=== PATIENT | male | born 1940 | race Caucasian/White ===

== ENCOUNTER 2017-01-15 10:18 | Inpatient (IN) ==
[2017-01-15] MEDS ORDERED: 0.9 % Sodium Chloride 1,000 ML IVC ONE ×4 (11:05→13:34)
--- NOTE | 2017-01-15 11:23 | Emergency Department Note ---
Disposition Clinical Impression: SIRS (systemic inflammatory response syndrome), Abdominal wall mass Hypotension Qualifiers: Hypotension type: unspecified hypotension type Qualified Code(s): I95.9 - Hypotension, unspecified Acute kidney failure Qualifiers: Acute renal failure type: unspecified Qualified Code(s): N17.9 - Acute kidney failure, unspecified Disposition: Admitted As Inpatient Condition: Fair [facility]: [facility]Primary Care Provider[facility] - Forms: Work/School Release, ED Satisfaction Letter Time of Disposition: 14:56 General Adult HPI - General Chief complaint: ED General Medical Stated complaint: rule out sepsis Time Seen by Provider: 01/15/17 10:23 Source: EMS Mode of arrival: EMS Limitations: no limitations Nursing Notes Reviewed: Yes Vital Signs Reviewed: Yes - History of Present Illness HPI Narrative: Patient 76-year-old male who initially presented to the [place] urgent care he is driving to the facility and he began to feel as though he is going to pass out when he became dizzy and then upon arrival he did not remember driving there. The patient had a blood pressure of 78/52, and the was pale in color. At the time the patient was alert and oriented 3 and cooperative. He was transferred here with the diagnosis of SIRS and hypotension secondary to a suspected abdominal wall abscess. Received 1 L of normal saline dose of Rocephin, and an aspirin at the urgent care center. On arrival to the emergency department the patient is alert and oriented and mentating appropriately. had worsening redness and swelling around his colostomy bag that started on January. On arrival to the [place] he did not recall driving there. 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 Patient denies any fevers, chills, chest pain, shortness of breath, nausea or vomiting. He does c/o dysuria that began today. Onset (ago): day(s) Pain Scale: 8 - Related Data Home Medications Medication Instructions Recorded Confirmed Albuterol Sulfate [Albuterol 2 puff IH Q8H PRN 12/15/15 01/15/17 Inhaler] Aspirin Enteric Coated [Aspirin EC] 81 mg PO DAILY 12/15/15 01/15/17 Benzonatate [Tessalon] 100 mg PO Q4H PRN 12/15/15 01/15/17 Budesonide/Formoterol 160/4.5 2 puff IH BIDR 12/15/15 01/15/17 [Symbicort 160/4.5] Carvedilol [Coreg] 50 mg PO BID 12/15/15 01/15/17 Guaifenesin 400 mg PO DAILY PRN 12/15/15 01/15/17 Ipratropium/Albuterol Neb [Duoneb] 3 ml IH Q6HR 12/15/15 01/15/17 Isosorbide MONOnitrate (24 HR) 45 mg PO DAILY 12/15/15 01/15/17 [Imdur] Metformin HCl [Glucophage] 500 mg PO BID 12/15/15 01/15/17 Nortriptyline [Pamelor] 10 mg PO TID 12/15/15 01/15/17 OxyCODONE ER (12 HR) [OxyCONTIN] 20 mg PO Q8H 12/15/15 01/15/17 Pantoprazole Sodium 40 mg PO DAILY 12/15/15 01/15/17 Terazosin HCl 2 mg PO HS 12/15/15 01/15/17 Valsartan [Diovan] 40 mg PO BID 12/15/15 01/15/17 Aloe Vera/Collagen [Aloe Rampart 1 appl TP AD PRN 01/15/17 01/15/17 Cleansing Foam] Atorvastatin Calcium [Lipitor] 10 mg PO DAILY 01/15/17 01/15/17 Clopidogrel [Plavix] 75 mg PO DAILY 01/15/17 01/15/17 Furosemide [Lasix] 20 mg PO QAM 01/15/17 01/15/17 Insulin NPH Human Isophane 22 unit SQ QAM 01/15/17 01/15/17 [Novolin N] Insulin NPH Human Isophane 27 unit SQ QPM 01/15/17 01/15/17 [Novolin N] L. Acidophilus/Pectin, [place] 1 cap PO DAILY 01/15/17 01/15/17 [Acidophilus Probiotic Capsule] Lisinopril 2.5 mg PO DAILY 01/15/17 01/15/17 Loratadine [Allergy Relief] 10 mg PO DAILY 01/15/17 01/15/17 Nitroglycerin [Nitrostat] 0.4 mg SL AD PRN 01/15/17 01/15/17 Spironolactone [Aldactone] 12.5 mg PO DAILY 01/15/17 01/15/17 Allergies Allergy/AdvReac Type Severity Reaction Status Date / Time iodine Allergy Hives Verified 12/15/15 11:22 ondansetron Allergy Hives Verified 01/15/17 11:38 [From Zofran (as hydrochloride)] All systems ED: reviewed and negative except as stated. Past Medical History - Past Medical History Medical history: Reports: arthritis, asthma, cardiomyopathy, COPD, coronary artery disease, diabetes, GERD, hyperlipidemia, hypertension, myocardial infarction, osteoporosis, peripheral artery disease, venous stasis, other Surgical history: Reports: angioplasty/stent, colostomy, coronary bypass (CABG) , herniorrhaphy (Bilateral hernia repair), other Psychiatric history: Reports: no psych history - Social History Smoking Status: Heavy tobacco smoker Smokeless Tobacco Status: No Alcohol use: Reports: none Drug use: Reports: none Physical Exam - General Limitations: no limitations General appearance: alert, in no apparent distress - Head Head exam: atraumatic, normocephalic - Eye Eye exam: Present: normal appearance, PERRL, EOMI - ENT ENT exam: normal exam, normal oropharynx - Neck Neck exam: Present: normal inspection, full ROM, trachea midline. Absent: lymphadenopathy - Chest Chest inspection: Present: normal inspection, symmetric chest wall rise, other ( surgical scar from CABG). Absent: rash - Respiratory Respiratory exam: Present: wheezes, other. Absent: respiratory distress, stridor, accessory muscle use - Expanded Respiratory Exam Location: wheezes: Lower, Left, Right, Upper, rales: Right, Lower (base) - Cardiovascular Cardiovascular exam: Present: regular rate, normal rhythm, normal heart sounds. Absent: JVD - Abdominal Exam Abdominal exam: Present: tenderness, hyperactive bowel sounds, other (Pt has an colostomy to the lateral right side of his periumbilical area. The area near the colostomy erythematous, warm, and has an area of induration 8x8 cm. He has an old surgical scar from his past colostomy that is healed with a small 1x1cm area of scabbing. No obvious drainage. Colostomy bag is 3/4 full. ). 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 ) - Back Exam Back exam: Present: normal inspection. Absent: rashes - Neurological Exam Neurological exam: Present: alert, oriented X3, CN II-XII intact. Absent: motor sensory deficit - Psychiatric Psychiatric exam: Present: normal affect, normal mood - Skin Skin exam: Present: warm, dry, rash (area of erythema, [id number], and induration as noted in the abdominal exam. ), pallor - Expanded Skin Exam Type of lesion: Present: rash Distribution: abdomen Description: Present: size (8x8cm), erythematous, swelling, indurated. Absent: fluctuant Course Course Narrative: Since the ED from the [place] [facility] for rule out sepsis. The blood pressure 78/52 to be pale in color. It was concerning for sepsis is transferred to our emergency department and while at the center of the patient had been given ceftriaxone, 1 L bolus normal saline, and 325mg aspirin. Patient had ABG done is within normal limits except for his lactate was slightly elevated at 1.6. CBC done with a white blood cell count of 14.8 and hemoglobin of 11.4. Troponin and was negative. His EKG showed a rate of 81 sinus rhythm with occasional PVCs T-wave inversions in multiple leads we will do a repeat EKG here and check his old EKGs Order a sepsis workup on this patient and additionally we will check a chest x-ray, CT of abdomen and pelvis without IV or oral contrast, and the repeat EKG. Also started a liter bolus of fluid. - Reevaluation(s) Reevaluation #1: I reviewed the patient's chest x-ray that was performed at the [place] prior to arrival today. Interpretation was done by myself without consult the radiologist. No widening of the mediastinum, visualized the diaphragmatic recesses I do not see any obvious pleural effusion, no focal infiltrate, trachea is midline, and no subcutaneous emphysema. CBC showed a mildly elevated WBC 13.4, coags were not concerning, chemistry showed elevated creatinine of 2.07 when compared to 1.24 a year ago this may be due to hypoperfusion. I am awaiting the results of the patient's CT abdomen/ pelvis. His EKG does have nonspecific ST wave abnormalities with T wave inversions that are new when compared to old. PE vital signs: HR 81 , RR18, BP 99/59, OxSat 99 on 2L She is stable in the room. Resting in bed. He is requesting something for pain but we notified him that we need to see improvements in his blood pressure before analgesics can be given. Patient understands. Time: 12:50 Reevaluation #2: Pt CT results back. Show hypermetabolic soft tissue in right rectus abdominus musculature appears increased since February 2016. Chronic abscess is considered less likely. Tissue sampling recommended. The patient had an episode of difficulty breathing, he became very anxious. His pulse ox was 98% on 2L. He normally receives 4 breathing treatments a day. Respiratory was paged for a treatment. The patient's blood pressure has been improving we will give him some dilaudid for pain. Time: 14:15 Reevaluation #3: Discuss the patient with contract manager hospitalist Sue Mercedes MD. She agrees to admit the patient. She requested we start vancomycin and consult surgery. Time: 14:36 Additional Reevaluation(s): Surgery: Dr. López has agreed to consult the patient in house. Vital Signs Temperature 98.5 F 01/15/17 10:21 Pulse Rate 81 01/15/17 10:21 Respiratory Rate 18 01/15/17 10:21 Blood Pressure 108/67 01/15/17 10:21 O2 Sat by Pulse Oximetry 97 01/15/17 10:21 Temperature 98.5 F 01/15/17 10:21 Pulse Rate 83 01/15/17 13:30 Respiratory Rate 22 01/15/17 14:17 Blood Pressure 125/67 01/15/17 13:30 O2 Sat by Pulse Oximetry 89 01/15/17 14:17 Oxygen Delivery Oxygen Delivery Nasal Cannula Medical Decision Making - MDM Narrative Medical decision making narrative: 77 male sent from the [place] urgent care for rule out sepsis due to patient being pale color and having a low blood pressure around 90s systolic. Since arrival to the ED we have given the patient 3 L boluses of normal saline his repeat blood pressure is 116/60 and improving. His CMP showed an elevated creatinine when compared to prior could be new or related to low perfusion. The patient's CXR did not appear to have a focal infitrate. His urine was negative. The patients CT Abdomen and Pelvis showed hypermetabolic soft tissue in the right rectus a bdmonius appearing to be increasing in size from last CT. Findings concerning for metastatic disease. Abscess unlikely. I believe the erythema and swelling near the patient's colostomy is a cellulitis. I consulted Dr. Mercedes (hospitalist) and she agreed to take the patient for treatment of his cellulitis and further investigation of his CT findings. She recommended starting vancomycin in ED and consult surgery. We consulted Dr. López and he agreed to see the patient in house. Pt understands and agrees with plan. - Medical Records Medical records reviewed: Yes I reviewed the patient's medical records. - Lab Data Lab results reviewed: Yes I reviewed the patient's lab results. Result diagrams: 01/15/17 11:25 01/15/17 11:25 Lab Results 01/15/17 01/15/17 01/15/17 Range/Units 11:25 11:25 11:25 WBC 13.4 H (4.3-11.1) K/mcL RBC 3.08 L (4.19-5.50) M/mcL Hgb 9.9 L (12.9-16.9) g/dL Hct 29.2 L (37.5-50.1) % MCV 94.8 (83.0-100.0) fL MCH 32.1 (28.0-33.3) pg MCHC 33.9 (31.6-35.5) g/dL RDW 12.8 (11.5-14.5) % Plt Count 196 (140-400) K/mcL MPV 9.4 (9.4-12.4) fL Immature Gran % 0.7 (0-4) % Seg Neutrophils % 73.2 % Lymphocytes % 12.6 % Monocytes % 8.1 % Eosinophils % 5.0 % Basophils % 0.4 % Neutrophils # 9.8 H (1.6-8.9) K/mcL Lymphocytes # 1.7 (0.6-4.6) K/mcL Monocytes # 1.1 (0.0-1.3) K/mcL Eosinophils # 0.7 H (0.0-0.6) K/mcL Basophils # 0.1 (0.0-0.2) K/mcL PT 13.9 H (9.4-12.1) Seconds INR 1.3 APTT 26.9 (26.0-36.0) Seconds Sodium 136 (136-145) mEq/L Potassium 4.5 (3.5-4.5) mEq/L Chloride 105 (98-109) mEq/L Carbon Dioxide 22 (19-29) mEq/L BUN 43 H (8-26) mg/dL Creatinine 2.07 H (0.72-1.25) mg/dL Est GFR ( Amer) 38 L (> 60) Est GFR (Non-Af Amer) 32 L (> 60) BUN/Creatinine Ratio 21 (6-26) Glucose 154 H (70-99) mg/dL Calculated Osmolality 296 (280-300) Lactic Acid (0.5-2.2) mmol/L Calcium 8.8 (8.6-10.8) mg/dL Phosphorus 4.0 (2.3-4.7) mg/dL Magnesium 1.4 L (1.6-2.6) mg/dL Total Bilirubin 0.2 (0.2-1.2) mg/dL Direct Bilirubin 0.2 (0.0-0.5) mg/dL Indirect Bilirubin 0.0 (0.0-1.2) mg/dL AST 9 (5-34) Units/L ALT 8 (0-55) Units/L Alkaline Phosphatase 73 (38-126) Units/L Troponin I (0-0.03) ng/mL Serum Total Protein 6.5 (6.0-8.3) g/dL Albumin 3.0 L (3.5-5.0) g/dL Globulin 3.5 (2.4-3.5) g/dL Albumin/Globulin Ratio 0.9 L (1.1-2.2) Urine Color (Yellow) Urine Clarity (Clear) Urine pH (5.0-8.0) pH Units Ur Specific [place] (1.010-1.025) Urine Protein (Neg-Trace) mg/dL Urine Glucose (UA) (Normal) mg/dL Urine Ketones (Negative) mg/dL Urine Blood (Negative) Urine Nitrite (Negative) Urine Bilirubin (Negative) Urine Urobilinogen (Normal) mg/dL Ur Leukocyte Esterase (Negative) Urine Microscopic RBC (0-3) per hpf Urine Microscopic WBC (0-3) per hpf Ur Squamous Epith Cells (None-Few) per lpf Urine Bacteria (None-Few) per hpf Hyaline Casts (None-Few) per lpf Ur Culture Indicated? (NO) 01/15/17 01/15/17 01/15/17 Range/Units 11:25 11:25 13:26 WBC (4.3-11.1) K/mcL RBC (4.19-5.50) M/mcL Hgb (12.9-16.9) g/dL Hct (37.5-50.1) % MCV (83.0-100.0) fL MCH (28.0-33.3) pg MCHC (31.6-35.5) g/dL RDW (11.5-14.5) % Plt Count (140-400) K/mcL MPV (9.4-12.4) fL Immature Gran % (0-4) % Seg Neutrophils % % Lymphocytes % % Monocytes % % Eosinophils % % Basophils % % Neutrophils # (1.6-8.9) K/mcL Lymphocytes # (0.6-4.6) K/mcL Monocytes # (0.0-1.3) K/mcL Eosinophils # (0.0-0.6) K/mcL Basophils # (0.0-0.2) K/mcL PT (9.4-12.1) Seconds INR APTT (26.0-36.0) Seconds Sodium (136-145) mEq/L Potassium (3.5-4.5) mEq/L Chloride (98-109) mEq/L Carbon Dioxide (19-29) mEq/L BUN (8-26) mg/dL Creatinine (0.72-1.25) mg/dL Est GFR ( Amer) (> 60) Est GFR (Non-Af Amer) (> 60) BUN/Creatinine Ratio (6-26) Glucose (70-99) mg/dL Calculated Osmolality (280-300) Lactic Acid 1.0 0.9 (0.5-2.2) mmol/L Calcium (8.6-10.8) mg/dL Phosphorus (2.3-4.7) mg/dL Magnesium (1.6-2.6) mg/dL Total Bilirubin (0.2-1.2) mg/dL Direct Bilirubin (0.0-0.5) mg/dL Indirect Bilirubin (0.0-1.2) mg/dL AST (5-34) Units/L ALT (0-55) Units/L Alkaline Phosphatase (38-126) Units/L Troponin I 0.01 (0-0.03) ng/mL Serum Total Protein (6.0-8.3) g/dL Albumin (3.5-5.0) g/dL Globulin (2.4-3.5) g/dL Albumin/Globulin Ratio (1.1-2.2) Urine Color (Yellow) Urine Clarity (Clear) Urine pH (5.0-8.0) pH Units Ur Specific [place] (1.010-1.025) Urine Protein (Neg-Trace) mg/dL Urine Glucose (UA) (Normal) mg/dL Urine Ketones (Negative) mg/dL Urine Blood (Negative) Urine Nitrite (Negative) Urine Bilirubin (Negative) Urine Urobilinogen (Normal) mg/dL Ur Leukocyte Esterase (Negative) Urine Microscopic RBC (0-3) per hpf Urine Microscopic WBC (0-3) per hpf Ur Squamous Epith Cells (None-Few) per lpf Urine Bacteria (None-Few) per hpf Hyaline Casts (None-Few) per lpf Ur Culture Indicated? (NO) 01/15/17 Range/Units 14:11 WBC (4.3-11.1) K/mcL RBC (4.19-5.50) M/mcL Hgb (12.9-16.9) g/dL Hct (37.5-50.1) % MCV (83.0-100.0) fL MCH (28.0-33.3) pg MCHC (31.6-35.5) g/dL RDW (11.5-14.5) % Plt Count (140-400) K/mcL MPV (9.4-12.4) fL Immature Gran % (0-4) % Seg Neutrophils % % Lymphocytes % % Monocytes % % Eosinophils % % Basophils % % Neutrophils # (1.6-8.9) K/mcL Lymphocytes # (0.6-4.6) K/mcL Monocytes # (0.0-1.3) K/mcL Eosinophils # (0.0-0.6) K/mcL Basophils # (0.0-0.2) K/mcL PT (9.4-12.1) Seconds INR APTT (26.0-36.0) Seconds Sodium (136-145) mEq/L Potassium (3.5-4.5) mEq/L Chloride (98-109) mEq/L Carbon Dioxide (19-29) mEq/L BUN (8-26) mg/dL Creatinine (0.72-1.25) mg/dL Est GFR ( Amer) (> 60) Est GFR (Non-Af Amer) (> 60) BUN/Creatinine Ratio (6-26) Glucose (70-99) mg/dL Calculated Osmolality (280-300) Lactic Acid (0.5-2.2) mmol/L Calcium (8.6-10.8) mg/dL Phosphorus (2.3-4.7) mg/dL Magnesium (1.6-2.6) mg/dL Total Bilirubin (0.2-1.2) mg/dL Direct Bilirubin (0.0-0.5) mg/dL Indirect Bilirubin (0.0-1.2) mg/dL AST (5-34) Units/L ALT (0-55) Units/L Alkaline Phosphatase (38-126) Units/L Troponin I (0-0.03) ng/mL Serum Total Protein (6.0-8.3) g/dL Albumin (3.5-5.0) g/dL Globulin (2.4-3.5) g/dL Albumin/Globulin Ratio (1.1-2.2) Urine Color Yellow (Yellow) Urine Clarity Clear (Clear) Urine pH 5.5 (5.0-8.0) pH Units Ur Specific [place] 1.019 (1.010-1.025) Urine Protein Trace (Neg-Trace) mg/dL Urine Glucose (UA) Normal (Normal) mg/dL Urine Ketones Negative (Negative) mg/dL Urine Blood Negative (Negative) Urine Nitrite Negative (Negative) Urine Bilirubin Negative (Negative) Urine Urobilinogen Normal (Normal) mg/dL Ur Leukocyte Esterase Negative (Negative) Urine Microscopic RBC 0-3 (0-3) per hpf Urine Microscopic WBC 0-3 (0-3) per hpf Ur Squamous Epith Cells Many H (None-Few) per lpf Urine Bacteria None Seen (None-Few) per hpf Hyaline Casts None Seen (None-Few) per lpf Ur Culture Indicated? NO (NO) - Radiology Data Radiology results reviewed: Yes I reviewed the patient's radiology results. Abdomen/Pelvis CT 01/15/17 11:09 IMPRESSION: 1. Previously described hypermetabolic soft tissue in the right rectus abdominus musculature appears increased in size since February 2016, now measuring 3.8 x 3.4 x 3.3 cm. Finding remains concerning for metastatic disease. Chronic abscess is considered less likely. Tissue sampling is recommended if not already performed. 2. 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 No complication. 3. Cholelithiasis. 4. Severe atherosclerosis. D/ / 01/15/2017 13:05:25 Mariel Shah MD / dane Interpreting Provider: Mariel Shah MD Abdomen/Pelvis CT 01/15/17 11:09 IMPRESSION: 1. Previously described hypermetabolic soft tissue in the right rectus abdominus musculature appears increased in size since February 2016, now measuring 3.8 x 3.4 x 3.3 cm. Finding remains concerning for metastatic disease. Chronic abscess is considered less likely. Tissue sampling is recommended if not already performed. 2. 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 No complication. 3. Cholelithiasis. 4. Severe atherosclerosis. D/ / 01/15/2017 13:05:25 Mariel Shah MD / dane Interpreting Provider: Mariel Shah MD Chest X-Ray 01/15/17 11:10 IMPRESSION: No acute process. Stable cardiomegaly D/ / Jhonatan Gomez MD / Jhonatan Gomez MD Interpreting Provider: Jhonatan Gomez MD - EKG Data EKG #1 EKG attestation: Yes I reviewed and interpreted this EKG. EKG results narrative: EKG was performed on 01/15/2017 11:38. The rate is 81 beats per minutes, IL interval of 161, QRS 116, QT 355, QTC of 393 is sinus rhythm. T wave changes in leads V2 through V5 T wave inversions that are new compared to his old EKG on 12-15-2015. This can be concerning for ischemia.
[2017-01-15] MEDS ORDERED: Ondansetron 4 MG/2 ML VIAL IVP ONE (11:24)
[2017-01-15] MEDS ORDERED: Ondansetron 4 MG/2 ML VIAL ONE (11:25)
[2017-01-15 11:34] LABS: Basophils # 0.1 K/mcL (0.0-0.2); Basophils % 0.4 %; Eosinophils # 0.7 K/mcL (0.0-0.6); Hematocrit 29.2 % (37.5-50.1); Hemoglobin 9.9 g/dL (12.9-16.9); Immature Granulocytes % 0.7 % (0-4); Lymphocytes # 1.7 K/mcL (0.6-4.6); Lymphocytes % 12.6 %; Mean Corpuscular HGB Conc 33.9 g/dL (31.6-35.5); Mean Corpuscular Hemoglobin 32.1 pg (28.0-33.3); Mean Corpuscular Volume 94.8 fL (83.0-100.0); Mean Platelet Volume 9.4 fL (9.4-12.4); Monocytes # 1.1 K/mcL (0.0-1.3); Monocytes % 8.1 %; Neutrophils # 9.8 K/mcL (1.6-8.9); Platelet Count 196 K/mcL (140-400); Red Blood Count 3.08 M/mcL (4.19-5.50); Red Cell Distribution Width 12.8 % (11.5-14.5); Segmented Neutrophils % 73.2 %
[2017-01-15 11:40] LABS: INR 1.3; Prothrombin Time 13.9 Seconds (9.4-12.1)
[2017-01-15 11:42] LABS: Activated Partial Thrombo Time 26.9 Seconds (26.0-36.0)
[2017-01-15 11:49] LABS: Albumin/Globulin Ratio 0.9 (1.1-2.2); Bilirubin,Direct 0.2 mg/dL (0.0-0.5); Bilirubin,Total 0.2 mg/dL (0.2-1.2); Calcium 8.8 mg/dL (8.6-10.8); Globulin 3.5 g/dL (2.4-3.5); Magnesium 1.4 mg/dL (1.6-2.6); Potassium 4.5 mEq/L (3.5-4.5); Total Protein 6.5 g/dL (6.0-8.3)
--- NOTE | 2017-01-15 13:56 | Emergency Department Note ---
START Narrative - START START: I examined this patient and my medical decision-making was reviewed with the METAL LOADER/PA/Advanced Practice Nurse/Resident Physician. I agree with the documented findings, disposition and treatment plan as described except to the extent set forth below. ED attending: Patient seen with the emergency medicine resident Dr. Whitaker. Please see copy of this note for H&P evaluation and management and ED disposition. We both had independent [id number] time in contact with this patient. Briefly: 76-year-old male transferred from a local [facility] by EMS for "rule out sepsis. Patient has a history of colostomy many years ago has been having intermittent "infections". Increasing abdominal pain and erythema for the past 24 hours around his stoma site. Patient presented to the [facility] and was posturally hypotensive sitting up he went to his low as 80 systolic. He was at 90-100 systolic here with Kait. Patient 3 L normal saline and still has not felt the urge to urinate. His acute kidney injury with a creatinine of 2.1 which is new. Patient's abdominal pelvic CT shows the indurated mass that we palpated possibly suspected neoplasm. Patient's lactate within normal limits. Because of Sirs criteria. Provided 1 hour of critical care services for this patient. Awaiting urinalysis and then will admit patient.
[2017-01-15] MEDS ORDERED: *HR* HYDROmorphone (PF) 1 MG/ML SYRINGE IVP ONE (14:02)
[2017-01-15] MEDS ORDERED: Ipratropium/Albuterol Neb 3 ML IH ONE (14:06)
[2017-01-15 14:19] LABS: Bilirubin,Urine Negative (Negative); Blood,Urine Negative (Negative); Clarity,Urine Clear (Clear); Color,Urine Yellow (Yellow); Glucose,Urine (UA) Normal (Normal); Ketones,Urine Negative (Negative); Leukocyte Esterase,Urine Negative (Negative); Nitrite,Urine Negative (Negative); PH,Urine 5.5 pH Units (5.0-8.0); Protein,Urine Trace mg/dL (Neg-Trace); Specific Gravity,Urine 1.019 (1.010-1.025); Urobilinogen,Urine Normal (Normal)
[2017-01-15 14:20] LABS: Bacteria,Urine None Seen per hpf (None-Few); Hyaline Casts,Urine None Seen per lpf (None-Few); RBC,Urine 0-3 per hpf (0-3); Squamous Epithelial Cell,Urine Many per lpf (None-Few); WBC,Urine 0-3 per hpf (0-3)
[2017-01-15] MEDS ORDERED: Vancomycin 1,000 MG in D5% in Water 250 ML IVPB ONE (14:33)
--- NOTE | 2017-01-15 16:21 | General Surgery Consult Note ---
<Emil Esqueda - Last Filed: 01/15/17 17:04> Date of Encounter: 01/15/17 Time of Encounter: 16:19 Assessment and Plan (1) Abdominal wall mass Current Visit: Yes Status: Acute Abdominal CT performed on 01/15/2017 demonstrates a hypermetabolic metabolic mass about the right rectus abdominis muscle that is increased since the previous study was performed. No fluctuance noted Patient reports a history of multiple I&D's just inferior to this midline mass on his abdomen. Most recently was 3 months ago, but did have this performed 3 different times. The scar is noted on examination and is healed. This history of wound complications likely attributed to his diabetic noncompliance and smoking. Vital signs stable IV antibiotics - vancomycin (pharmacy dosed) Mildly elevated leukocytosis of 13.4 with unknown source. - Blood cultures pending. - Urine negative. -Considering a possible infected mess from prior hernia repair At this time no surgical intervention is required. Continue supportive care and management Repeat a.m. labs. (2) Leukocytosis Current Visit: Yes Status: Acute See above. Qualifiers: Leukocytosis type: unspecified Qualified Code(s): D72.829 - Elevated white blood cell count, unspecified (3) Diabetes mellitus Current Visit: No Status: Chronic Qualifiers: Diabetes mellitus type: type 2 Diabetes mellitus complication status: with unspecified complications Diabetes mellitus correction insulin use: without gas furnace installer use Qualified Code(s): E11.8 - Type 2 diabetes mellitus with unspecified complications (4) COPD (chronic obstructive pulmonary disease) Current Visit: Yes Status: Acute Qualifiers: COPD type: unspecified COPD Qualified Code(s): J44.9 - Chronic obstructive pulmonary disease, unspecified (5) Tobacco abuse Current Visit: Yes Status: Acute Smoking cessation education Nicotine patch DuoNebs q6hrs when necessary (6) Colostomy care Current Visit: Yes Status: Acute History of Present Illness Consult date: 01/15/17 Reason for consult: abdominal pain Requesting physician: Taqueria Cullen History of present illness: Mr. Barcenas is a very pleasant 76-year-old male with past medical history of asthma, COPD, CAD, diabetes, GERD, [place], osteoporosis, PAD and venous stasis who presents to the [facility] emergency department with chief complaint of abdominal pain. Patient was seen at the [facility] and was transferred to our emergency department to rule out sepsis. On arrival, his vitals were stable, leukocytosis of the 13.4, hemoglobin 9.9, creatinine of 2.07 and negative urine. Blood cultures taken. Patient stated he has a history of a colostomy for many years and has been seen recently 3 different times for an abdominal midline abscess that is near his colostomy. During each visit for these complaints, he reports an I&D and antibiotics was performed at a [facility]. Mr. Barcenas reported to the emergency room this morning because of an abdominal mass that is increasing in size. Abdominal CT in the emergency room demonstrates a hypermetabolic soft tissue in the right rectus abdominus musculature that appears to have increased in size since February 2016, now measuring 3.8 x 3.4 x 3.3 cm. and thus surgery was consulted. After evaluation , he describes this newfound pain of 3 days duration to be sharp in nature and located approximately 5 cm superior to the umbilicus. This pain is non- radiating and only tender to palpation. He denies any recent changes in his stool within his colostomy, fevers, nausea or vomiting. There is no drainage from his previous sites of I&D at this time and he states that he used to "pick open the scab and let the wound drain". On examination there is no fluctuance noted suggesting he absence of an abscess. Patient will be admitted to [facility] with medicine as a primary and we will continue to follow with recommendations. Past Med Surg Social Fam HX - Past Medical History Medical history: arthritis, asthma, cardiomyopathy, COPD, coronary artery disease, diabetes, GERD, hyperlipidemia, hypertension, myocardial infarction, osteoporosis, peripheral artery disease, venous stasis, other Psychiatric history: no psych history - Past Surgical History Surgical History: angioplasty/stent, colostomy, coronary bypass (CABG), herniorrhaphy (Bilateral hernia repair), other - Social History Smoking Status: Heavy tobacco smoker Smokeless Tobacco Status: No Alcohol use: none Drug use: none Medications and Allergies Albuterol Sulfate [Albuterol Inhaler] 2 puff IH Q8H PRN 12/15/15 [History] Aspirin Enteric Coated [Aspirin EC] 81 mg PO DAILY 12/15/15 [History] Benzonatate [Tessalon] 100 mg PO Q4H PRN 12/15/15 [History] Budesonide/Formoterol 160/4.5 [Symbicort 160/4.5] 2 puff IH BIDR 12/15/15 [ History] Carvedilol [Coreg] 50 mg PO BID 12/15/15 [History] Guaifenesin 400 mg PO DAILY PRN 12/15/15 [History] Ipratropium/Albuterol Neb [Duoneb] 3 ml IH Q6HR 12/15/15 [History] Isosorbide MONOnitrate (24 HR) [Imdur] 45 mg PO DAILY 12/15/15 [History] Metformin HCl [Glucophage] 500 mg PO BID 12/15/15 [History] Nortriptyline [Pamelor] 10 mg PO TID 12/15/15 [History] OxyCODONE ER (12 HR) [OxyCONTIN] 20 mg PO Q8H 12/15/15 [History] Pantoprazole Sodium 40 mg PO DAILY 12/15/15 [History] Terazosin HCl 2 mg PO HS 12/15/15 [History] Valsartan [Diovan] 40 mg PO BID 12/15/15 [History] Aloe Vera/Collagen [Aloe [place] Cleansing Foam] 1 appl TP AD PRN 01/15/17 [ History] Atorvastatin Calcium [Lipitor] 10 mg PO DAILY 01/15/17 [History] Clopidogrel [Plavix] 75 mg PO DAILY 01/15/17 [History] Furosemide [Lasix] 20 mg PO QAM 01/15/17 [History] Insulin NPH Human Isophane [Novolin N] 22 unit SQ QAM 01/15/17 [History] Insulin NPH Human Isophane [Novolin N] 27 unit SQ QPM 01/15/17 [History] L. Acidophilus/Pectin, [place] [Acidophilus Probiotic Capsule] 1 cap PO DAILY [History] Lisinopril 2.5 mg PO DAILY 01/15/17 [History] Loratadine [Allergy Relief] 10 mg PO DAILY 01/15/17 [History] Nitroglycerin [Nitrostat] 0.4 mg SL AD PRN 01/15/17 [History] Spironolactone [Aldactone] 12.5 mg PO DAILY 01/15/17 [History] Allergies iodine Allergy (Verified 12/15/15 11:22) Hives TOPICAL IODINE/ PT IS OK WITH [id number] FOR CTA'S ondansetron [From Zofran (as hydrochloride)] Allergy (Verified 01/15/17 11:38) Hives Review of Systems All systems PM: A 10-system review of systems was performed and is negative for pertinent findings except as documented above in the HPI. - Constitutional no headache(s), no weight gain, no weight loss - Cardiovascular as per HPI, dyspnea on exertion - Respiratory as per HPI, dyspnea on exertion - Gastrointestinal as per HPI, abdominal pain, no vomiting - Musculoskeletal stiffness - Integumentary as per HPI, wounds, no erythema - Neurological no headache(s), no numbness - Psychiatric no mood swings - Endocrine fatigue General Surgery Exam Initial Vital Signs Temp Pulse Resp BP Pulse Ox 98.5 F 81 18 108/67 97 01/15/17 10:21 01/15/17 10:21 01/15/17 10:21 01/15/17 10:21 01/15/17 10:21 - General physical appearance well developed, well nourished, no distress - Eyes normal ocular movement - ENT normal mucosa - Neck trachea midline - Respiratory normal respiratory effort, clear to auscultation - Cardiovascular Cardiovascular exam: Present: RRR, murmurs - Abdomen Abdomen general surgery: Present: bowel sounds present, soft, tender (Midline 5 cm superior to the umbilicus), wound (Colostomy present in right lower quadrant , intact.) - Integumentary Integumentary general surgery: Present: warm and dry - Neurologic Present: CN 2-12 grossly intact - Psychiatric Psychiatric general surgery: Present: appropriate, oriented to person, oriented to place, oriented to time, speech is normal, memory intact Exam Initial Vital Signs Temp Pulse Resp BP Pulse Ox 98.5 F 81 18 108/67 97 01/15/17 10:21 01/15/17 10:21 01/15/17 10:21 01/15/17 10:21 01/15/17 10:21 Results - Labs 01/15/17 11:25 01/15/17 11:25 Short CBC 01/15/17 Range/Units 11:25 WBC 13.4 H (4.3-11.1) K/mcL Hgb 9.9 L (12.9-16.9) g/dL Hct 29.2 L (37.5-50.1) % Plt Count 196 (140-400) K/mcL Neutrophils # 9.8 H (1.6-8.9) K/mcL BMP 01/15/17 Range/Units 11:25 Sodium 136 (136-145) mEq/L Potassium 4.5 (3.5-4.5) mEq/L Chloride 105 (98-109) mEq/L Carbon Dioxide 22 (19-29) mEq/L BUN 43 H (8-26) mg/dL Creatinine 2.07 H (0.72-1.25) mg/dL Glucose 154 H (70-99) mg/dL Calcium 8.8 (8.6-10.8) mg/dL Cardiac Enzymes 01/15/17 Range/Units 11:25 Troponin I 0.01 (0-0.03) ng/mL Liver Function 01/15/17 Range/Units 11:25 Total Bilirubin 0.2 (0.2-1.2) mg/dL Direct Bilirubin 0.2 (0.0-0.5) mg/dL AST 9 (5-34) Units/L ALT 8 (0-55) Units/L Alkaline Phosphatase 73 (38-126) Units/L Albumin 3.0 L (3.5-5.0) g/dL Urine 01/15/17 Range/Units 14:11 Urine Color Yellow (Yellow) Urine Clarity Clear (Clear) Urine pH 5.5 (5.0-8.0) pH Units Ur Specific [place] 1.019 (1.010-1.025) Urine Protein Trace (Neg-Trace) mg/dL Urine Glucose (UA) Normal (Normal) mg/dL Vital Signs Temp Pulse Resp BP Pulse Ox 01/15/17 16:09 18 131/86 01/15/17 14:17 22 89 01/15/17 13:30 83 18 125/67 98 01/15/17 12:30 83 18 102/58 97 01/15/17 11:45 83 18 97/64 97 01/15/17 11:05 81 18 99/59 99 01/15/17 10:32 98 01/15/17 10:21 98.5 F 81 18 108/67 97 Intake and Output 01/15/17 01/15/17 01/15/17 07:59 15:59 23:59 Intake Total 1999 Balance 1999 Intake: IV Fluids 1999 0.9 % Sodium Chloride 1999 000 ML @ 3750 mls/hr IVC .Q16M ONE Rx#:[id number] Other: Weight 94.347 kg Patient Weight 01/15/17 23:59 Weight 94.347 kg - Imaging CT scan - abdomen: report reviewed, image reviewed Consult Discharge Plan - Plan [facility]errals: [facility]Primary Care Provider[facility] - <Sincere López - Last Filed: 01/15/17 21:52> Date of Encounter: 01/15/17 Past Med Surg Social Fam HX - Family History Father Name: shari Family Member Ethnicity: Non- Living Status: Age at : 72 Cause of : small lung cancer Hx Family Respiratory Disorders: Yes Hx Family Cancer: Yes Review of Systems All systems PM: A 10-system review of systems was performed and is negative for pertinent findings except as documented above in the HPI. General Surgery Exam Initial Vital Signs Temp Pulse Resp BP Pulse Ox 98.5 F 81 18 108/67 97 01/15/17 10:21 01/15/17 10:21 01/15/17 10:21 01/15/17 10:21 01/15/17 10:21 Exam Initial Vital Signs Temp Pulse Resp BP Pulse Ox 98.5 F 81 18 108/67 97 01/15/17 10:21 01/15/17 10:21 01/15/17 10:21 01/15/17 10:21 01/15/17 10:21 Results - Labs 01/15/17 11:25 01/15/17 11:25 Abnormal lab results WBC 13.4 K/mcL (4.3-11.1) H 01/15/17 11:25 RBC 3.08 M/mcL (4.19-5.50) L 01/15/17 11:25 Hgb 9.9 g/dL (12.9-16.9) L 01/15/17 11:25 Hct 29.2 % (37.5-50.1) L 01/15/17 11:25 Neutrophils # 9.8 K/mcL (1.6-8.9) H 01/15/17 11:25 Eosinophils # 0.7 K/mcL (0.0-0.6) H 01/15/17 11:25 PT 13.9 Seconds (9.4-12.1) H 01/15/17 11:25 BUN 43 mg/dL (8-26) H 01/15/17 11:25 Creatinine 2.07 mg/dL (0.72-1.25) H 01/15/17 11:25 Est GFR ( Amer) 38 (> 60) L 01/15/17 11:25 Est GFR (Non-Af Amer) 32 (> 60) L 01/15/17 11:25 Glucose 154 mg/dL (70-99) H 01/15/17 11:25 Hemoglobin A1c 7.3 % (-5.6) H 01/15/17 11:25 Magnesium 1.4 mg/dL (1.6-2.6) L 01/15/17 11:25 Albumin 3.0 g/dL (3.5-5.0) L 01/15/17 11:25 Albumin/Globulin Ratio 0.9 (1.1-2.2) L 01/15/17 11:25 Ur Squamous Epith Cells Many per lpf (None-Few) H 01/15/17 14:11 All other labs normal. - Attending Attestation I examined this patient and my medical decision-making was reviewed with the WASTE EXAMINER/PA/Advanced Practice Nurse/Resident Physician. I agree with the documented findings, disposition and treatment plan as described except to the extent set forth below. The patient is seen and evaluated with the resident. He has a complex abdomen with a multiple entry midline and a colostomy on the right side. The abdomen is indurated and there some portions that are erythematous. These roughly correlate with the CAT scan findings. The patient states that he has had multiple hernia repairs in this area and since these may represent recurrent infections my concern is that of infected foreign body. We will watch him very closely first signs of fluctuance that would require incision and drainage and he may require operative debridement and incision and drainage. Sincere López MD FACS
[2017-01-15] MEDS ORDERED: *HR* Morphine 2 MG/ML SYRINGE IVP PRN (16:39)
[2017-01-15] MEDS ORDERED: Naloxone 0.4 MG/ML INJ IVP PRN (16:39)
[2017-01-15] MEDS ORDERED: Acetaminophen 325 MG TABLET PO PRN (16:39)
[2017-01-15] MEDS ORDERED: Ondansetron 4 MG/2 ML VIAL IVP PRN (16:39)
[2017-01-15] MEDS ORDERED: *HR* Dextrose 50 % in Water (Syg) 50 ML SYRINGE IVP PRN (16:48)
[2017-01-15] MEDS ORDERED: Dextrose Gel 15 GM PO PRN ×2 (16:48)
[2017-01-15] MEDS ORDERED: D5% in Water 1,000 ML IVC PRN (16:48)
[2017-01-15] MEDS ORDERED: Vancomycin 1,500 MG in D5% in Water 250 ML IVPB SCH (17:00)
[2017-01-15 17:04] LABS: Hemoglobin A1C 7.3 %
--- NOTE | 2017-01-15 17:59 | Internal Med History&Physical ---
Date of Encounter: 01/15/17 Time of Encounter: 16:15 Assessment and Plan (1) Cellulitis Current visit: Yes Status: Acute Abdominal wall cellulitis. Does not meet sepsis criteria, no fever/tachycardia/ leukocytosis/lactic acidosis. Received a dose of IV Rocephin, will start IV vancomycin and Zosyn for now. Follow-up blood cultures. CT abdomen/pelvis shows increasing hypermetabolic soft tissue in the right rectus abdominis musculature, but no e/o abscess. Surgery consult. Pain control with when necessary oral Percocet and IV morphine. Qualifiers: Site of cellulitis: trunk Site of cellulitis of trunk: abdominal wall Qualified Code(s): L03.311 - Cellulitis of abdominal wall (2) Congestive heart failure Current visit: Yes Status: Chronic Not in acute exacerbation. Recent echocardiogram shows moderately decreased ejection fraction around 40-45% with regional wall motion abnormalities. Continue home medications and telemetry monitoring. Qualifiers: Congestive heart failure type: combined Congestive heart failure chronicity : chronic Qualified Code(s): I50.42 - Chronic combined systolic (congestive) and diastolic (congestive) heart failure (3) CAD (coronary artery disease) Current visit: Yes Status: Chronic Continue aspirin, Plavix, beta danilo and statin. Telemetry monitoring. Qualifiers: Coronary Disease-Associated Artery/Lesion type: bypass graft [place] vs. transplanted heart: [place] heart Associated angina: without angina Qualified Code(s): I25.810 - Atherosclerosis of coronary artery bypass graft(s) without angina pectoris (4) Dyslipidemia Current visit: Yes Status: Chronic (5) Diabetes mellitus Current visit: Yes Status: Chronic Patient is noted to have significant peripheral vascular disease status post left BKA. Monitor blood glucose closely with Accu-Chek monitoring and basal bolus insulin regimen. Diabetic diet. 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 Nicotine transdermal patch as needed. (8) COPD (chronic obstructive pulmonary disease) Current visit: Yes Status: Chronic Not in acute exacerbation. Continue bronchodilators, inhaled corticosteroids and supplemental oxygen. He is noted to be on home oxygen. 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 Denies history of colon cancer. Internal Medicine - H&P: HPI Chief complaint: Abdominal pain Admitted From: Emergency Dept Plans for Post Hospital Care: Home History of present illness: Mr. Barcenas is a 76 year old male with h/o- subtotal colectomy and colostomy about 7 years ago at [facility], was sent from [facility] FOR EVALUATION OF abdominal skin infection. Patient reports having had multiple bouts of surgical wound infections since his colostomy surgery and underwent several office-based drainages and wound care at home. He currently reports worsening pain, swelling and redness over his abdomen, close to his colostomy site. No open wounds or drainage, but he reports mass-like induration beneath his skin. No fever, chills, nausea, vomiting, high colostomy output. Past Med Surg Social Fam HX - Past Medical History Medical history: arthritis, asthma, cardiomyopathy, COPD, coronary artery disease, diabetes, GERD, hyperlipidemia, hypertension, myocardial infarction, osteoporosis, peripheral artery disease, venous stasis, other Psychiatric history: no psych history - Past Surgical History Surgical History: angioplasty/stent, colostomy, coronary bypass (CABG), herniorrhaphy, other (left BKA) - Social History Smoking Status: Current every day smoker Packs per day: 1 Smokeless Tobacco Status: No Alcohol use: none Drug use: none Occupational status: disabled Current living situation: Home - Independent Activity Level: Uses cane/walker Recent Out of Country Travel Within the Last 8 Weeks: No - Family History Father Name: shari Family Member Ethnicity: Non- Living Status: Age at : 72 Cause of : small lung cancer Hx Family Respiratory Disorders: Yes Hx Family Cancer: Yes Internal Medicine - H&P: Meds Albuterol Sulfate [Albuterol Inhaler] 2 puff IH Q8H PRN 12/15/15 [History] Aspirin Enteric Coated [Aspirin EC] 81 mg PO DAILY 12/15/15 [History] Benzonatate [Tessalon] 100 mg PO Q4H PRN 12/15/15 [History] Budesonide/Formoterol 160/4.5 [Symbicort 160/4.5] 2 puff IH BIDR 12/15/15 [ History] Carvedilol [Coreg] 50 mg PO BID 12/15/15 [History] Guaifenesin 400 mg PO DAILY PRN 12/15/15 [History] Ipratropium/Albuterol Neb [Duoneb] 3 ml IH Q6HR 12/15/15 [History] Isosorbide MONOnitrate (24 HR) [Imdur] 45 mg PO DAILY 12/15/15 [History] Metformin HCl [Glucophage] 500 mg PO BID 12/15/15 [History] Nortriptyline [Pamelor] 10 mg PO TID 12/15/15 [History] OxyCODONE ER (12 HR) [OxyCONTIN] 20 mg PO Q8H 12/15/15 [History] Pantoprazole Sodium 40 mg PO DAILY 12/15/15 [History] Terazosin HCl 2 mg PO HS 12/15/15 [History] Valsartan [Diovan] 40 mg PO BID 12/15/15 [History] Aloe Vera/Collagen [Aloe [place] Cleansing Foam] 1 appl TP AD PRN 01/15/17 [ History] Atorvastatin Calcium [Lipitor] 10 mg PO DAILY 01/15/17 [History] Clopidogrel [Plavix] 75 mg PO DAILY 01/15/17 [History] Furosemide [Lasix] 20 mg PO QAM 01/15/17 [History] Insulin NPH Human Isophane [Novolin N] 22 unit SQ QAM 01/15/17 [History] Insulin NPH Human Isophane [Novolin N] 27 unit SQ QPM 01/15/17 [History] L. Acidophilus/Pectin, [place] [Acidophilus Probiotic Capsule] 1 cap PO DAILY [History] Lisinopril 2.5 mg PO DAILY 01/15/17 [History] Loratadine [Allergy Relief] 10 mg PO DAILY 01/15/17 [History] Nitroglycerin [Nitrostat] 0.4 mg SL AD PRN 01/15/17 [History] Spironolactone [Aldactone] 12.5 mg PO DAILY 01/15/17 [History] Allergies iodine Allergy (Verified 12/15/15 11:22) Hives TOPICAL IODINE/ PT IS OK WITH [id number] FOR CTA'S ondansetron [From Zofran (as hydrochloride)] Allergy (Verified 01/15/17 11:38) Hives All Systems PM: A 10-system review of systems was performed and is negative for pertinent findings except as documented above in the HPI. - Constitutional Constitutional: no chills, no fever(s), no night sweats - EENT Eyes: no change in vision, no discharge, no pain, no photophobia Ears: no ear discharge, no ear pain, no tinnitus Nose, mouth and throat: no dysphagia, no nasal discharge, no neck pain, no sore throat - Cardiovascular Cardiovascular ROS IM: no chest pain, no diaphoresis, no dyspnea, no lightheadedness, no palpitations, no syncope - Respiratory Respiratory: no cough, no dyspnea, no wheezing, no excessive phlegm production - Gastrointestinal Gastrointestinal: abdominal pain - Musculoskeletal Musculoskeletal ROS IM: no numbness, no tingling - Integumentary Integumentary IM: as per HPI, erythema - Neurological Neurological ROS: no confusion, no convulsions, no focal weakness, no numbness, no tingling, no tremor(s) - Hematologic/Lymphatic Hematologic/Lymphatic: no easy bruising - Constitutional Vitals: Temp Pulse Resp BP Pulse Ox 98.2 F 95 18 122/75 96 01/15/17 17:24 01/15/17 17:24 01/15/17 17:24 01/15/17 17:24 01/15/17 17:24 General appearance: Present: A&O X 3, answers questions appropriately - Respiratory Respiratory exam: Present: wheezes (end expiratory wheezing and scattered rhonchi B/L). Absent: accessory muscle use, rales, rhonchi - Cardiovascular Cardiovascular exam: Present: RRR, +S1, +S2. Absent: diastolic murmur, gallop, rubs, systolic murmur - GI/Abdominal GI/Abdominal exam: Present: normal bowel sounds, soft (erythema, induration with subcutaneous mass about 4*5cm, tenderness in central abdomen, beside colostomy site; no surgical wound infection/discharge;), no peritoneal signs. Absent: distended, tenderness - Extremities Exam Extremities exam: Present: full ROM (left BKA), warm, radial pulses palpable and symetrical. Absent: calf tenderness, cyanotic, pedal edema - Neurological Exam Neurological exam: Present: CN II-XII intact, oriented X3, no focal deficits. Absent: pronater drift, facial droop, speech deficit - Skin Skin exam: Present: dry, intact Internal Med - H&P Results - Labs CBC & Chem 7: 01/16/17 03:49 01/16/17 03:49
[2017-01-15] MEDS: *HR* Heparin 5,000 UNIT/ML VIAL SQ SCH (18:29)
[2017-01-15] MEDS: 0.9 % Sodium Chloride 1,000 ML IVC SCH (18:29)
[2017-01-15] MEDS: Piperacillin/Tazobactam 3.375 GM in D5% in Water (Mini-Bag+) 100 ML IVPB SCH (18:31)
[2017-01-15] MEDS: Budesonide/Formoterol 160/4.5 MDI IH SCH (20:14)
[2017-01-15] MEDS: Ipratropium/Albuterol Neb 3 ML IH PRN (20:18)
[2017-01-15] MEDS: Insulin LISPRO 300 UNITS/3 ML VIAL SQ SCH (21:23)
[2017-01-15] MEDS: *HR* OxyCODONE Immed Rel 5 MG TABLET PO PRN (21:24)
[2017-01-16] MEDS ORDERED: Piperacillin/Tazobactam 3.375 GM in D5% in Water (Mini-Bag+) 100 ML IVPB SCH
[2017-01-16] MEDS: Piperacillin/Tazobactam 3.375 GM in D5% in Water (Mini-Bag+) 100 ML IVPB SCH ×3 (02:04→15:11)
[2017-01-16] MEDS: Ipratropium/Albuterol Neb 3 ML IH PRN (02:33)
[2017-01-16] MEDS ORDERED: 0.9 % Sodium Chloride 250 ML IVC ONE (04:19)
[2017-01-16 04:23] LABS: Basophils % 0.4 %; Eosinophils # 0.5 K/mcL (0.0-0.6); Eosinophils % 4.2 %; Hematocrit 27.8 % (37.5-50.1); Hemoglobin 9.3 g/dL (12.9-16.9); Immature Granulocytes % 0.5 % (0-4); Lymphocytes % 9.6 %; Mean Corpuscular HGB Conc 33.5 g/dL (31.6-35.5); Mean Corpuscular Hemoglobin 31.6 pg (28.0-33.3); Mean Corpuscular Volume 94.6 fL (83.0-100.0); Mean Platelet Volume 9.8 fL (9.4-12.4); Monocytes # 0.8 K/mcL (0.0-1.3); Monocytes % 7.8 %; Neutrophils # 8.3 K/mcL (1.6-8.9); Platelet Count 197 K/mcL (140-400); Red Blood Count 2.94 M/mcL (4.19-5.50); Red Cell Distribution Width 12.6 % (11.5-14.5); Segmented Neutrophils % 77.5 %
[2017-01-16 04:36] LABS: BUN/Creatinine Ratio 18 (6-26); Calcium 8.4 mg/dL (8.6-10.8); Carbon Dioxide 22 mEq/L (19-29); Chloride 109 mEq/L (98-109); Glucose 140 mg/dL (70-99); Magnesium 1.2 mg/dL (1.6-2.6); Osmolality,Calculated 292 (280-300); Potassium 4.1 mEq/L (3.5-4.5); Sodium 138 mEq/L (136-145); eGFR For African Americans > 60 (> 60); eGFR For Non-African Americans 56 (> 60)
[2017-01-16 04:40] LABS: Blood Urea Nitrogen 23 mg/dL (8-26)
[2017-01-16] MEDS: *HR* Heparin 5,000 UNIT/ML VIAL SQ SCH ×2 (05:08→17:22)
[2017-01-16] MEDS: Insulin LISPRO 300 UNITS/3 ML VIAL SQ SCH ×4 (08:22→21:04)
[2017-01-16] MEDS: Budesonide/Formoterol 160/4.5 MDI IH SCH ×2 (08:23→20:12)
[2017-01-16] MEDS: *HR* OxyCODONE Immed Rel 5 MG TABLET PO PRN ×3 (08:30→21:02)
[2017-01-16] MEDS: Magnesium Oxide 400 MG TABLET PO SCH ×3 (08:31→21:02)
[2017-01-16] MEDS ORDERED: Aspirin Enteric Coated 81 MG Tablet PO SCH (09:00)
[2017-01-16] MEDS: 0.9 % Sodium Chloride 1,000 ML IVC SCH ×2 (09:31→15:17)
--- NOTE | 2017-01-16 11:01 | General Surgery Progress Note ---
<Emil Esqueda - Last Filed: 01/16/17 11:07> Date of Encounter: 01/16/17 Time of Encounter: 10:59 - Assessment and Plan (1) Abdominal wall mass Current Visit: Yes Status: Acute 01/15/17: Abdominal CT performed on 01/15/2017 demonstrates a hypermetabolic metabolic mass about the right rectus abdominis muscle that is increased since the previous study was performed. No fluctuance noted Patient reports a history of multiple I&D's just inferior to this midline mass on his abdomen. Most recently was 3 months ago, but did have this performed 3 different times. The scar is noted on examination and is healed. This history of wound complications likely attributed to his diabetic noncompliance and smoking. Vital signs stable IV antibiotics - vancomycin (pharmacy dosed) Mildly elevated leukocytosis of 13.4 with unknown source. - Blood cultures pending. - Urine negative. -Considering a possible infected mess from prior hernia repair At this time no surgical intervention is required. Continue supportive care and management Repeat a.m. labs. 01/16/17: Vital signs stable Leukocytosis has resolved Pain controlled At this time we recommend the patient return to the [facility] [place] for further evaluation Continue IV Abx - Vanc and Zosyn *Surgery will sign off at this time. Thank you for allowing us to to care for this patient. Please call for further questions or concerns. (2) Leukocytosis Current Visit: Yes Status: Acute Resolved. wbc 13.4>10.7 Qualifiers: Leukocytosis type: unspecified Qualified Code(s): D72.829 - Elevated white blood cell count, unspecified (3) Diabetes mellitus Current Visit: Yes Status: Chronic Qualifiers: Diabetes mellitus type: type 2 Diabetes mellitus complication status: with circulatory complication Diabetes mellitus complication detail: with peripheral angiopathy without gangrene Diabetes mellitus assisted insulin use : with equipment operator intermodal yard use Qualified Code(s): E11.51 - Type 2 diabetes mellitus with diabetic peripheral angiopathy without gangrene; Z79.4 - termination clerk (current ) use of insulin (4) COPD (chronic obstructive pulmonary disease) Current Visit: Yes Status: Chronic Qualifiers: COPD type: emphysema Emphysema type: unspecified Qualified Code(s): J43.9 - Emphysema, unspecified (5) Tobacco abuse Current Visit: Yes Status: Chronic Smoking cessation education Nicotine patch DuoNebs q6hrs when necessary (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 Subjective Patient reports: feels better, still having pain, tolerating a regular diet ( Cardiac and diabetic), voiding w/o difficulty, bowel movement (Colostomy) Objective Vital Signs - Last 8 Hours Temp Pulse Resp BP Pulse Ox 01/16/17 08:23 16 94 01/16/17 07:41 98.1 F 95 15 110/50 96 01/16/17 06:01 123/50 01/16/17 06:00 123/50 01/16/17 03:58 99 F 99 20 89/52 94 Intake and Output 01/15/17 01/16/17 01/16/17 23:59 07:59 15:59 Intake Total 1100 / 1100 100 / 100 Output Total 1200 / 1200 575 / 575 Balance -100 / -100 -475 / -475 Intake: IV Fluids 100 / 100 100 / 100 Zosyn 3.375 GM In 100 / 100 100 / 100 Dextrose 5% (Minibag+) 100 ML 100 ML @ 25 mls/hr IVPB Q8HR [facility] Rx#: [id number] Oral 1000 / 1000 0 / 0 Output: Urine 1200 / 1200 575 / 575 Other: Weight 94.602 kg 94.4 kg Blood Glucose* 128 140 Patient Weight 01/16/17 23:59 Weight 94.4 kg - General physical appearance well developed, well nourished, no distress - Eyes normal ocular movement - ENT normal mucosa - Neck Neck exam: trachea midline - Respiratory normal expansion, normal respiratory effort, clear to auscultation - Cardiovascular Cardiovascular exam: Present: RRR, murmurs (VINH) - Abdomen Abdomen: Present: bowel sounds present, soft, tender (Midline), surgical scars ( Midline), wound (Constant intact and present in the right lower quadrant. Palpable mass adjacent to his colostomy along the midline) - Neurologic CN 2-12 grossly intact - Psychiatric oriented to time, oriented to person, oriented to place, speech is normal, memory intact - Labs 01/16/17 03:49 01/16/17 03:49 Short CBC 01/16/17 01/15/17 Range/Units 03:49 11:25 WBC 10.7 13.4 H (4.3-11.1) K/mcL Hgb 9.3 L 9.9 L (12.9-16.9) g/dL Hct 27.8 L 29.2 L (37.5-50.1) % Plt Count 197 196 (140-400) K/mcL Neutrophils # 8.3 9.8 H (1.6-8.9) K/mcL BMP 01/16/17 01/15/17 Range/Units 03:49 11:25 Sodium 138 136 (136-145) mEq/L Potassium 4.1 4.5 (3.5-4.5) mEq/L Chloride 109 105 (98-109) mEq/L Carbon Dioxide 22 22 (19-29) mEq/L BUN 23 D 43 H (8-26) mg/dL Creatinine 1.26 H 2.07 H (0.72-1.25) mg/dL Glucose 140 H 154 H (70-99) mg/dL Calcium 8.4 L 8.8 (8.6-10.8) mg/dL Cardiac Enzymes 01/15/17 Range/Units 11:25 Troponin I 0.01 (0-0.03) ng/mL Liver Function 01/15/17 Range/Units 11:25 Total Bilirubin 0.2 (0.2-1.2) mg/dL Direct Bilirubin 0.2 (0.0-0.5) mg/dL AST 9 (5-34) Units/L ALT 8 (0-55) Units/L Alkaline Phosphatase 73 (38-126) Units/L Albumin 3.0 L (3.5-5.0) g/dL Urine 01/15/17 Range/Units 14:11 Urine Color Yellow (Yellow) Urine Clarity Clear (Clear) Urine pH 5.5 (5.0-8.0) pH Units Ur Specific [place] 1.019 (1.010-1.025) Urine Protein Trace (Neg-Trace) mg/dL Urine Glucose (UA) Normal (Normal) mg/dL Vital Signs Temp Pulse Resp BP Pulse Ox 01/16/17 08:23 16 94 01/16/17 07:41 98.1 F 95 15 110/50 96 01/16/17 06:01 123/50 01/16/17 06:00 123/50 01/16/17 03:58 99 F 99 20 89/52 94 01/16/17 02:34 20 97 01/15/17 23:06 98.5 F 103 22 97/61 96 01/15/17 20:19 20 96 01/15/17 20:00 98.2 F 93 20 113/85 96 01/15/17 17:24 98.2 F 95 18 122/75 96 01/15/17 16:09 18 131/86 01/15/17 14:17 22 89 01/15/17 13:30 83 18 125/67 98 01/15/17 12:30 83 18 102/58 97 01/15/17 11:45 83 18 97/64 97 01/15/17 11:05 81 18 99/59 99 Intake and Output 01/15/17 01/16/17 01/16/17 23:59 07:59 15:59 Intake Total 1100 / 1100 100 / 100 Output Total 1200 / 1200 575 / 575 Balance -100 / -100 -475 / -475 Intake: IV Fluids 100 / 100 100 / 100 Zosyn 3.375 GM In 100 / 100 100 / 100 Dextrose 5% (Minibag+) 100 ML 100 ML @ 25 mls/hr IVPB Q8HR [facility] Rx#: [id number] Oral 1000 / 1000 0 / 0 Output: Urine 1200 / 1200 575 / 575 Other: Weight 94.602 kg 94.4 kg Blood Glucose* 128 140 Patient Weight 01/16/17 23:59 Weight 94.4 kg Consult Discharge Plan - Plan [facility]errals: [facility] [Primary Care Provider] - <Sincere López - Last Filed: 01/16/17 17:24> Date of Encounter: 01/16/17 Objective Vital Signs - Last 8 Hours Temp Pulse Resp BP Pulse Ox 01/16/17 16:02 97.7 F 97 16 131/70 99 01/16/17 15:50 18 93 01/16/17 11:50 97.7 F 88 15 122/49 97 Intake and Output 01/16/17 01/16/17 01/16/17 07:59 15:59 23:59 Intake Total 100 / 100 1300 / 1300 100 / 100 Output Total 575 / 575 200 / 200 400 / 400 Balance -475 / -475 1100 / 1100 -300 / -300 Intake: IV Fluids 100 / 100 1100 / 1100 0.9 % Sodium Chloride 1, 1000 / 1000 000 ML @ 60 mls/hr IVC . [id number] [facility] Rx#: [id number] Zosyn 3.375 GM In 100 / 100 100 / 100 Dextrose 5% (Minibag+) 100 ML 100 ML @ 25 mls/hr IVPB Q8HR [facility] Rx#: [id number] Oral 0 / 0 200 / 200 100 / 100 Output: Urine 575 / 575 200 / 200 Catheter 400 / 400 Other: Meal Lunch Percent of Meal Consumed 0% Weight 94.4 kg 94.4 kg Blood Glucose* 140 179 198 Patient Weight 01/16/17 23:59 Weight 94.4 kg - Labs 01/16/17 03:49 01/16/17 03:49 Diabetes panel 01/16/17 Range/Units 03:49 Sodium 138 (136-145) mEq/L Potassium 4.1 (3.5-4.5) mEq/L Chloride 109 (98-109) mEq/L Carbon Dioxide 22 (19-29) mEq/L BUN 23 D (8-26) mg/dL Creatinine 1.26 H (0.72-1.25) mg/dL Glucose 140 H (70-99) mg/dL Calcium 8.4 L (8.6-10.8) mg/dL Calcium panel 01/16/17 Range/Units 03:49 Calcium 8.4 L (8.6-10.8) mg/dL Pituitary panel 01/16/17 Range/Units 03:49 Sodium 138 (136-145) mEq/L Potassium 4.1 (3.5-4.5) mEq/L Chloride 109 (98-109) mEq/L Carbon Dioxide 22 (19-29) mEq/L BUN 23 D (8-26) mg/dL Creatinine 1.26 H (0.72-1.25) mg/dL Glucose 140 H (70-99) mg/dL Calcium 8.4 L (8.6-10.8) mg/dL Adrenal panel 01/16/17 Range/Units 03:49 Sodium 138 (136-145) mEq/L Potassium 4.1 (3.5-4.5) mEq/L Chloride 109 (98-109) mEq/L Carbon Dioxide 22 (19-29) mEq/L BUN 23 D (8-26) mg/dL Creatinine 1.26 H (0.72-1.25) mg/dL Glucose 140 H (70-99) mg/dL Calcium 8.4 L (8.6-10.8) mg/dL - Attending Attestation I examined this patient and my medical decision-making was reviewed with the ABLE BODIED SEAMAN/PA/Advanced Practice Nurse/Resident Physician. I agree with the documented findings, disposition and treatment plan as described except to the extent set forth below. The patient is seen and evaluated. The optimal treatment would be transferred to his primary surgical service that has managed his complex midline recurrent abdominal wall infections as well as multiple abdominal operations. Lack of adequate medical records limits my ability to accurately treat these recurrent midline infections. Recommend transfer to primary surgical service at the [facility] Sincere López MD FACS
[2017-01-16] MEDS ORDERED: Vancomycin 1,500 MG in D5% in Water 250 ML IVPB SCH (12:00)
--- NOTE | 2017-01-16 13:10 | Internal Med Progress Note ---
Date of Encounter: 01/16/17 Time of Encounter: 10:15 - Assessment and plan (1) Cellulitis Current Visit: Yes Status: Acute Assessment and plan: Patient has abdominal wall cellulitis. He is being followed by general surgery. Appreciate input and assistance. Patient is currently on intravenous antibiotics. Continue vancomycin and Zosyn. According to surgery, if he does not progress well or if he worsens, he may require surgical intervention. High risk due to risk of septic shock and worsening sepsis and possible need for surgical intervention. Qualifiers: Site of cellulitis: trunk Site of cellulitis of trunk: abdominal wall Qualified Code(s): L03.311 - Cellulitis of abdominal wall (2) Sepsis Current Visit: Yes Status: Acute Assessment and plan: Present on admission with a white count greater than 12,000 and heart rate more than 90. Currently, sepsis has resolved. Antibiotics as mentioned above. Qualifiers: Sepsis type: sepsis due to unspecified organism Qualified Code(s): A41.9 - Sepsis, unspecified organism (3) COPD (chronic obstructive pulmonary disease) Current Visit: Yes Status: Chronic Assessment and plan: Patient has been mild exacerbation of COPD. He is receiving antibiotics for his cellulitis. We will hold off on steroids as steroids can aggravate his abdominal wall infection. Depending on his progress, we will consider steroids during current hospital stay. Breathing treatments around the clock. Qualifiers: COPD type: COPD with acute exacerbation Qualified Code(s): J44.1 - Chronic obstructive pulmonary disease with (acute) exacerbation (4) Diabetes mellitus Current Visit: Yes Status: Chronic Assessment and plan: Controlled blood sugars. Continue current medications. Continues sliding scale insulin. Qualifiers: Diabetes mellitus type: type 2 Diabetes mellitus complication status: with circulatory complication Diabetes mellitus complication detail: with peripheral angiopathy without gangrene Diabetes mellitus custodial insulin use : with middle or intermediate school principal use Qualified Code(s): E11.51 - Type 2 diabetes mellitus with diabetic peripheral angiopathy without gangrene; Z79.4 - longterm (current ) use of insulin (5) Tobacco abuse Current Visit: Yes Status: Chronic Assessment and plan: Counseled regarding cessation. Patient willing to quit. Offered nicotine patch but the patient refused stating that he does not need it. (6) Congestive heart failure Current Visit: Yes Status: Chronic Assessment and plan: Mildly hypovolemic and dehydrated. Continue intravenous fluids for now. Monitor his pulmonary status carefully. Qualifiers: Congestive heart failure type: combined Congestive heart failure chronicity : chronic Qualified Code(s): I50.42 - Chronic combined systolic (congestive) and diastolic (congestive) heart failure (7) Hypomagnesemia Current Visit: Yes Status: Acute Assessment and plan: Being replaced. (8) Acute kidney failure Current Visit: Yes Status: Resolved Qualifiers: Acute renal failure type: unspecified Qualified Code(s): N17.9 - Acute kidney failure, unspecified - Subjective Interval history: Patient complaining of 5-6/10 pain in his abdomen in the middle of the abdomen that has been going on over the past week. He reports redness over his abdomen. He also reports that he continues to smoke. He reports a cough with sputum production, wheezing and shortness of breath. He states that he is trying to quit smoking. He denies any nausea or vomiting. He has a colostomy bag in place. He also reports pain in his back that is worsened with movement and relieved with rest. - Constitutional Vitals: Temp Pulse Resp BP Pulse Ox 97.7 F 88 15 122/49 97 01/16/17 11:50 01/16/17 11:50 01/16/17 11:50 01/16/17 11:50 01/16/17 11:50 General appearance: Present: A&O X 3, answers questions appropriately Exam: Gen.: Lying in bed. Moderate distress. Chest: Bilateral diffuse wheezing present. Not using accessory muscles of respiration. CVS: First and second heart sounds present. No murmurs, rubs or gallops. Abdomen: Soft, tenderness to palpation in the middle of the abdomen without any rebound tenderness, guarding or rigidity; nondistended. Bowel sounds present. Colostomy bag in place. Skin: No decubitus ulcers appreciated. Erythema over the umbilical region and induration over the abdominal wall. Internal Medicine: Result - Labs CBC & Chem 7: 01/16/17 03:49 01/16/17 03:49 Labs: Short CBC 01/16/17 Range/Units 03:49 WBC 10.7 (4.3-11.1) K/mcL Hgb 9.3 L (12.9-16.9) g/dL Hct 27.8 L (37.5-50.1) % Plt Count 197 (140-400) K/mcL Neutrophils # 8.3 (1.6-8.9) K/mcL BMP 01/16/17 03:49 Sodium 138 Potassium 4.1 Chloride 109 Carbon Dioxide 22 BUN 23 D Creatinine 1.26 H Glucose 140 H Calcium 8.4 L - ABG Interpretation ABG results: PT/INR, D-dimer PT 13.9 Seconds (9.4-12.1) H 01/15/17 11:25 Consult Discharge Plan - Plan [facility]errals: [facility] [Primary Care Provider] -
[2017-01-16] MEDS: *HR* OxyCODONE ER (12 HR) 20 MG TABLET PO SCH (15:10)
[2017-01-16] MEDS: Ipratropium/Albuterol Neb 3 ML IH SCH ×3 (15:48→20:12)
--- NOTE | 2017-01-16 16:51 | Electrocardiograph Report ---
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
[2017-01-17] MEDS ORDERED: Temazepam 15 MG CAPSULE PO ONE (00:09)
[2017-01-17] MEDS: Piperacillin/Tazobactam 3.375 GM in D5% in Water (Mini-Bag+) 100 ML IVPB SCH ×3 (00:10→15:10)
[2017-01-17] MEDS: *HR* OxyCODONE ER (12 HR) 20 MG TABLET PO SCH ×3 (00:11→14:50)
[2017-01-17] MEDS: Ipratropium/Albuterol Neb 3 ML IH SCH ×7 (00:16→23:56)
[2017-01-17] MEDS: *HR* OxyCODONE Immed Rel 5 MG TABLET PO PRN ×2 (03:52→11:11)
[2017-01-17 04:40] LABS: Basophils % 0.4 %; Eosinophils # 0.6 K/mcL (0.0-0.6); Eosinophils % 5.2 %; Hematocrit 28.1 % (37.5-50.1); Hemoglobin 9.7 g/dL (12.9-16.9); Immature Granulocytes % 0.8 % (0-4); Lymphocytes # 1.6 K/mcL (0.6-4.6); Lymphocytes % 14.2 %; Mean Corpuscular HGB Conc 34.5 g/dL (31.6-35.5); Mean Corpuscular Hemoglobin 32.6 pg (28.0-33.3); Mean Corpuscular Volume 94.3 fL (83.0-100.0); Mean Platelet Volume 9.6 fL (9.4-12.4); Monocytes # 0.8 K/mcL (0.0-1.3); Monocytes % 6.9 %; Platelet Count 207 K/mcL (140-400); Red Blood Count 2.98 M/mcL (4.19-5.50); Red Cell Distribution Width 12.4 % (11.5-14.5); Segmented Neutrophils % 72.5 %
[2017-01-17 05:03] LABS: BUN/Creatinine Ratio 9 (6-26); Calcium 8.5 mg/dL (8.6-10.8); Carbon Dioxide 23 mEq/L (19-29); Chloride 106 mEq/L (98-109); Glucose 174 mg/dL (70-99); Osmolality,Calculated 285 (280-300); Potassium 4.2 mEq/L (3.5-4.5); Sodium 136 mEq/L (136-145); eGFR For African Americans > 60 (> 60); eGFR For Non-African Americans > 60 (> 60)
[2017-01-17 05:04] LABS: Blood Urea Nitrogen 9 mg/dL (8-26)
[2017-01-17] MEDS: *HR* Heparin 5,000 UNIT/ML VIAL SQ SCH ×2 (05:55→17:12)
[2017-01-17] MEDS: 0.9 % Sodium Chloride 1,000 ML IVC SCH (07:21)
[2017-01-17] MEDS: Insulin LISPRO 300 UNITS/3 ML VIAL SQ SCH ×4 (07:54→20:45)
[2017-01-17] MEDS: Magnesium Oxide 400 MG TABLET PO SCH ×3 (07:55→20:43)
[2017-01-17] MEDS ORDERED: MOM Conc 10 ML UD.LIQ PO PRN (08:11)
[2017-01-17] MEDS: Budesonide/Formoterol 160/4.5 MDI IH SCH ×2 (08:59→21:14)
[2017-01-17] MEDS: Sennosides/Docusate Sodium TABLET PO SCH ×2 (09:28→18:05)
--- NOTE | 2017-01-17 10:03 | Internal Med Progress Note ---
Date of Encounter: 01/17/17 Time of Encounter: 08:45 - Assessment and plan (1) Cellulitis Current Visit: Yes Status: Acute Assessment and plan: This is improving. General surgery on board. Continue vancomycin and Zosyn. Pain control. High risk due to risk of septic shock and worsening sepsis and possible need for surgical intervention. Qualifiers: Site of cellulitis: trunk Site of cellulitis of trunk: abdominal wall Qualified Code(s): L03.311 - Cellulitis of abdominal wall (2) Sepsis Current Visit: Yes Status: Acute Assessment and plan: Resolved sepsis Qualifiers: Sepsis type: sepsis due to unspecified organism Qualified Code(s): A41.9 - Sepsis, unspecified organism (3) COPD (chronic obstructive pulmonary disease) Current Visit: Yes Status: Chronic Assessment and plan: Patient does not have any wheezing today. Continue breathing treatments around the clock for 1 more day. Then, we will switch to as needed. Continue antibiotics for cellulitis. Qualifiers: COPD type: COPD with acute exacerbation Qualified Code(s): J44.1 - Chronic obstructive pulmonary disease with (acute) exacerbation (4) Diabetes mellitus Current Visit: Yes Status: Chronic Assessment and plan: Controlled blood sugars. Continue current medications. Continues sliding scale insulin. Qualifiers: Diabetes mellitus type: type 2 Diabetes mellitus complication status: with circulatory complication Diabetes mellitus complication detail: with peripheral angiopathy without gangrene Diabetes mellitus detention insulin use : with adjunct faculty for medical terminology use Qualified Code(s): E11.51 - Type 2 diabetes mellitus with diabetic peripheral angiopathy without gangrene; Z79.4 - alf (current ) use of insulin (5) Tobacco abuse Current Visit: Yes Status: Chronic Assessment and plan: Counseled regarding the need for smoking cessation. (6) Congestive heart failure Current Visit: Yes Status: Chronic Assessment and plan: Discontinue intravenous fluids as the patient appears euvolemic today. Qualifiers: Congestive heart failure type: combined Congestive heart failure chronicity : chronic Qualified Code(s): I50.42 - Chronic combined systolic (congestive) and diastolic (congestive) heart failure (7) Hypomagnesemia Current Visit: Yes Status: Resolved (8) Acute kidney failure Current Visit: Yes Status: Resolved Assessment and plan: Resolved acute kidney injury. Intravenous fluids discontinued. Continue to monitor renal function with the patient receiving vancomycin and Zosyn. Qualifiers: Acute renal failure type: unspecified Qualified Code(s): N17.9 - Acute kidney failure, unspecified - Subjective Interval history: Patient states that his pain is much better controlled with resuming his home dose of pain medications and Dilaudid when necessary. He states that his pain is usually 3/10 when he is at rest. However, when he sits or starts walking, his pain shoots up to 7-8/10 in intensity in the middle of the abdomen without any radiation. He reports that the redness on his abdomen is better. - Constitutional Vitals: Temp Pulse Resp BP Pulse Ox 98.5 F 88 18 128/54 95 01/17/17 07:13 01/17/17 09:01 01/17/17 09:01 01/17/17 07:13 01/17/17 09:02 General appearance: Present: A&O X 3, answers questions appropriately Exam: Gen.: Lying in bed. Mild to moderate distress. Chest: Clear to auscultation bilaterally. No adventitious sounds present. CVS: First and second heart sounds present. No murmurs, rubs or gallops. Abdomen: Soft, tender to palpation in the umbilical and hypogastric regions without any rebound tenderness, guarding or rigidity; nondistended. Bowel sounds present. No hepatosplenomegaly. Skin: Erythema and induration over the umbilical and hypogastric regions. However, this is better than yesterday. Internal Medicine: Result - Labs CBC & Chem 7: 01/17/17 04:15 01/17/17 04:15 Labs: Short CBC 01/17/17 Range/Units 04:15 WBC 11.1 (4.3-11.1) K/mcL Hgb 9.7 L (12.9-16.9) g/dL Hct 28.1 L (37.5-50.1) % Plt Count 207 (140-400) K/mcL Neutrophils # 8.0 (1.6-8.9) K/mcL BMP 01/17/17 04:15 Sodium 136 Potassium 4.2 Chloride 106 Carbon Dioxide 23 BUN 9 D Creatinine 1.05 Glucose 174 H Calcium 8.5 L - ABG Interpretation ABG results: PT/INR, D-dimer PT 13.9 Seconds (9.4-12.1) H 01/15/17 11:25 Consult Discharge Plan - Plan [facility]errals: [facility] [Primary Care Provider] -
[2017-01-17] MEDS: Vancomycin 1,750 MG in D5% in Water 500 ML IVPB SCH (12:41)
[2017-01-17] MEDS: *HR* HYDROmorphone 2 MG/ML SYRINGE IVP PRN ×2 (17:18→22:27)
[2017-01-18] MEDS: Piperacillin/Tazobactam 3.375 GM in D5% in Water (Mini-Bag+) 100 ML IVPB SCH ×4 (00:46→23:18)
[2017-01-18] MEDS: *HR* OxyCODONE ER (12 HR) 20 MG TABLET PO SCH ×4 (00:46→23:18)
[2017-01-18] MEDS: Ipratropium/Albuterol Neb 3 ML IH SCH ×5 (04:10→19:45)
[2017-01-18] MEDS: *HR* Heparin 5,000 UNIT/ML VIAL SQ SCH ×2 (06:24→17:39)
[2017-01-18 06:46] LABS: Basophils % 0.4 %; Eosinophils # 0.7 K/mcL (0.0-0.6); Eosinophils % 6.8 %; Hematocrit 27.9 % (37.5-50.1); Hemoglobin 9.6 g/dL (12.9-16.9); Immature Granulocytes % 0.6 % (0-4); Lymphocytes # 1.4 K/mcL (0.6-4.6); Lymphocytes % 13.9 %; Mean Corpuscular HGB Conc 34.4 g/dL (31.6-35.5); Mean Corpuscular Hemoglobin 31.9 pg (28.0-33.3); Mean Corpuscular Volume 92.7 fL (83.0-100.0); Mean Platelet Volume 9.4 fL (9.4-12.4); Monocytes # 0.8 K/mcL (0.0-1.3); Monocytes % 7.7 %; Neutrophils # 7.2 K/mcL (1.6-8.9); Platelet Count 217 K/mcL (140-400); Red Blood Count 3.01 M/mcL (4.19-5.50); Red Cell Distribution Width 12.2 % (11.5-14.5); Segmented Neutrophils % 70.6 %
[2017-01-18 06:52] LABS: BUN/Creatinine Ratio 7 (6-26); Blood Urea Nitrogen 8 mg/dL (8-26); Calcium 8.6 mg/dL (8.6-10.8); Carbon Dioxide 28 mEq/L (19-29); Chloride 102 mEq/L (98-109); Glucose 222 mg/dL (70-99); Osmolality,Calculated 287 (280-300); Sodium 136 mEq/L (136-145); eGFR For African Americans > 60 (> 60); eGFR For Non-African Americans > 60 (> 60)
[2017-01-18] MEDS: Budesonide/Formoterol 160/4.5 MDI IH SCH ×2 (07:39→19:44)
[2017-01-18] MEDS: Insulin LISPRO 300 UNITS/3 ML VIAL SQ SCH ×4 (07:53→20:54)
[2017-01-18] MEDS: Sennosides/Docusate Sodium TABLET PO SCH ×2 (07:57→20:51)
[2017-01-18] MEDS: *HR* OxyCODONE Immed Rel 5 MG TABLET PO PRN ×2 (10:01→17:39)
[2017-01-18] MEDS: Vancomycin 1,750 MG in D5% in Water 500 ML IVPB SCH (12:14)
--- NOTE | 2017-01-18 14:32 | Internal Med Progress Note ---
Date of Encounter: 01/18/17 Time of Encounter: 12:45 - Assessment and plan (1) Cellulitis Current Visit: Yes Status: Acute Assessment and plan: No further improvement and the patient is not getting worse either. Continue intravenous vancomycin and Zosyn. We will follow further surgical recommendations as the patient is not improving any further. High risk due to risk of septic shock and worsening sepsis and possible need for surgical intervention. Qualifiers: Site of cellulitis: trunk Site of cellulitis of trunk: abdominal wall Qualified Code(s): L03.311 - Cellulitis of abdominal wall (2) Sepsis Current Visit: Yes Status: Resolved Assessment and plan: Resolved sepsis Qualifiers: Sepsis type: sepsis due to unspecified organism Qualified Code(s): A41.9 - Sepsis, unspecified organism (3) COPD (chronic obstructive pulmonary disease) Current Visit: Yes Status: Chronic Assessment and plan: Exacerbation has resolved. Continue home breathing treatments. Qualifiers: COPD type: unspecified COPD Qualified Code(s): J44.9 - Chronic obstructive pulmonary disease, unspecified (4) Diabetes mellitus Current Visit: Yes Status: Chronic Assessment and plan: Controlled blood sugars. Continue current medications. Continues sliding scale insulin. Qualifiers: Diabetes mellitus type: type 2 Diabetes mellitus complication status: with circulatory complication Diabetes mellitus complication detail: with peripheral angiopathy without gangrene Diabetes mellitus group home insulin use : with group home use Qualified Code(s): E11.51 - Type 2 diabetes mellitus with diabetic peripheral angiopathy without gangrene; Z79.4 - snf (current ) use of insulin (5) Tobacco abuse Current Visit: Yes Status: Chronic Assessment and plan: Counseled regarding the need for smoking cessation. (6) Congestive heart failure Current Visit: Yes Status: Chronic Assessment and plan: Stable and euvolemic. Qualifiers: Congestive heart failure type: combined Congestive heart failure chronicity : chronic Qualified Code(s): I50.42 - Chronic combined systolic (congestive) and diastolic (congestive) heart failure - Subjective Interval history: Patient states that his pain in the belly is well controlled. He states that the redness is not getting worse but it is not getting good either. He states that the pain gets worse when he sits in a chair as he is unable to sit for long periods of time. He denies any nausea or vomiting. He denies any chills. - Constitutional Vitals: Temp Pulse Resp BP Pulse Ox 98.7 F 97 16 117/78 95 01/18/17 07:06 01/18/17 07:06 01/18/17 07:39 01/18/17 07:06 01/18/17 09:00 General appearance: Present: A&O X 3, answers questions appropriately Exam: Gen.: Lying in bed. No acute distress. Chest: Clear to auscultation bilaterally. No adventitious sounds present. CVS: First and second heart sounds present. No murmurs, rubs or gallops. Abdomen: Soft, tenderness to palpation in the middle of the abdomen and the umbilical region, nondistended. Bowel sounds present. Skin: No decubitus ulcers appreciated. Erythema and induration over the umbilical region. Tender to palpation. Internal Medicine: Result - Labs CBC & Chem 7: 01/18/17 06:25 01/18/17 06:25 Labs: Short CBC 01/18/17 Range/Units 06:25 WBC 10.2 (4.3-11.1) K/mcL Hgb 9.6 L (12.9-16.9) g/dL Hct 27.9 L (37.5-50.1) % Plt Count 217 (140-400) K/mcL Neutrophils # 7.2 (1.6-8.9) K/mcL BMP 01/18/17 06:25 Sodium 136 Potassium 4.0 Chloride 102 Carbon Dioxide 28 BUN 8 Creatinine 1.09 Glucose 222 H Calcium 8.6 - ABG Interpretation ABG results: PT/INR, D-dimer PT 13.9 Seconds (9.4-12.1) H 01/15/17 11:25 Consult Discharge Plan - Plan [facility]errals: [facility] [Primary Care Provider] -
[2017-01-18] MEDS: *HR* HYDROmorphone 2 MG/ML SYRINGE IVP PRN (15:57)
[2017-01-19] MEDS: Ipratropium/Albuterol Neb 3 ML IH SCH ×4 (00:36→11:06)
[2017-01-19] MEDS: *HR* OxyCODONE Immed Rel 5 MG TABLET PO PRN (04:27)
[2017-01-19] MEDS: *HR* Heparin 5,000 UNIT/ML VIAL SQ SCH ×2 (06:22→16:28)
[2017-01-19] MEDS: Budesonide/Formoterol 160/4.5 MDI IH SCH ×2 (07:58→20:50)
[2017-01-19] MEDS: Sennosides/Docusate Sodium TABLET PO SCH ×3 (09:40→20:53)
[2017-01-19] MEDS: Insulin LISPRO 300 UNITS/3 ML VIAL SQ SCH ×4 (09:40→20:54)
[2017-01-19] MEDS: *HR* OxyCODONE ER (12 HR) 20 MG TABLET PO SCH ×2 (09:41→16:29)
[2017-01-19] MEDS: Piperacillin/Tazobactam 3.375 GM in D5% in Water (Mini-Bag+) 100 ML IVPB SCH ×2 (10:00→19:30)
--- NOTE | 2017-01-19 12:38 | Internal Med Progress Note ---
Date of Encounter: 01/19/17 Time of Encounter: 12:15 - Assessment and plan (1) Cellulitis Current Visit: Yes Status: Acute Assessment and plan: Minimal improvement compared to yesterday. Continue intravenous vancomycin and Zosyn. Case discussed with surgery who stated that they had signed off on Thursday. I have requested them to reevaluate the patient today. We will await further recommendations from surgery. High risk due to risk of septic shock and worsening sepsis and possible need for surgical intervention. Qualifiers: Site of cellulitis: trunk Site of cellulitis of trunk: abdominal wall Qualified Code(s): L03.311 - Cellulitis of abdominal wall (2) Sepsis Current Visit: Yes Status: Resolved Assessment and plan: Resolved sepsis Qualifiers: Sepsis type: sepsis due to unspecified organism Qualified Code(s): A41.9 - Sepsis, unspecified organism (3) COPD (chronic obstructive pulmonary disease) Current Visit: Yes Status: Chronic Assessment and plan: Exacerbation has resolved. He has very rare intermittent expiratory wheezing. We will change the breathing treatments to when necessary. Continue home breathing treatments. Qualifiers: COPD type: unspecified COPD Qualified Code(s): J44.9 - Chronic obstructive pulmonary disease, unspecified (4) Diabetes mellitus Current Visit: Yes Status: Chronic Assessment and plan: Controlled blood sugars. Continue current medications. Continues sliding scale insulin. Qualifiers: Diabetes mellitus type: type 2 Diabetes mellitus complication status: with circulatory complication Diabetes mellitus complication detail: with peripheral angiopathy without gangrene Diabetes mellitus terminal manager insulin use : with terminal manager use Qualified Code(s): E11.51 - Type 2 diabetes mellitus with diabetic peripheral angiopathy without gangrene; Z79.4 - [facility] (current ) use of insulin (5) Tobacco abuse Current Visit: Yes Status: Chronic Assessment and plan: Counseled regarding the need for smoking cessation. (6) Congestive heart failure Current Visit: Yes Status: Chronic Assessment and plan: Stable and euvolemic. Qualifiers: Congestive heart failure type: combined Congestive heart failure chronicity : chronic Qualified Code(s): I50.42 - Chronic combined systolic (congestive) and diastolic (congestive) heart failure - Subjective Interval history: Patient states that the pain on his abdominal wall is little better. However, he states that the redness is still the same. He reports new onset swelling in the region of the redness over his abdominal wall. States that he ate his breakfast but is not feeling hungry now. He has his lunch sitting in front of him right now. - Constitutional Vitals: Temp Pulse Resp BP Pulse Ox 98.3 F 102 18 116/66 95 01/19/17 11:46 01/19/17 11:46 01/19/17 11:46 01/19/17 11:46 01/19/17 11:46 General appearance: Present: A&O X 3, answers questions appropriately Exam: Gen.: Lying in bed. Moderate distress. Chest: Clear to auscultation bilaterally. No adventitious sounds present. CVS: First and second heart sounds present. No murmurs, rubs or gallops. Abdomen: Soft, tenderness to palpation in the umbilical region, nondistended. Bowel sounds present. Skin: No decubitus ulcers appreciated. Umbilical region of the abdominal wall demonstrates erythema and induration and tenderness to palpation. Internal Medicine: Result - Labs CBC & Chem 7: 01/18/17 06:25 01/18/17 06:25 - ABG Interpretation ABG results: PT/INR, D-dimer PT 13.9 Seconds (9.4-12.1) H 01/15/17 11:25 Consult Discharge Plan - Plan [facility]errals: [facility] [Primary Care Provider[facility] -
[2017-01-19] MEDS: Vancomycin 1,750 MG in D5% in Water 500 ML IVPB SCH (16:28)
--- NOTE | 2017-01-19 17:06 | General Surgery Progress Note ---
Date of Encounter: 01/19/17 Time of Encounter: 16:20 - Assessment and Plan (1) Abdominal wall mass Current Visit: Yes Status: Acute The patient's abdominal wall mass appears to be infection that is recurrent on multiple episodes. Given the patient's history of believe that he has no infected mesh. [facility]. We will plan local incision and drainage to see if with can further improve the amount of cellulitis that he has. This is done in anticipation of abdominal wall debridement of any infected mesh and reclosure of the [place] fascia. He understands this approach and wishes to proceed. Subjective Narrative: The patient requests reevaluation. He does not want to go to the [place] for any more of his care. I will long discussion with him. He lives alone in [place] and feels that he is losing his memory and became quite tearful when discussing his care options. He is asked me to [facility] the [facility]. I made sure that the patient realized that it is better for him to receive his care where he has received multiple complex surgeries. The patient has had at least 4 infections in 4 years from his midline. His colostomy was at least 10 years after his midline hernia repair. 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 I also told him that it would be better handled at a facility where they would have access to the type of mesh and extent of the mesh. The patient is adamant that he wants to maintain his care here. Based on this discussion I agreed to provide treatment directed at his midline abscesses. 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 He has 2 areas of fluctuance. The areas of cellulitis have markedly decreased. I think it is reasonable at this point to proceed with incision and drainage of the 2 small infected areas and treat these with iodoform. I would like to see if we can get further improvement in the degree of cellulitis prior to surgical exploration with probable mesh removal. I shared this information with the patient and he was relieved that we would be caring for him close to his home. Objective Vital Signs - Last 8 Hours Temp Pulse Resp BP Pulse Ox 01/19/17 15:59 98.5 F 96 18 130/82 97 01/19/17 11:46 98.3 F 102 18 116/66 95 01/19/17 11:06 18 97 Intake and Output 01/19/17 01/19/17 01/19/17 07:59 15:59 23:59 Intake Total 0 / 0 340 / 340 Output Total 450 / 450 1200 / 1200 Balance -450 / -450 -860 / -860 Intake: IV Fluids 100 / 100 Zosyn 3.375 GM In 100 / 100 Dextrose 5% (Minibag+) 100 ML 100 ML @ 25 mls/hr IVPB Q8HR [facility] Rx#: [id number] Oral 0 / 0 240 / 240 Output: Stool 200 / 200 Catheter 450 / 450 1000 / 1000 Other: Meal Breakfast Percent of Meal Consumed 90% Stool Size Moderate Stool Consistency loose Stool Characteristics Normal for Patient Stool Color Brown Weight 93.5 kg Blood Glucose* 202 276 Patient Weight 01/19/17 23:59 Weight 93.5 kg - General physical appearance other (The patient is very tearful and anxious at the prospect of returning to the [place].) - Respiratory normal expansion, normal respiratory effort, clear to percussion, clear to auscultation - Cardiovascular Cardiovascular exam: Present: RRR, no murmurs/rubs/gallops - Abdomen Abdomen: Present: bowel sounds present, soft, non tender (Functioning ostomy in the right lower quadrant. 2 fluctuant areas one on the upper midline and one on the lower midline. The upper midline is larger. I think I can feel the upper extent of the piece of mesh in the midline) - Neurologic normal coordination, normal sensation - Labs 01/18/17 06:25 01/18/17 06:25 - Imaging CT scan - abdomen: image reviewed (I personally reviewed the CAT scan of the abdomen again. This could represent infected mesh small bowel does not appear to be involved. This does not appear to be fistula.) Consult Discharge Plan - Plan [facility]errals: [facility] [Primary Care Provider] -
[2017-01-19] MEDS: Ipratropium/Albuterol Neb 3 ML IH PRN (20:50)
[2017-01-19] MEDS: Insulin NPH 100 UNIT/ML (x5UNIT) SQ SCH (20:54)
[2017-01-20] MEDS: Piperacillin/Tazobactam 3.375 GM in D5% in Water (Mini-Bag+) 100 ML IVPB SCH ×3 (01:23→19:17)
[2017-01-20] MEDS: *HR* OxyCODONE ER (12 HR) 20 MG TABLET PO SCH ×3 (01:24→19:22)
[2017-01-20] MEDS: *HR* Heparin 5,000 UNIT/ML VIAL SQ SCH ×2 (05:46→19:20)
[2017-01-20] MEDS: *HR* OxyCODONE Immed Rel 5 MG TABLET PO PRN ×2 (05:46→15:58)
[2017-01-20] MEDS: Budesonide/Formoterol 160/4.5 MDI IH SCH ×2 (07:43→19:46)
[2017-01-20] MEDS: Ipratropium/Albuterol Neb 3 ML IH PRN (07:43)
[2017-01-20] MEDS ORDERED: methylPREDNISolone 125 MG/2 ML VIAL IVP STA (07:49)
[2017-01-20] MEDS ORDERED: methylPREDNISolone 125 MG/2 ML VIAL ONE (07:52)
[2017-01-20] MEDS: Insulin LISPRO 300 UNITS/3 ML VIAL SQ SCH ×4 (08:17→22:36)
[2017-01-20] MEDS: Insulin NPH 100 UNIT/ML (x5UNIT) SQ SCH ×2 (08:18→22:37)
[2017-01-20 08:32] LABS: ABG Base Excess 1.3 mEq/L (-2.0 to 3.0); ABG HCO3 25.9 mEQ/L (21-27); ABG Oxygen Saturation 91 % (95-98); ABG PCO2 40 mmHg (35-45); ABG PH 7.42 pH Units (7.32-7.45); ABG PO2 59 mmHg (85-104); ABG TCO2 27.1 mEq/L (20-26)
[2017-01-20 08:33] LABS: Blood Gas FiO2 35 %
[2017-01-20] MEDS ORDERED: Lidocaine -MPF 1% 2 ML VIAL INFILT ONE (08:34)
[2017-01-20 09:23] LABS: Basophils # 0.1 K/mcL (0.0-0.2); Basophils % 0.5 %; Eosinophils # 0.7 K/mcL (0.0-0.6); Eosinophils % 7.6 %; Hematocrit 30.1 % (37.5-50.1); Hemoglobin 10.4 g/dL (12.9-16.9); Immature Granulocytes % 0.9 % (0-4); Lymphocytes # 0.9 K/mcL (0.6-4.6); Lymphocytes % 8.8 %; Mean Corpuscular HGB Conc 34.6 g/dL (31.6-35.5); Mean Corpuscular Hemoglobin 32.3 pg (28.0-33.3); Mean Corpuscular Volume 93.5 fL (83.0-100.0); Mean Platelet Volume 9.5 fL (9.4-12.4); Monocytes # 0.5 K/mcL (0.0-1.3); Monocytes % 4.6 %; Neutrophils # 7.6 K/mcL (1.6-8.9); Platelet Count 240 K/mcL (140-400); Red Blood Count 3.22 M/mcL (4.19-5.50); Red Cell Distribution Width 12.2 % (11.5-14.5); Segmented Neutrophils % 77.6 %
[2017-01-20] MEDS ORDERED: 0.9 % Sodium Chloride 500 ML ONE (09:25)
[2017-01-20 10:00] LABS: Potassium 4.1 mEq/L (3.5-4.5)
[2017-01-20] MEDS ORDERED: Lidocaine 1% 20 ML MDV INFILT ONE (10:00)
[2017-01-20 10:01] LABS: Calcium 9.3 mg/dL (8.6-10.8); Magnesium 1.2 mg/dL (1.6-2.6); Phosphorous 3.2 mg/dL (2.3-4.7)
--- NOTE | 2017-01-20 10:27 | General Surgery Procedure Note ---
Date of procedure: 01/20/17 Pre-op diagnosis: Abdominal wall abscess X 2 Post-op diagnosis: same Procedure: After informed consent was obtained and timeout performed, the patient was placed in the supine position. His midline abdomen was prepped with chlorhexidine. After prepping the abdomen, the 2 affected areas were localized with 1% lidocaine. A total of 20 mL's of lidocaine was used. After achieving appropriate localization, a 2 cm incision was made over the most fluctuant areas of the affected areas. There was immediate return of a small amount of purulent and blood-tinged drainage. After decompressing the cavity, cultures were obtained for Gram stain, aerobic culture and anaerobic culture. The abscess cavity was flushed with sterile saline. After flushing the cavity, I packed with a quarter inch iodoform gauze covered with dry dressing and taped to secure. The patient tolerated this well and there are medications noted. Complications: none Anesthesia: local (20ml of 1% lidocaine) Surgeon: Mary Alice Schwartz Platen Press Operator Apprentice: Kaitlynn Gallardo Estimated blood loss (cc): 1 Pathology: other (gram stain, aerobic culture, anaerobic culture) Condition: stable Disposition: no change
--- NOTE | 2017-01-20 10:33 | General Surgery Progress Note ---
<Mary Alice Schwartz - Last Filed: 01/20/17 10:36> Date of Encounter: 01/20/17 Time of Encounter: 10:31 - Assessment and Plan (1) Abdominal wall mass Current Visit: Yes Status: Acute The patient's abdominal wall mass appears to be infection that is recurrent on multiple episodes. 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 [facility]. I&D was complete in anticipation of abdominal wall debridement of an infected mesh and reclosure of the [place] fascia. He understands this approach and wishes to proceed. Incision and Drainage complete Cultures obtained- await results Daily wound care Supportive care and pain control Follow-up with wound care 02/02/[address] López Will need home health at discharge for daily packing Subjective Patient reports: no new complaints, feels better, still having pain, pain is less, tolerating a regular diet, voiding w/o difficulty, flatus, bowel movement (via colostomy), shortness of breath (improved), afebrile, other (Events noted from this morning- patient experienced respiratory distress; he has recovered after breathing treatment and bipap) Objective Vital Signs - Last 8 Hours Temp Pulse Resp BP Pulse Ox 01/20/17 07:18 97.9 F 90 18 132/85 96 Intake and Output 01/19/17 01/20/17 01/20/17 23:59 07:59 15:59 Intake Total 700 / 700 100 / 100 0 / 0 Output Total 900 / 900 1900 / 1900 Balance -200 / -200 -1800 / -1800 0 / 0 Intake: IV Fluids 100 / 100 100 / 100 Zosyn 3.375 GM In 100 / 100 100 / 100 Dextrose 5% (Minibag+) 100 ML 100 ML @ 25 mls/hr IVPB Q8HR [facility] Rx#: [id number] Oral 600 / 600 0 / 0 0 / 0 Output: Stool 300 / 300 Catheter 900 / 900 1600 / 1600 Other: Meal Dinner Breakfast Percent of Meal Consumed 90% 0% Stool Color Brown Weight 93.2 kg Blood Glucose* 250 233 Patient Weight 01/20/17 23:59 Weight 93.2 kg - General physical appearance well developed, well nourished, no distress - Eyes normal ocular movement - ENT normal mucosa, atraumatic, normocephalic - Neck Neck exam: trachea midline - Respiratory clear to auscultation, other (diminished bibasilar bases) - Cardiovascular Cardiovascular exam: Present: RRR - Abdomen Abdomen: Present: bowel sounds present, soft, tender (minimal, midline), wound ( erythema and induration along midline incision slowly improving; Colostomy pink and moist with good function) - Neurologic CN 2-12 grossly intact - Psychiatric oriented to time, oriented to person, oriented to place, speech is normal, memory intact - Labs 01/20/17 09:08 01/20/17 09:08 Diabetes panel 01/20/17 Range/Units 09:08 Sodium 139 (136-145) mEq/L Potassium 4.1 (3.5-4.5) mEq/L Chloride 103 (98-109) mEq/L Carbon Dioxide 29 (19-29) mEq/L BUN 11 (8-26) mg/dL Creatinine 1.79 H D (0.72-1.25) mg/dL Glucose 295 H (70-99) mg/dL Calcium 9.3 (8.6-10.8) mg/dL Calcium panel 01/20/17 Range/Units 09:08 Calcium 9.3 (8.6-10.8) mg/dL Phosphorus 3.2 (2.3-4.7) mg/dL Pituitary panel 01/20/17 Range/Units 09:08 Sodium 139 (136-145) mEq/L Potassium 4.1 (3.5-4.5) mEq/L Chloride 103 (98-109) mEq/L Carbon Dioxide 29 (19-29) mEq/L BUN 11 (8-26) mg/dL Creatinine 1.79 H D (0.72-1.25) mg/dL Glucose 295 H (70-99) mg/dL Calcium 9.3 (8.6-10.8) mg/dL Adrenal panel 01/20/17 Range/Units 09:08 Sodium 139 (136-145) mEq/L Potassium 4.1 (3.5-4.5) mEq/L Chloride 103 (98-109) mEq/L Carbon Dioxide 29 (19-29) mEq/L BUN 11 (8-26) mg/dL Creatinine 1.79 H D (0.72-1.25) mg/dL Glucose 295 H (70-99) mg/dL Calcium 9.3 (8.6-10.8) mg/dL Consult Discharge Plan - Plan Additional Instructions: Wound care- Cleanse midline with soap and water in the shower, pack open areas X 2 with 1/4 inch plain gauze, cover with dry 4X4 gauze and tape to secure daily. [facility]errals: [facility] [Primary Care Provider] - Sincere López MD [Partnered Physician] - 02/02/17 9:00 am ([facility]- ) <Sincere López - Last Filed: 01/21/17 07:01> Date of Encounter: 01/21/17 - Assessment and Plan (1) Abdominal wall mass Current Visit: Yes Status: Acute Objective Vital Signs - Last 8 Hours Temp Pulse Resp BP Pulse Ox 01/21/17 04:57 97.7 F 89 18 118/70 93 01/21/17 04:28 20 98 01/20/17 23:34 18 96 Intake and Output 01/20/17 01/20/17 01/21/17 15:59 23:59 07:59 Intake Total 100 / 100 0 / 0 Output Total 500 / 500 650 / 650 Balance 100 / 100 -500 / -500 -650 / -650 Intake: IV Fluids 100 / 100 Zosyn 3.375 GM In 100 / 100 Dextrose 5% (Minibag+) 100 ML 100 ML @ 25 mls/hr IVPB Q8HR [facility] Rx#: [id number] Oral 0 / 0 0 / 0 Output: Stool 150 / 150 Catheter 500 / 500 500 / 500 Other: Meal Breakfast Percent of Meal Consumed 0% Weight 92.5 kg Blood Glucose* 302 319 Patient Weight 01/21/17 23:59 Weight 92.5 kg - Labs 01/21/17 05:12 01/21/17 05:12 Diabetes panel 01/20/17 01/21/17 Range/Units 09:08 05:12 Sodium 139 136 (136-145) mEq/L Potassium 4.1 4.0 (3.5-4.5) mEq/L Chloride 103 101 (98-109) mEq/L Carbon Dioxide 29 29 (19-29) mEq/L BUN 11 16 (8-26) mg/dL Creatinine 1.79 H D 2.02 H (0.72-1.25) mg/dL Glucose 295 H 229 H (70-99) mg/dL Calcium 9.3 9.1 (8.6-10.8) mg/dL Calcium panel 01/20/17 01/21/17 Range/Units 09:08 05:12 Calcium 9.3 9.1 (8.6-10.8) mg/dL Phosphorus 3.2 3.1 (2.3-4.7) mg/dL Pituitary panel 01/20/17 01/21/17 Range/Units 09:08 05:12 Sodium 139 136 (136-145) mEq/L Potassium 4.1 4.0 (3.5-4.5) mEq/L Chloride 103 101 (98-109) mEq/L Carbon Dioxide 29 29 (19-29) mEq/L BUN 11 16 (8-26) mg/dL Creatinine 1.79 H D 2.02 H (0.72-1.25) mg/dL Glucose 295 H 229 H (70-99) mg/dL Calcium 9.3 9.1 (8.6-10.8) mg/dL Adrenal panel 01/20/17 01/21/17 Range/Units 09:08 05:12 Sodium 139 136 (136-145) mEq/L Potassium 4.1 4.0 (3.5-4.5) mEq/L Chloride 103 101 (98-109) mEq/L Carbon Dioxide 29 29 (19-29) mEq/L BUN 11 16 (8-26) mg/dL Creatinine 1.79 H D 2.02 H (0.72-1.25) mg/dL Glucose 295 H 229 H (70-99) mg/dL Calcium 9.3 9.1 (8.6-10.8) mg/dL - Attending Attestation I have personally performed a face to face evaluation on this patient. I have reviewed and agree with the care plan. History and Exam by me shows: The patient is seen and evaluated on morning rounds. I extended discussion with the patient. Certainly would prefer that she receive his care. His had his other complex surgical procedures. The patient strongly wants to stay close to home. He states that he is struggling with his memory and feels much more comfortable with no travel. There are 2 areas of inflammation in the midline. These will be incised and drained or morning. We will try to further control the infection. Clinically this looks like infected mesh for foreign material. Incision and drainage tomorrow morning with follow-up antibiotics. I will see him as an outpatient plan exploration in the midline removal of infected foreign material Sincere López MD FACS
[2017-01-20] MEDS: Ipratropium/Albuterol Neb 3 ML IH SCH ×4 (11:20→23:33)
[2017-01-20] MEDS ORDERED: Magnesium Sulfate 2 GM in D5% in Water 100 ML IVPB ONE (11:24)
--- NOTE | 2017-01-20 11:28 | Internal Med Progress Note ---
Date of Encounter: 01/20/17 Time of Encounter: 08:45 - Assessment and plan (1) Cellulitis Current Visit: Yes Status: Acute Assessment and plan: Minimal improvement compared to yesterday. Continue intravenous vancomycin and Zosyn. Surgery evaluation appreciated s/p I&D (01/20/17) will continue daily wound care as per surgery f/u wound cultures High risk due to risk of septic shock and worsening sepsis Qualifiers: Site of cellulitis: trunk Site of cellulitis of trunk: abdominal wall Qualified Code(s): L03.311 - Cellulitis of abdominal wall (2) Congestive heart failure Current Visit: Yes Status: Chronic Assessment and plan: Stable and euvolemic. Qualifiers: Congestive heart failure type: combined Congestive heart failure chronicity : chronic Qualified Code(s): I50.42 - Chronic combined systolic (congestive) and diastolic (congestive) heart failure (3) COPD (chronic obstructive pulmonary disease) Current Visit: Yes Status: Chronic Assessment and plan: Noted to have acute exacerbation this morning pt reports of not being able to receive his nebulizer treatments overnight currently saturating well on nasal cannula continue O2 supplementation and bipap support as needed monitor respiratory status closely started systemic steroids and bronchodilator support Qualifiers: COPD type: unspecified COPD Qualified Code(s): J44.9 - Chronic obstructive pulmonary disease, unspecified (4) Diabetes mellitus Current Visit: Yes Status: Chronic Assessment and plan: Noted to be hyperglycemic adjusted insulin therapy as per insulin requirements continue sliding scale insulin algorithm (increased to med dose) monitor FS and BG will adjust insulin therapy as per insulin requirements Qualifiers: Diabetes mellitus type: type 2 Diabetes mellitus complication status: with circulatory complication Diabetes mellitus complication detail: with peripheral angiopathy without gangrene Diabetes mellitus terminologist insulin use : with terminologist use Qualified Code(s): E11.51 - Type 2 diabetes mellitus with diabetic peripheral angiopathy without gangrene; Z79.4 - care home (current ) use of insulin (5) Tobacco abuse Current Visit: Yes Status: Chronic Assessment and plan: Counseled regarding the need for smoking cessation. (6) DVT prophylaxis Current Visit: Yes Status: Acute Assessment and plan: heparin SQ - Subjective Interval history: Pt seen and examined multiple times during the day. Noted to have acute respiratory distress this morning due to which rapid response was called. Patient was placed on bipap support and was given nebulizer treatments, IV steroids. Pt's respiratory distress improved and is currently saturating well on nasal cannula. States overnight he did not receive his nebulizer treatments. - Constitutional Vitals: Temp Pulse Resp BP Pulse Ox 97.9 F 90 18 132/85 96 01/20/17 07:18 01/20/17 07:18 01/20/17 07:18 01/20/17 07:18 01/20/17 07:18 General appearance: Present: A&O X 3, no acute distress, answers questions appropriately - Head Head exam: Present: atraumatic, normocephalic - Eye Eye exam: Present: conjuntiva pink, sclera anicteric - Respiratory Respiratory exam: Present: wheezes (diffuse wheezing ) - Cardiovascular Cardiovascular exam: Present: +S1, +S2, tachycardia. Absent: diastolic murmur, gallop, rubs, systolic murmur - GI/Abdominal GI/Abdominal exam: Present: normal bowel sounds, soft (midline abd wall erythema and tenderness ) - Extremities Exam Extremities exam: Present: calf tenderness (s/p left BKA ), pedal edema, warm, radial pulses palpable and symetrical - Neurological Exam Neurological exam: Present: alert, oriented X3 - Psychiatric Psychiatric exam: Present: normal affect, normal mood Internal Medicine: Result - Labs CBC & Chem 7: 01/20/17 09:08 01/20/17 09:08 Labs: Short CBC 01/20/17 Range/Units 09:08 WBC 9.8 (4.3-11.1) K/mcL Hgb 10.4 L (12.9-16.9) g/dL Hct 30.1 L (37.5-50.1) % Plt Count 240 (140-400) K/mcL Neutrophils # 7.6 (1.6-8.9) K/mcL BMP 01/20/17 09:08 Sodium 139 Potassium 4.1 Chloride 103 Carbon Dioxide 29 BUN 11 Creatinine 1.79 H D Glucose 295 H Calcium 9.3 Cardiac Enzymes 01/20/17 Range/Units 08:32 Troponin I 0.05 H* (0-0.03) ng/mL - ABG Interpretation ABG results: ABG ABG pH 7.42 pH Units (7.32-7.45) 01/20/17 08:17 ABG pCO2 40 mmHg (35-45) 01/20/17 08:17 ABG pO2 59 mmHg (85-104) L 01/20/17 08:17 ABG O2 Saturation 91 % (95-98) L 01/20/17 08:17 PT/INR, D-dimer PT 13.9 Seconds (9.4-12.1) H 01/15/17 11:25 - Impressions Impressions Chest X-Ray 01/20/17 07:59 IMPRESSION: 1. Mildly increased interstitial markings may represent interstitial edema. 2. Mild thickening of the right minor fissure may be due to small pleural effusion. D/ / Mikey Cherry MD / Mikey Cherry MD Interpreting Provider: Mikey Cherry MD Consult Discharge Plan - Plan Additional Instructions: Wound care- Cleanse midline with soap and water in the shower, pack open areas X 2 with 1/4 inch plain gauze, cover with dry 4X4 gauze and tape to secure daily. Referrals: Sincere López MD [Partnered Physician] - 02/02/17 9:00 am ([facility]- [phone]) [facility]Primary Care Provider[facility] -
[2017-01-20] MEDS: Sennosides/Docusate Sodium TABLET PO SCH ×2 (11:59→21:45)
[2017-01-20] MEDS ORDERED: Levalbuterol Neb 1.25 MG/3 ML IH SCH (12:00)
[2017-01-20] MEDS: Vancomycin 1,750 MG in D5% in Water 500 ML IVPB SCH (15:43)
[2017-01-21] MEDS: *HR* OxyCODONE Immed Rel 5 MG TABLET PO PRN (00:18)
[2017-01-21] MEDS: Piperacillin/Tazobactam 3.375 GM in D5% in Water (Mini-Bag+) 100 ML IVPB SCH ×3 (00:22→17:06)
[2017-01-21] MEDS: *HR* OxyCODONE ER (12 HR) 20 MG TABLET PO SCH ×3 (00:22→17:02)
[2017-01-21] MEDS: Ipratropium/Albuterol Neb 3 ML IH SCH ×6 (04:27→23:46)
[2017-01-21] MEDS: *HR* Heparin 5,000 UNIT/ML VIAL SQ SCH ×2 (05:18→17:04)
[2017-01-21 05:48] LABS: Basophils % 0.3 %; Eosinophils # 0.1 K/mcL (0.0-0.6); Eosinophils % 0.7 %; Hemoglobin 9.8 g/dL (12.9-16.9); Immature Granulocytes % 1.5 % (0-4); Lymphocytes # 1.4 K/mcL (0.6-4.6); Lymphocytes % 11.4 %; Mean Corpuscular HGB Conc 33.8 g/dL (31.6-35.5); Mean Corpuscular Hemoglobin 31.4 pg (28.0-33.3); Mean Corpuscular Volume 92.9 fL (83.0-100.0); Mean Platelet Volume 9.5 fL (9.4-12.4); Monocytes # 0.9 K/mcL (0.0-1.3); Monocytes % 7.5 %; Neutrophils # 9.7 K/mcL (1.6-8.9); Platelet Count 270 K/mcL (140-400); Red Blood Count 3.12 M/mcL (4.19-5.50); Red Cell Distribution Width 12.1 % (11.5-14.5); Segmented Neutrophils % 78.6 %
[2017-01-21 05:59] LABS: Calcium 9.1 mg/dL (8.6-10.8); Magnesium 1.9 mg/dL (1.6-2.6); Phosphorous 3.1 mg/dL (2.3-4.7)
[2017-01-21] MEDS ORDERED: MethylPREDNISolone 40 MG/ML VIAL IVP SCH (06:00)
[2017-01-21] MEDS: Budesonide/Formoterol 160/4.5 MDI IH SCH ×2 (07:50→20:01)
[2017-01-21] MEDS: Insulin LISPRO 300 UNITS/3 ML VIAL SQ SCH ×4 (09:46→21:42)
[2017-01-21] MEDS: Insulin NPH 100 UNIT/ML (x5UNIT) SQ SCH ×2 (10:03→21:41)
[2017-01-21] MEDS: Sennosides/Docusate Sodium TABLET PO SCH ×2 (10:03→21:41)
--- NOTE | 2017-01-21 10:09 | General Surgery Progress Note ---
<SamiKaitlynn Osmin - Last Filed: 01/21/17 10:11> Date of Encounter: 01/21/17 Time of Encounter: 09:30 - Assessment and Plan (1) Abdominal wall abscess Current Visit: Yes Status: Acute The patient's abdominal wall mass appears to be infection that is recurrent on multiple episodes. Given the patient's history, Dr. López feels that he has an infected abdominal wall mesh. The patient refused transfer to the [place] to continue his care. I&D was complete in anticipation of abdominal wall debridement of an infected mesh and reclosure of the [place] fascia. He understands this approach and wishes to proceed. Incision and Drainage complete Beginning 01/22/2017: Remove packing. Cleanse with soap and water. Repack with 1/4 inch plain gauze and cover with a dry dressing. Referral to for home health Cultures obtained- await final results Daily wound care as above Supportive care and pain control Follow-up with wound care 02/02/[address] López Surgery will sign off at this time. Please reconsult if questions or needs arise. Subjective Patient reports: no new complaints, feels better, still having pain, pain is less, voiding w/o difficulty, flatus, bowel movement Objective Vital Signs - Last 8 Hours Temp Pulse Resp BP Pulse Ox 01/21/17 07:59 97.8 F 86 18 122/82 92 01/21/17 07:50 18 91 01/21/17 04:57 97.7 F 89 18 118/70 93 01/21/17 04:28 20 98 Intake and Output 01/20/17 01/21/17 01/21/17 23:59 07:59 15:59 Intake Total 0 / 0 220 / 220 Output Total 500 / 500 850 / 850 Balance -500 / -500 -850 / -850 220 / 220 Intake: IV Fluids 100 / 100 Zosyn 3.375 GM In 100 / 100 Dextrose 5% (Minibag+) 100 ML 100 ML @ 25 mls/hr IVPB Q8HR [facility] Rx#: [id number] Oral 0 / 0 120 / 120 Output: Stool 150 / 150 Catheter 500 / 500 700 / 700 Other: Meal Breakfast Percent of Meal Consumed 100% Weight 92.5 kg Blood Glucose* 319 230 Patient Weight 01/21/17 23:59 Weight 92.5 kg - General physical appearance no distress, moderate pain - ENT normal mucosa, atraumatic, normocephalic - Neck Neck exam: trachea midline - Respiratory normal expansion, normal respiratory effort, other - Cardiovascular Cardiovascular exam: Present: RRR - Abdomen Abdomen: Present: bowel sounds present, soft, tender, wound (Midline drainage sites: superior site with purulent drainage. inferior site small amount of bloody drainage. Ostomy site WNL; output present.) - Integumentary no rash - Neurologic CN 2-12 grossly intact - Musculoskeletal normal posture - Psychiatric oriented to time, oriented to person, oriented to place - Labs 01/21/17 05:12 01/21/17 05:12 Diabetes panel 01/21/17 Range/Units 05:12 Sodium 136 (136-145) mEq/L Potassium 4.0 (3.5-4.5) mEq/L Chloride 101 (98-109) mEq/L Carbon Dioxide 29 (19-29) mEq/L BUN 16 (8-26) mg/dL Creatinine 2.02 H (0.72-1.25) mg/dL Glucose 229 H (70-99) mg/dL Calcium 9.1 (8.6-10.8) mg/dL Calcium panel 01/21/17 Range/Units 05:12 Calcium 9.1 (8.6-10.8) mg/dL Phosphorus 3.1 (2.3-4.7) mg/dL Pituitary panel 01/21/17 Range/Units 05:12 Sodium 136 (136-145) mEq/L Potassium 4.0 (3.5-4.5) mEq/L Chloride 101 (98-109) mEq/L Carbon Dioxide 29 (19-29) mEq/L BUN 16 (8-26) mg/dL Creatinine 2.02 H (0.72-1.25) mg/dL Glucose 229 H (70-99) mg/dL Calcium 9.1 (8.6-10.8) mg/dL Adrenal panel 01/21/17 Range/Units 05:12 Sodium 136 (136-145) mEq/L Potassium 4.0 (3.5-4.5) mEq/L Chloride 101 (98-109) mEq/L Carbon Dioxide 29 (19-29) mEq/L BUN 16 (8-26) mg/dL Creatinine 2.02 H (0.72-1.25) mg/dL Glucose 229 H (70-99) mg/dL Calcium 9.1 (8.6-10.8) mg/dL Consult Discharge Plan - Plan Additional Instructions: Wound care- Cleanse midline with soap and water in the shower, pack open areas X 2 with 1/4 inch plain gauze, cover with dry 4X4 gauze and tape to secure daily. Referrals: Sincere López MD [Partnered Physician] - 02/02/17 9:00 am ([facility] ) [facility] - <Sincere López - Last Filed: 01/22/17 06:52> Date of Encounter: 01/21/17 - Assessment and Plan (1) Abdominal wall mass Current Visit: Yes Status: Acute Objective Vital Signs - Last 8 Hours Pulse Resp BP Pulse Ox 01/22/17 04:13 16 97 01/22/17 04:00 113 20 126/89 94 01/21/17 23:47 18 95 Intake and Output 01/21/17 01/21/17 01/22/17 15:59 23:59 07:59 Intake Total 800 / 800 280 / 280 130 / 130 Output Total 350 / 350 925 / 925 300 / 300 Balance 450 / 450 -645 / -645 -170 / -170 Intake: IV Fluids 200 / 200 100 / 100 100 / 100 Zosyn 3.375 GM In 200 / 200 100 / 100 100 / 100 Dextrose 5% (Minibag+) 100 ML 100 ML @ 25 mls/hr IVPB Q8HR [facility] Rx#: [id number] Oral 600 / 600 180 / 180 30 / 30 Output: Stool 300 / 300 Catheter 350 / 350 925 / 925 0 / 0 Other: Meal Lunch Dinner Percent of Meal Consumed 100% 100% Stool Consistency loose Stool Color Brown Weight 93.5 kg Blood Glucose* 304 261 Patient Weight 01/22/17 23:59 Weight 93.5 kg - Labs 01/21/17 05:12 01/21/17 05:12 - Attending Attestation I have personally performed a face to face evaluation on this patient. I have reviewed and agree with the care plan. History and Exam by me shows: The patient is seen and evaluated. Incision and drainage is performed on the midline. I believe this represents infected foreign body or melena. I will follow him in the wound clinic as an outpatient and when he has maximized his therapy for acute infection midline we will plan surgical exploration and removal of foreign body Sincere López MD FACS
[2017-01-21] MEDS: *HR* HYDROmorphone 2 MG/ML SYRINGE IVP PRN (13:09)
--- NOTE | 2017-01-21 15:42 | Internal Med Progress Note ---
Date of Encounter: 01/21/17 Time of Encounter: 14:05 - Assessment and plan (1) Cellulitis Current Visit: Yes Status: Acute Assessment and plan: Significant improvement compared to yesterday D/C vancomycin given trough and worsening renal function continue Zosyn Surgery evaluation appreciated s/p I&D (01/20/17) will continue daily wound care as per surgery f/u wound cultures High risk due to risk of septic shock and worsening sepsis Qualifiers: Site of cellulitis: trunk Site of cellulitis of trunk: abdominal wall Qualified Code(s): L03.311 - Cellulitis of abdominal wall (2) Congestive heart failure Current Visit: Yes Status: Chronic Assessment and plan: Stable and euvolemic. restarted Imdur Started low dose Carvedilol, will increase dose as BP permits Qualifiers: Congestive heart failure type: combined Congestive heart failure chronicity : chronic Qualified Code(s): I50.42 - Chronic combined systolic (congestive) and diastolic (congestive) heart failure (3) COPD (chronic obstructive pulmonary disease) Current Visit: Yes Status: Chronic Assessment and plan: Respiratory status improved from previous day currently saturating well on nasal cannula continue O2 supplementation and bipap support as needed monitor respiratory status closely continue systemic steroids and bronchodilator support will start PO steroids in am and d/c IV steroids after this evening dose Qualifiers: COPD type: unspecified COPD Qualified Code(s): J44.9 - Chronic obstructive pulmonary disease, unspecified (4) Diabetes mellitus Current Visit: Yes Status: Chronic Assessment and plan: continue insulin therapy continue sliding scale insulin algorithm (increased to med dose) monitor FS and BG will adjust insulin therapy as per insulin requirements Qualifiers: Diabetes mellitus type: type 2 Diabetes mellitus complication status: with circulatory complication Diabetes mellitus complication detail: with peripheral angiopathy without gangrene Diabetes mellitus prison insulin use : with 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 (6) DVT prophylaxis Current Visit: Yes Status: Acute Assessment and plan: heparin SQ - Subjective Interval history: Pt seen and examined at bedside. Resting comfortably in bed and reports of feeling better compared to previous day. States he feels better overall. Denies any discomfort at this time. - Constitutional Vitals: Temp Pulse Resp BP Pulse Ox 97.9 F 102 18 124/75 95 01/21/17 12:24 01/21/17 12:24 01/21/17 12:24 01/21/17 12:24 01/21/17 12:24 General appearance: Present: A&O X 3, no acute distress, answers questions appropriately - Head Head exam: Present: atraumatic, normocephalic - Eye Eye exam: Present: conjuntiva pink, sclera anicteric - Respiratory Respiratory exam: Absent: respiratory distress, wheezes - Cardiovascular Cardiovascular exam: Present: RRR, +S1, +S2. Absent: diastolic murmur, gallop, rubs, systolic murmur - GI/Abdominal GI/Abdominal exam: Present: normal bowel sounds, soft. Absent: tenderness ( midline dressing intact-s/p I&D, RLQ colostomy intact) - Extremities Exam Extremities exam: Present: warm, radial pulses palpable and symetrical. Absent : calf tenderness - Neurological Exam Neurological exam: Present: alert, oriented X3 - Psychiatric Psychiatric exam: Present: normal affect, normal mood Internal Medicine: Result - Labs CBC & Chem 7: 01/21/17 05:12 01/21/17 05:12 Labs: Short CBC 01/21/17 Range/Units 05:12 WBC 12.3 H (4.3-11.1) K/mcL Hgb 9.8 L (12.9-16.9) g/dL Hct 29.0 L (37.5-50.1) % Plt Count 270 (140-400) K/mcL Neutrophils # 9.7 H (1.6-8.9) K/mcL BMP 01/21/17 05:12 Sodium 136 Potassium 4.0 Chloride 101 Carbon Dioxide 29 BUN 16 Creatinine 2.02 H Glucose 229 H Calcium 9.1 Cardiac Enzymes 01/20/17 Range/Units 20:44 Troponin I 0.05 H* (0-0.03) ng/mL - ABG Interpretation ABG results: ABG ABG pH 7.42 pH Units (7.32-7.45) 01/20/17 08:17 ABG pCO2 40 mmHg (35-45) 01/20/17 08:17 ABG pO2 59 mmHg (85-104) L 07/18/17 08:17 ABG O2 Saturation 91 % (95-98) L 01/20/17 08:17 PT/INR, D-dimer PT 13.9 Seconds (9.4-12.1) H 01/15/17 11:25 - Impressions Impressions Retroperitoneum Ultrasound 01/21/17 10:30 IMPRESSION: 1. Suspected malpositioned George catheter terminating in the prostatic urethra. 2. No abnormality of the urinary bladder identified. 3. Normal appearance of both kidneys. 4. Cholelithiasis. The findings were sent to the Radiology Results Communication Center at 12:13 pm on 01/21/2017to be communicated to a licensed caregiver. D/ / 01/21/2017 13:12:46 Ranjith Cruz MD / dane Interpreting Provider: Ranjith Cruz MD Consult Discharge Plan - Plan Additional Instructions: Wound care- Cleanse midline with soap and water in the shower, pack open areas X 2 with 1/4 inch plain gauze, cover with dry 4X4 gauze and tape to secure daily. Referrals: Sincere López MD [Partnered Physician] - 02/02/17 9:00 am ([facility] ) [place] Care [place] -
[2017-01-22] MEDS: Piperacillin/Tazobactam 3.375 GM in D5% in Water (Mini-Bag+) 100 ML IVPB SCH ×3 (00:07→18:26)
[2017-01-22] MEDS: *HR* OxyCODONE ER (12 HR) 20 MG TABLET PO SCH ×3 (00:07→18:25)
[2017-01-22] MEDS: *HR* OxyCODONE Immed Rel 5 MG TABLET PO PRN ×2 (04:06→14:08)
[2017-01-22] MEDS: Ipratropium/Albuterol Neb 3 ML IH SCH ×6 (04:13→23:57)
[2017-01-22] MEDS: *HR* Heparin 5,000 UNIT/ML VIAL SQ SCH ×2 (05:38→18:25)
--- NOTE | 2017-01-22 06:39 | Electrocardiograph Report ---
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
[2017-01-22 06:56] LABS: Magnesium 1.9 mg/dL (1.6-2.6); Phosphorous 3.8 mg/dL (2.3-4.7)
[2017-01-22 07:04] LABS: Basophils # 0.1 K/mcL (0.0-0.2); Basophils % 0.5 %; Eosinophils # 0.7 K/mcL (0.0-0.6); Hematocrit 29.9 % (37.5-50.1); Hemoglobin 9.9 g/dL (12.9-16.9); Immature Granulocytes % 1.8 % (0-4); Lymphocytes # 2.2 K/mcL (0.6-4.6); Lymphocytes % 16.9 %; Mean Corpuscular HGB Conc 33.1 g/dL (31.6-35.5); Mean Corpuscular Hemoglobin 31.4 pg (28.0-33.3); Mean Corpuscular Volume 94.9 fL (83.0-100.0); Mean Platelet Volume 9.5 fL (9.4-12.4); Monocytes % 7.7 %; Neutrophils # 8.8 K/mcL (1.6-8.9); Platelet Count 288 K/mcL (140-400); Red Blood Count 3.15 M/mcL (4.19-5.50); Red Cell Distribution Width 12.4 % (11.5-14.5); Segmented Neutrophils % 68.1 %
[2017-01-22] MEDS ORDERED: Aminoglycoside Consult 1 EACH MC ONE (07:29)
[2017-01-22] MEDS: Budesonide/Formoterol 160/4.5 MDI IH SCH ×2 (08:07→20:25)
[2017-01-22 08:44] LABS: Vancomycin,Random 19.9 mcg/mL
[2017-01-22] MEDS: Insulin LISPRO 300 UNITS/3 ML VIAL SQ SCH ×4 (09:59→21:14)
[2017-01-22] MEDS: Isosorbide MONOnitrate (24 HR) 30 MG TAB.ER.24H PO SCH (10:03)
[2017-01-22] MEDS: predniSONE 20 MG TABLET PO SCH (10:03)
[2017-01-22] MEDS: Insulin NPH 100 UNIT/ML (x5UNIT) SQ SCH ×2 (10:10→21:13)
[2017-01-22] MEDS: Sennosides/Docusate Sodium TABLET PO SCH ×2 (10:21→21:12)
--- NOTE | 2017-01-22 11:21 | Nephrology Consult Note ---
Date of Encounter: 01/22/17 Time of Encounter: 11:19 Assessment and Plan (1) Acute kidney failure Current Visit: Yes Status: Resolved Renal ultrasound shows normal kidneys Agree with holding Vanco; if restarted, pharmacy to dose Will do BO workup to include: UA, urine culture, urine sodium, urine creatinine, urine eosinophils, CPK, uric acid Avoid nephrotoxins if possible Continue I/Os. Qualifiers: Acute renal failure type: unspecified Qualified Code(s): N17.9 - Acute kidney failure, unspecified (2) Cellulitis Current Visit: Yes Status: Acute per primary team Qualifiers: Site of cellulitis: trunk Site of cellulitis of trunk: abdominal wall Qualified Code(s): L03.311 - Cellulitis of abdominal wall (3) CAD (coronary artery disease) Current Visit: Yes Status: Chronic per primary team Qualifiers: Coronary Disease-Associated Artery/Lesion type: bypass graft [place] vs. 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 Barcenas is a 76 year old male with h/o- subtotal colectomy and colostomy about 7 years ago at [facility], was sent from [facility] FOR EVALUATION OF abdominal skin infection. Patient has had multiple surgical wound infections since his colostomy surgery and underwent several office-based drainages and wound care at home. He presents with worsening pain, swelling and redness over his abdomen, close to his colostomy site. Patient admitted with cellulitis. Patient has been on Vanco with a trough level of 27.6 yesterday; Vanco stopped. 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 Nephrology has been consulted to manage BO. Patient denies any history of kidney problems. Past Med Surg Social Fam HX - Past Medical History Medical history: arthritis, asthma, cardiomyopathy, COPD, coronary artery disease, diabetes, GERD, hyperlipidemia, hypertension, myocardial infarction, osteoporosis, peripheral artery disease, venous stasis, other Psychiatric history: no psych history - Past Surgical History Surgical History: angioplasty/stent, colostomy, coronary bypass (CABG), herniorrhaphy, other (left BKA) - Social History Smoking Status: Current every day smoker Packs per day: 1 Smokeless Tobacco Status: No Alcohol use: none Drug use: none - Family History Father Name: shari Family Member Ethnicity: Non- Living Status: Age at : 72 Cause of : small lung cancer Hx Family Respiratory Disorders: Yes Hx Family Cancer: Yes Medications and Allergies Albuterol Sulfate [Albuterol Inhaler] 2 puff IH Q8H PRN 12/15/15 [History] Aspirin Enteric Coated [Aspirin EC] 81 mg PO DAILY 12/15/15 [History] Benzonatate [Tessalon] 100 mg PO Q4H PRN 12/15/15 [History] Budesonide/Formoterol 160/4.5 [Symbicort 160/4.5] 2 puff IH BIDR 12/15/15 [ History] Carvedilol [Coreg] 50 mg PO BID 12/15/15 [History] Guaifenesin 400 mg PO DAILY PRN 12/15/15 [History] Ipratropium/Albuterol Neb [Duoneb] 3 ml IH Q6HR 12/15/15 [History] Isosorbide MONOnitrate (24 HR) [Imdur] 45 mg PO DAILY 12/15/15 [History] Metformin HCl [Glucophage] 500 mg PO BID 12/15/15 [History] Nortriptyline [Pamelor] 10 mg PO TID 12/15/15 [History] OxyCODONE ER (12 HR) [OxyCONTIN] 20 mg PO Q8H 12/15/15 [History] Pantoprazole Sodium 40 mg PO DAILY 12/15/15 [History] Terazosin HCl 2 mg PO HS 12/15/15 [History] Valsartan [Diovan] 40 mg PO BID 12/15/15 [History] Aloe Vera/Collagen [Aloe [place] Cleansing Foam] 1 appl TP AD PRN 01/15/17 [ History] Atorvastatin Calcium [Lipitor] 10 mg PO DAILY 01/15/17 [History] Clopidogrel [Plavix] 75 mg PO DAILY 01/15/17 [History] Furosemide [Lasix] 20 mg PO QAM 01/15/17 [History] Insulin NPH Human Isophane [Novolin N] 22 unit SQ QAM 01/15/17 [History] Insulin NPH Human Isophane [Novolin N] 27 unit SQ QPM 01/15/17 [History] L. Acidophilus/Pectin, [place] [Acidophilus Probiotic Capsule] 1 cap PO DAILY [History] Lisinopril 2.5 mg PO DAILY 01/15/17 [History] Loratadine [Allergy Relief] 10 mg PO DAILY 01/15/17 [History] Nitroglycerin [Nitrostat] 0.4 mg SL AD PRN 01/15/17 [History] Spironolactone [Aldactone] 12.5 mg PO DAILY 01/15/17 [History] Allergies iodine Allergy (Verified 12/15/15 11:22) Hives TOPICAL IODINE/ PT IS OK WITH [id number] FOR CTA'S ondansetron [From Zofran (as hydrochloride)] Allergy (Verified 01/15/17 11:38) Hives Review of Systems All Systems: reviewed and no additional remarkable complaints except as stated Constitutional: no anorexia, no chills Nose, mouth and throat: no dizziness Cardiovascular: no chest pain, no dyspnea Respiratory: no wheezing Gastrointestinal: no constipation, no cramping, no nausea, no vomiting Integumentary: skin pain, sores Neurological: no behavioral changes Exam - Vital Signs Vital signs: Initial Vital Signs Temp Pulse Resp BP Pulse Ox 98.5 F 81 18 108/67 97 01/15/17 10:21 01/15/17 10:21 01/15/17 10:21 01/15/17 10:21 01/15/17 10:21 Vital Signs - Last 8 Hours Temp Pulse Resp BP Pulse Ox 01/22/17 08:08 18 92 01/22/17 07:00 97.7 F 90 16 135/84 97 01/22/17 04:13 16 97 01/22/17 04:00 113 20 126/89 94 Intake and Output 01/21/17 01/22/17 01/22/17 23:59 07:59 15:59 Intake Total 280 / 280 130 / 130 Output Total 925 / 925 1300 / 1300 300 / 300 Balance -645 / -645 -1170 / -1170 -300 / -300 Intake: IV Fluids 100 / 100 100 / 100 Zosyn 3.375 GM In 100 / 100 100 / 100 Dextrose 5% (Minibag+) 100 ML 100 ML @ 25 mls/hr IVPB Q8HR [facility] Rx#: [id number] Oral 180 / 180 30 / 30 Output: Stool 300 / 300 300 / 300 Catheter 925 / 925 1000 / 1000 Other: Meal Dinner Percent of Meal Consumed 100% Stool Consistency loose Stool Color Brown Weight 93.5 kg 93.5 kg Blood Glucose* 261 96 96 Patient Weight 01/22/17 23:59 Weight 93.5 kg - General Appearance General appearance: well-developed, well-nourished EENT: ATNC, mucous membranes moist, hearing intact, vision intact Neck: supple Respiratory: clear Cardiology: no edema, normal S1, normal S2 Gastrointestinal: tenderness, no guarding Integumentary: warm and dry Neurologic: alert and oriented x3 Musculoskeletal: deformities (left BKA) Psychiatric: mood/affect appropriate, cooperative Results - Lab Results 01/22/17 06:06 01/22/17 06:06 Most recent lab results ABG pH 7.42 pH Units (7.32-7.45) 01/20/17 08:17 ABG pCO2 40 mmHg (35-45) 01/20/17 08:17 ABG pO2 59 mmHg (85-104) L 01/20/17 08:17 ABG HCO3 25.9 mEQ/L (21-27) 01/20/17 08:17 ABG O2 Saturation 91 % (95-98) L 01/20/17 08:17 Calcium 9.0 mg/dL (8.6-10.8) 01/22/17 06:06 Phosphorus 3.8 mg/dL (2.3-4.7) 01/22/17 06:06 Magnesium 1.9 mg/dL (1.6-2.6) 01/22/17 06:06 Consult Discharge Plan - Plan Additional Instructions: Wound care- Cleanse midline with soap and water in the shower, pack open areas X 2 with 1/4 inch plain gauze, cover with dry 4X4 gauze and tape to secure daily. Referrals: Sincere López MD [Partnered Physician] - 02/02/17 9:00 am ([facility] ) [facility] - 01/30/17 3:00 pm
[2017-01-22 12:17] LABS: Uric Acid 5.1 mg/dL (3.5-7.2)
--- NOTE | 2017-01-22 12:19 | Internal Med Progress Note ---
Date of Encounter: 01/22/17 Time of Encounter: 12:18 - Assessment and plan (1) Cellulitis Current Visit: Yes Status: Acute Assessment and plan: Significant improvement compared to yesterday Wound culture positive for GPC, will follow up official cultures will start Linezolid continue Zosyn Surgery evaluation appreciated s/p I&D (01/20/17) will continue daily wound care as per surgery Qualifiers: Site of cellulitis: trunk Site of cellulitis of trunk: abdominal wall Qualified Code(s): L03.311 - Cellulitis of abdominal wall (2) Congestive heart failure Current Visit: Yes Status: Chronic Assessment and plan: Stable and euvolemic. continue Imdur Increased Carvedilol to 6.25mg PO q12h, will increase dose as BP tolerates (pt reports of being on Carvedilol 50mg PO BID at home) Qualifiers: Congestive heart failure type: combined Congestive heart failure chronicity : chronic Qualified Code(s): I50.42 - Chronic combined systolic (congestive) and diastolic (congestive) heart failure (3) COPD (chronic obstructive pulmonary disease) Current Visit: Yes Status: Chronic Assessment and plan: Respiratory status improved from previous day currently saturating well on nasal cannula continue O2 supplementation and bipap support as needed monitor respiratory status closely continue systemic steroids and bronchodilator support continue PO steroids x 5 days (Day 1/5) Qualifiers: COPD type: unspecified COPD Qualified Code(s): J44.9 - Chronic obstructive pulmonary disease, unspecified (4) Diabetes mellitus Current Visit: Yes Status: Chronic Assessment and plan: continue insulin therapy continue sliding scale insulin algorithm (increased to med dose) monitor FS and BG will adjust insulin therapy as per insulin requirements Qualifiers: Diabetes mellitus type: type 2 Diabetes mellitus complication status: with circulatory complication Diabetes mellitus complication detail: with peripheral angiopathy without gangrene Diabetes mellitus [facility] insulin use : with 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 (6) DVT prophylaxis Current Visit: Yes Status: Acute Assessment and plan: heparin SQ - Subjective Interval history: Pt seen and examined at bedside. Resting comfortably in bed and denies any complains at this time. Patient encouraged to get out of bed to chair. No overnight issues reported. - Constitutional Vitals: Temp Pulse Resp BP Pulse Ox 97.7 F 90 18 135/84 97 01/22/17 07:00 01/22/17 07:00 01/22/17 11:15 01/22/17 07:00 01/22/17 11:15 General appearance: Present: cooperative, A&O X 3, no acute distress, answers questions appropriately - Head Head exam: Present: atraumatic, normocephalic - Eye Eye exam: Present: conjuntiva pink, sclera anicteric - Respiratory Respiratory exam: Absent: respiratory distress, wheezes - Cardiovascular Cardiovascular exam: Present: RRR, +S1, +S2. Absent: diastolic murmur, gallop, rubs, systolic murmur - GI/Abdominal GI/Abdominal exam: Present: normal bowel sounds, soft. Absent: tenderness ( midline dressing intact, s/p I&D, RLQ colostomy in place) - Extremities Exam Extremities exam: Present: warm, radial pulses palpable and symetrical. Absent : calf tenderness, cyanotic, pedal edema Additional comments: s/p left BKA - Neurological Exam Neurological exam: Present: alert, oriented X3 - Psychiatric Psychiatric exam: Present: normal affect, normal mood Internal Medicine: Result - Labs CBC & Chem 7: 01/22/17 06:06 01/22/17 06:06 Labs: Short CBC 01/22/17 Range/Units 06:06 WBC 13.0 H (4.3-11.1) K/mcL Hgb 9.9 L (12.9-16.9) g/dL Hct 29.9 L (37.5-50.1) % Plt Count 288 (140-400) K/mcL Neutrophils # 8.8 (1.6-8.9) K/mcL BMP 01/22/17 06:06 Sodium 139 Potassium 4.0 Chloride 103 Carbon Dioxide 30 H BUN 29 H D Creatinine 2.17 H Glucose 99 Calcium 9.0 - ABG Interpretation ABG results: ABG ABG pH 7.42 pH Units (7.32-7.45) 01/20/17 08:17 ABG pCO2 40 mmHg (35-45) 01/20/17 08:17 ABG pO2 59 mmHg (85-104) L 07/18/17 08:17 ABG O2 Saturation 91 % (95-98) L 01/20/17 08:17 PT/INR, D-dimer PT 13.9 Seconds (9.4-12.1) H 01/15/17 11:25 - Impressions Impressions Retroperitoneum Ultrasound 01/21/17 10:30 IMPRESSION: 1. Suspected malpositioned George catheter terminating in the prostatic urethra. 2. No abnormality of the urinary bladder identified. 3. Normal appearance of both kidneys. 4. Cholelithiasis. The findings were sent to the Radiology Results Communication Center at 12:13 pm on 01/21/2017to be communicated to a licensed caregiver. D/ / 01/21/2017 13:12:46 Ranjith Cruz MD / dane Interpreting Provider: Ranjith Cruz MD Consult Discharge Plan - Plan Additional Instructions: Wound care- Cleanse midline with soap and water in the shower, pack open areas X 2 with 1/4 inch plain gauze, cover with dry 4X4 gauze and tape to secure daily. Referrals: Sincere López MD [Partnered Physician] - 02/02/17 9:00 am ([facility] ) [place],PC[place] [Primary Care Provider] - 01/30/17 3:00 pm
[2017-01-22] MEDS: Linezolid 600 MG TABLET PO SCH ×2 (13:52→21:13)
[2017-01-22 14:29] LABS: Bilirubin,Urine Negative (Negative); Blood,Urine Large (Negative); Clarity,Urine Cloudy (Clear); Color,Urine Yellow (Yellow); Glucose,Urine (UA) 100 mg/dL (Normal); Ketones,Urine Negative (Negative); Leukocyte Esterase,Urine Trace (Negative); Nitrite,Urine Negative (Negative); Protein,Urine 100 mg/dL (Neg-Trace); Specific Gravity,Urine 1.011 (1.010-1.025); Urobilinogen,Urine Normal (Normal)
[2017-01-22 14:31] LABS: Hyaline Casts,Urine None Seen per lpf (None-Few); Squamous Epithelial Cell,Urine Many per lpf (None-Few)
[2017-01-22 14:48] LABS: Bacteria,Urine Moderate per hpf (None-Few); RBC,Urine 15-30 per hpf (0-3)
[2017-01-23] MEDS: *HR* OxyCODONE ER (12 HR) 20 MG TABLET PO SCH ×3 (00:28→17:10)
[2017-01-23] MEDS: Piperacillin/Tazobactam 3.375 GM in D5% in Water (Mini-Bag+) 100 ML IVPB SCH ×2 (00:29→08:27)
[2017-01-23] MEDS: Ipratropium/Albuterol Neb 3 ML IH SCH ×6 (04:14→23:27)
[2017-01-23] MEDS: *HR* Heparin 5,000 UNIT/ML VIAL SQ SCH ×2 (05:33→17:10)
[2017-01-23] MEDS: Budesonide/Formoterol 160/4.5 MDI IH SCH ×2 (07:23→19:56)
[2017-01-23] MEDS: Sennosides/Docusate Sodium TABLET PO SCH ×2 (08:26→22:17)
[2017-01-23] MEDS: Linezolid 600 MG TABLET PO SCH (08:27)
[2017-01-23] MEDS: predniSONE 20 MG TABLET PO SCH (08:27)
[2017-01-23] MEDS: Isosorbide MONOnitrate (24 HR) 30 MG TAB.ER.24H PO SCH (08:27)
[2017-01-23] MEDS: Insulin LISPRO 300 UNITS/3 ML VIAL SQ SCH ×5 (08:31→17:11)
[2017-01-23 08:32] LABS: Basophils # 0.1 K/mcL (0.0-0.2); Basophils % 0.4 %; Eosinophils # 0.2 K/mcL (0.0-0.6); Eosinophils % 1.1 %; Hematocrit 30.9 % (37.5-50.1); Hemoglobin 10.5 g/dL (12.9-16.9); Immature Granulocytes % 2.3 % (0-4); Lymphocytes # 1.8 K/mcL (0.6-4.6); Lymphocytes % 12.6 %; Mean Corpuscular Hemoglobin 32.2 pg (28.0-33.3); Mean Corpuscular Volume 94.8 fL (83.0-100.0); Mean Platelet Volume 9.6 fL (9.4-12.4); Monocytes # 1.1 K/mcL (0.0-1.3); Monocytes % 7.8 %; Neutrophils # 10.7 K/mcL (1.6-8.9); Platelet Count 284 K/mcL (140-400); Red Blood Count 3.26 M/mcL (4.19-5.50); Red Cell Distribution Width 12.3 % (11.5-14.5); Segmented Neutrophils % 75.8 %
[2017-01-23] MEDS: Insulin NPH 100 UNIT/ML (x5UNIT) SQ SCH ×2 (08:33→22:17)
[2017-01-23 08:47] LABS: Magnesium 1.7 mg/dL (1.6-2.6); Phosphorous 3.8 mg/dL (2.3-4.7); Potassium 4.2 mEq/L (3.5-4.5)
[2017-01-23] MEDS ORDERED: Insulin NPH 100 UNIT/ML (x5UNIT) SQ ONE (09:16)
[2017-01-23] MEDS ORDERED: Insulin LISPRO 300 UNITS/3 ML VIAL SQ SCH (09:20)
--- NOTE | 2017-01-23 10:13 | Internal Med Progress Note ---
Date of Encounter: 01/23/17 Time of Encounter: 10:10 - Assessment and plan (1) Cellulitis Current Visit: Yes Status: Acute Assessment and plan: s/p I&D (01/20/17) Wound culture positive for MRSA Will d/c IV abx and start Doxycycline as per culture sensitivities Will treat with abx for a total of 10 days from the day of I&D continue daily wound care Surgery evaluation appreciated Qualifiers: Site of cellulitis: trunk Site of cellulitis of trunk: abdominal wall Qualified Code(s): L03.311 - Cellulitis of abdominal wall (2) Acute kidney injury Current Visit: Yes Status: Acute Assessment and plan: Likely secondary to vanco toxicity nephrology consultation appreciated renal function worsened from previous day will f/u with nephrology in regards to discharge planning. D/c pending improvement in renal function/clearance for discharge from nephrology stand point (3) Congestive heart failure Current Visit: Yes Status: Chronic Assessment and plan: Stable and euvolemic. continue Imdur Increased Carvedilol to 12.5mg PO q12h, will increase dose as BP tolerates (pt reports of being on Carvedilol 50mg PO BID at home) Qualifiers: Congestive heart failure type: combined Congestive heart failure chronicity : chronic Qualified Code(s): I50.42 - Chronic combined systolic (congestive) and diastolic (congestive) heart failure (4) COPD (chronic obstructive pulmonary disease) Current Visit: Yes Status: Chronic Assessment and plan: Respiratory status improved from previous day currently saturating well on nasal cannula continue O2 supplementation and bipap support as needed monitor respiratory status closely continue systemic steroids and bronchodilator support continue PO steroids x 5 days (Day 2/5) Qualifiers: COPD type: unspecified COPD Qualified Code(s): J44.9 - Chronic obstructive pulmonary disease, unspecified (5) Diabetes mellitus Current Visit: Yes Status: Chronic Assessment and plan: continue insulin therapy noted to be hyperglycemic, likely secondary to steroid therapy increased NPH dosing and added premeal insulin as per the insulin requirements in the last 24 hours continue sliding scale insulin algorithm (increased to high dose) monitor FS and BG will adjust insulin therapy as per insulin requirements Qualifiers: Diabetes mellitus type: type 2 Diabetes mellitus complication status: with circulatory complication Diabetes mellitus complication detail: with peripheral angiopathy without gangrene Diabetes mellitus buttermaker insulin use : with buttermaker use Qualified Code(s): E11.51 - Type 2 diabetes mellitus with diabetic peripheral angiopathy without gangrene; Z79.4 - buttermaker (current ) use of insulin (6) Tobacco abuse Current Visit: Yes Status: Chronic Assessment and plan: Counseled regarding the need for smoking cessation. (7) DVT prophylaxis Current Visit: Yes Status: Acute Assessment and plan: heparin SQ - Subjective Interval history: Pt seen and examined at bedside. Resting comfortably in bed and denies any complains at this time. Patient encouraged to get out of bed to chair. No overnight issues reported. Wound cultures positive for MRSA, will switch to PO abx - Constitutional Vitals: Temp Pulse Resp BP Pulse Ox 97.7 F 83 16 134/83 97 01/22/17 23:19 01/23/17 07:00 01/23/17 07:24 01/23/17 07:00 01/23/17 07:24 General appearance: Present: cooperative, A&O X 3, no acute distress, answers questions appropriately - Head Head exam: Present: atraumatic, normocephalic - Eye Eye exam: Present: conjuntiva pink, sclera anicteric - Respiratory Respiratory exam: Present: CTAB. Absent: accessory muscle use, rales, rhonchi, wheezes - Cardiovascular Cardiovascular exam: Present: RRR, +S1, +S2. Absent: diastolic murmur, gallop, rubs, systolic murmur - GI/Abdominal GI/Abdominal exam: Present: normal bowel sounds, soft, no peritoneal signs. Absent: distended, tenderness - Extremities Exam Extremities exam: Present: warm, radial pulses palpable and symetrical. Absent : calf tenderness, pedal edema Additional comments: s/p left BKA - Neurological Exam Neurological exam: Present: alert, oriented X3 - Psychiatric Psychiatric exam: Present: normal affect, normal mood Internal Medicine: Result - Labs CBC & Chem 7: 01/23/17 08:08 01/23/17 08:08 Labs: Short CBC 01/23/17 Range/Units 08:08 WBC 14.1 H (4.3-11.1) K/mcL Hgb 10.5 L (12.9-16.9) g/dL Hct 30.9 L (37.5-50.1) % Plt Count 284 (140-400) K/mcL Neutrophils # 10.7 H (1.6-8.9) K/mcL BMP 01/23/17 08:08 Sodium 137 Potassium 4.2 Chloride 101 Carbon Dioxide 29 BUN 34 H Creatinine 2.30 H Glucose 201 H Calcium 9.0 Urine 01/22/17 Range/Units 14:17 Urine Color Yellow (Yellow) Urine Clarity Cloudy A (Clear) Urine pH 6.0 (5.0-8.0) pH Units Ur Specific [place] 1.011 (1.010-1.025) Urine Protein 100 H (Neg-Trace) mg/dL Urine Glucose (UA) 100 H (Normal) mg/dL - ABG Interpretation ABG results: ABG ABG pH 7.42 pH Units (7.32-7.45) 01/20/17 08:17 ABG pCO2 40 mmHg (35-45) 01/20/17 08:17 ABG pO2 59 mmHg (85-104) L 01/20/17 08:17 ABG O2 Saturation 91 % (95-98) L 01/20/17 08:17 PT/INR, D-dimer PT 13.9 Seconds (9.4-12.1) H 01/15/17 11:25 Consult Discharge Plan - Plan Additional Instructions: Wound care- Cleanse midline with soap and water in the shower, pack open areas X 2 with 1/4 inch plain gauze, cover with dry 4X4 gauze and tape to secure daily. Referrals: Sincere López MD [Partnered Physician] - 02/02/17 9:00 am ([facility] ) [facility] [[facility] Care [facility] - 01/30/17 3:00 pm
--- NOTE | 2017-01-23 10:50 | Nephrology Progress Note ---
<Ciro Chou - Last Filed: 01/23/17 13:53> Date of Encounter: 01/23/17 Time of Encounter: 10:46 - Assessment and Plan (1) Acute kidney injury Current Visit: Yes Status: Acute Scr continues to increase 2.17>>2.30 UOP 3400 last 24 hours. 2nd to vancomycin urinalysis dirty urine sodium 48 urine creatinine 40 urine eosinophils 0 uric acid 5: unlikely prerenal renal US show normal kidney 2nd to vanc and zosyn Vanc d/c and patient started on linizolid Plan: UOP adequate. Conitnue to monitor kidney function strict I/O avoid nephrotoxins. (2) CAD (coronary artery disease) Current Visit: Yes Status: Chronic as per primary team Qualifiers: Coronary Disease-Associated Artery/Lesion type: bypass graft [place] vs. transplanted heart: [place] heart Associated angina: without angina Qualified Code(s): I25.810 - Atherosclerosis of coronary artery bypass graft(s) without angina pectoris (3) Cellulitis Current Visit: Yes Status: Acute improving. on linezolid cultures positive for MRSA as per primary Qualifiers: Site of cellulitis: trunk Site of cellulitis of trunk: abdominal wall Qualified Code(s): L03.311 - Cellulitis of abdominal wall Subjective Principal diagnosis: cellulitis Interval history: NO overnight issues. Denies N/V/D. George removed No urine output since removal. Objective - Vital Signs Vital signs: Vital Signs Temp Pulse Resp BP Pulse Ox 01/23/17 07:24 16 97 01/23/17 07:00 83 20 134/83 100 01/23/17 03:23 93 18 119/80 94 01/22/17 23:57 15 97 01/22/17 23:19 97.7 F 82 18 112/74 96 01/22/17 20:24 16 95 01/22/17 18:57 98.1 F 98 18 120/77 96 01/22/17 16:20 16 96 01/22/17 16:16 87 15 108/80 96 01/22/17 11:15 18 97 Intake and Output 01/22/17 01/23/17 01/23/17 23:59 07:59 15:59 Intake Total 1060 / 1060 100 / 100 240 / 240 Output Total 1600 / 1600 600 / 600 Balance -540 / -540 -500 / -500 240 / 240 Intake: IV Fluids 100 / 100 100 / 100 Zosyn 3.375 GM In 100 / 100 100 / 100 Dextrose 5% (Minibag+) 100 ML 100 ML @ 25 mls/hr IVPB Q8HR [facility] Rx#: [id number] Oral 960 / 960 0 / 0 240 / 240 Output: Stool 200 / 200 Catheter 1600 / 1600 400 / 400 Other: Meal Dinner Breakfast Percent of Meal Consumed 100% 80% Weight 95.1 kg Blood Glucose* 354 222 Patient Weight 01/23/17 23:59 Weight 95.1 kg - General Appearance General appearance: Present: well-developed, well-nourished, appears started age EENT: Present: PERRL, mucous membranes moist Neck: Present: no JVD, supple Respiratory: Present: clear Cardiology: Present: regular rate, regular rhythm, normal S1, normal S2 Additional Comments: no abdominal tenderness. RLL colostomy bag, dressing intact midline, there is no erythema, wounds packed. Integumentary: Present: no rash, warm and dry Neurologic: Present: no focal deficit, no asterixis, alert and oriented x3 Musculoskeletal: Present: deformities (left below knee amputation. ), no erythema, no cyanosis, no clubbing Psychiatric: Present: mood/affect appropriate, cooperative - Lab 01/23/17 08:08 01/23/17 08:08 Most recent lab results ABG pH 7.42 pH Units (7.32-7.45) 01/20/17 08:17 ABG pCO2 40 mmHg (35-45) 01/20/17 08:17 ABG pO2 59 mmHg (85-104) L 01/20/17 08:17 ABG HCO3 25.9 mEQ/L (21-27) 01/20/17 08:17 ABG O2 Saturation 91 % (95-98) L 01/20/17 08:17 Calcium 9.0 mg/dL (8.6-10.8) 01/23/17 08:08 Phosphorus 3.8 mg/dL (2.3-4.7) 01/23/17 08:08 Magnesium 1.7 mg/dL (1.6-2.6) 01/23/17 08:08 Urine Creatinine 40 mg/dL 01/22/17 14:17 Urine Sodium 48.0 mEq/L 01/22/17 14:17 Consult Discharge Plan - Plan Additional Instructions: Wound care- Cleanse midline with soap and water in the shower, pack open areas X 2 with 1/4 inch plain gauze, cover with dry 4X4 gauze and tape to secure daily. Referrals: Sincere López MD [Partnered Physician] - 02/02/17 9:00 am ([facility]- [phone]) [facility] Care Provider[facility] - 01/30/17 3:00 pm <Aris Avila - Last Filed: 01/24/17 12:40> Date of Encounter: 01/23/17 Objective - Vital Signs Vital signs: Vital Signs Temp Pulse Resp BP Pulse Ox 01/24/17 11:34 97.9 F 117 18 134/83 97 01/24/17 11:11 17 98 01/24/17 08:04 17 98 01/24/17 07:06 98.0 F 80 17 142/84 98 01/24/17 05:05 98.5 F 78 15 131/79 98 01/23/17 23:30 100 01/23/17 23:28 19 100 01/23/17 22:11 98.3 F 77 17 122/75 99 01/23/17 19:56 21 98 01/23/17 15:53 16 98 01/23/17 15:00 76 14 100/58 97 Intake and Output 01/23/17 01/24/17 01/24/17 23:59 07:59 15:59 Intake Total 360 / 360 Output Total 300 / 300 395 / 395 Balance -300 / -300 -35 / -35 Intake: Oral 360 / 360 Output: Urine 300 / 300 395 / 395 Other: Meal Breakfast Percent of Meal Consumed 100% Weight 95.4 kg Blood Glucose* 176 127 255 Patient Weight 01/24/17 23:59 Weight 95.4 kg - Lab 01/24/17 05:33 01/24/17 05:33 Most recent lab results ABG pH 7.42 pH Units (7.32-7.45) 01/20/17 08:17 ABG pCO2 40 mmHg (35-45) 01/20/17 08:17 ABG pO2 59 mmHg (85-104) L 01/20/17 08:17 ABG HCO3 25.9 mEQ/L (21-27) 01/20/17 08:17 ABG O2 Saturation 91 % (95-98) L 01/20/17 08:17 Calcium 8.8 mg/dL (8.6-10.8) 01/24/17 05:33 Phosphorus 3.2 mg/dL (2.3-4.7) 01/24/17 05:33 Magnesium 1.6 mg/dL (1.6-2.6) 01/24/17 05:33 Urine Creatinine 40 mg/dL 01/22/17 14:17 Urine Sodium 48.0 mEq/L 01/22/17 14:17 - Attending Attestation I examined this patient and my medical decision-making was reviewed with the Resident Physician. I agree with the documented findings, disposition and treatment plan as described except to the extent set forth below. Pt seen and examined with no complaints. Interim events noted. Exam unremarkable. SCr noted still elevating at 2.3, GFR 28 with vanco level still elevated. will monitor for now and consider discharge tomorrow if SCr and vanco improve. Continue renal protective strategies
[2017-01-23] MEDS: Doxycycline 100 MG CAPSULE PO SCH (22:17)
[2017-01-24] MEDS: *HR* OxyCODONE ER (12 HR) 20 MG TABLET PO SCH ×2 (01:00→09:37)
[2017-01-24] MEDS: Ipratropium/Albuterol Neb 3 ML IH SCH ×5 (04:03→16:15)
[2017-01-24] MEDS: *HR* Heparin 5,000 UNIT/ML VIAL SQ SCH (06:03)
[2017-01-24 06:07] LABS: Basophils # 0.1 K/mcL (0.0-0.2); Basophils % 0.4 %; Eosinophils # 0.2 K/mcL (0.0-0.6); Eosinophils % 1.4 %; Hematocrit 28.9 % (37.5-50.1); Hemoglobin 9.7 g/dL (12.9-16.9); Immature Granulocytes % 3.3 % (0-4); Lymphocytes # 2.2 K/mcL (0.6-4.6); Lymphocytes % 15.9 %; Mean Corpuscular HGB Conc 33.6 g/dL (31.6-35.5); Mean Corpuscular Hemoglobin 31.9 pg (28.0-33.3); Mean Corpuscular Volume 95.1 fL (83.0-100.0); Mean Platelet Volume 9.4 fL (9.4-12.4); Monocytes # 1.2 K/mcL (0.0-1.3); Monocytes % 8.2 %; Platelet Count 278 K/mcL (140-400); Red Blood Count 3.04 M/mcL (4.19-5.50); Red Cell Distribution Width 12.5 % (11.5-14.5); Segmented Neutrophils % 70.8 %
[2017-01-24 06:29] LABS: Calcium 8.8 mg/dL (8.6-10.8); Magnesium 1.6 mg/dL (1.6-2.6); Phosphorous 3.2 mg/dL (2.3-4.7); Potassium 4.1 mEq/L (3.5-4.5)
[2017-01-24] MEDS: Budesonide/Formoterol 160/4.5 MDI IH SCH (08:01)
[2017-01-24] MEDS: Doxycycline 100 MG CAPSULE PO SCH (09:37)
[2017-01-24] MEDS: Sennosides/Docusate Sodium TABLET PO SCH (09:37)
[2017-01-24] MEDS: Isosorbide MONOnitrate (24 HR) 30 MG TAB.ER.24H PO SCH (09:37)
[2017-01-24] MEDS: predniSONE 20 MG TABLET PO SCH (09:39)
[2017-01-24] MEDS: Insulin LISPRO 300 UNITS/3 ML VIAL SQ SCH ×4 (09:39→13:36)
[2017-01-24] MEDS: Insulin NPH 100 UNIT/ML (x5UNIT) SQ SCH (09:42)
--- NOTE | 2017-01-24 12:11 | Nephrology Progress Note ---
Date of Encounter: 01/24/17 Time of Encounter: 12:00 - Assessment and Plan (1) Acute kidney injury Current Visit: Yes Status: Acute SCr slightly better today at 2.23, GFR 29 which is reassuring if discharged today UOP acceptable Continue to avoid nephrotoxins if possible Will need repeat BMP within a week if discharged with followup appt with nephrology as well Subjective Principal diagnosis: cellulitis Interval history: Pt seen and examined with no new complaints and eager to go home. Objective - Vital Signs Vital signs: Vital Signs Temp Pulse Resp BP Pulse Ox 01/24/17 11:34 97.9 F 117 18 134/83 97 01/24/17 11:11 17 98 01/24/17 08:04 17 98 01/24/17 07:06 98.0 F 80 17 142/84 98 01/24/17 05:05 98.5 F 78 15 131/79 98 01/23/17 23:30 100 01/23/17 23:28 19 100 01/23/17 22:11 98.3 F 77 17 122/75 99 01/23/17 19:56 21 98 01/23/17 15:53 16 98 01/23/17 15:00 76 14 100/58 97 Intake and Output 01/23/17 01/24/17 01/24/17 23:59 07:59 15:59 Intake Total 360 / 360 Output Total 300 / 300 395 / 395 Balance -300 / -300 -35 / -35 Intake: Oral 360 / 360 Output: Urine 300 / 300 395 / 395 Other: Meal Breakfast Percent of Meal Consumed 100% Weight 95.4 kg Blood Glucose* 176 127 255 Patient Weight 01/24/17 23:59 Weight 95.4 kg - General Appearance Exam: NAD EENT: Present: ATNC, mucous membranes moist Neck: Present: no JVD, supple Respiratory: Present: clear Cardiology: Present: no edema, normal S1, normal S2 Gastrointestinal: Present: no tenderness, no guarding Integumentary: Present: warm and dry Neurologic: Present: no focal deficit Musculoskeletal: Present: no deformities Psychiatric: Present: mood/affect appropriate, cooperative - Lab 01/24/17 05:33 01/24/17 05:33 Most recent lab results ABG pH 7.42 pH Units (7.32-7.45) 01/20/17 08:17 ABG pCO2 40 mmHg (35-45) 01/20/17 08:17 ABG pO2 59 mmHg (85-104) L 01/20/17 08:17 ABG HCO3 25.9 mEQ/L (21-27) 01/20/17 08:17 ABG O2 Saturation 91 % (95-98) L 01/20/17 08:17 Calcium 8.8 mg/dL (8.6-10.8) 01/24/17 05:33 Phosphorus 3.2 mg/dL (2.3-4.7) 01/24/17 05:33 Magnesium 1.6 mg/dL (1.6-2.6) 01/24/17 05:33 Urine Creatinine 40 mg/dL 01/22/17 14:17 Urine Sodium 48.0 mEq/L 01/22/17 14:17 Consult Discharge Plan - Plan Additional Instructions: Wound care- Cleanse midline with soap and water in the shower, pack open areas X 2 with 1/4 inch plain gauze, cover with dry 4X4 gauze and tape to secure daily. Referrals: Sincere López MD [Partnered Physician] - 02/02/17 9:00 am ([facility] ) [facility] Care [facility] - 01/30/17 3:00 pm
--- NOTE | 2017-01-24 14:31 | Discharge Summary ---
Date of Encounter: 01/24/17 Time of Encounter: 11:05 - Discharge Diagnosis (1) Cellulitis Priority: Primary Status: Acute Qualifiers: Site of cellulitis: trunk Site of cellulitis of trunk: abdominal wall Qualified Code(s): L03.311 - Cellulitis of abdominal wall (2) Acute kidney injury Priority: Secondary Status: Acute (3) Congestive heart failure Priority: Secondary Status: Chronic Qualifiers: Congestive heart failure type: combined Congestive heart failure chronicity : chronic Qualified Code(s): I50.42 - Chronic combined systolic (congestive) and diastolic (congestive) heart failure (4) COPD (chronic obstructive pulmonary disease) Priority: Secondary Status: Chronic Qualifiers: COPD type: unspecified COPD Qualified Code(s): J44.9 - Chronic obstructive pulmonary disease, unspecified (5) Diabetes mellitus Priority: Secondary Status: Chronic Qualifiers: Diabetes mellitus type: type 2 Diabetes mellitus complication status: with circulatory complication Diabetes mellitus complication detail: with peripheral angiopathy without gangrene Diabetes mellitus prison insulin use : with prison use Qualified Code(s): E11.51 - Type 2 diabetes mellitus with diabetic peripheral angiopathy without gangrene; Z79.4 - retirement (current ) use of insulin (6) Tobacco abuse Priority: Secondary Status: Chronic (7) DVT prophylaxis Priority: Secondary Status: Acute - Discharge Medications Prescriptions: Carvedilol [Coreg] 25 mg PO BID #20 Doxycycline 100 mg PO BID #11 predniSONE [PredniSONE] 40 mg PO DAILY #2 tab Home Medications: Albuterol Sulfate [Albuterol Inhaler] 2 puff IH Q8H PRN 12/15/15 [History] Aspirin Enteric Coated [Aspirin EC] 81 mg PO DAILY 12/15/15 [History] Benzonatate [Tessalon] 100 mg PO Q4H PRN 12/15/15 [History] Budesonide/Formoterol 160/4.5 [Symbicort 160/4.5] 2 puff IH BIDR 12/15/15 [ History] Guaifenesin 400 mg PO DAILY PRN 12/15/15 [History] Ipratropium/Albuterol Neb [Duoneb] 3 ml IH Q6HR 12/15/15 [History] Isosorbide MONOnitrate (24 HR) [Imdur] 45 mg PO DAILY 12/15/15 [History] Metformin HCl [Glucophage] 500 mg PO BID 12/15/15 [History] Nortriptyline [Pamelor] 10 mg PO TID 12/15/15 [History] OxyCODONE ER (12 HR) [OxyCONTIN] 20 mg PO Q8H 12/15/15 [History] Pantoprazole Sodium 40 mg PO DAILY 12/15/15 [History] Terazosin HCl 2 mg PO HS 12/15/15 [History] Valsartan [Diovan] 40 mg PO BID 12/15/15 [History] Aloe Vera/Collagen [Aloe [place] Cleansing Foam] 1 appl TP AD PRN 01/15/17 [ History] Atorvastatin Calcium [Lipitor] 10 mg PO DAILY 01/15/17 [History] Clopidogrel [Plavix] 75 mg PO DAILY 01/15/17 [History] Furosemide [Lasix] 20 mg PO QAM 01/15/17 [History] Insulin NPH Human Isophane [Novolin N] 22 unit SQ QAM 01/15/17 [History] Insulin NPH Human Isophane [Novolin N] 27 unit SQ QPM 01/15/17 [History] L. Acidophilus/Pectin, [place] [Acidophilus Probiotic Capsule] 1 cap PO DAILY [History] Lisinopril 2.5 mg PO DAILY 01/15/17 [History] Loratadine [Allergy Relief] 10 mg PO DAILY 01/15/17 [History] Nitroglycerin [Nitrostat] 0.4 mg SL AD PRN 01/15/17 [History] Spironolactone [Aldactone] 12.5 mg PO DAILY 01/15/17 [History] Carvedilol [Coreg] 25 mg PO BID #20 01/24/17 [Rx] Doxycycline 100 mg PO BID #11 01/24/17 [Rx] predniSONE [PredniSONE] 40 mg PO DAILY #2 tab 01/24/17 [Rx] Allergies/Adverse Reactions: Allergies iodine Allergy (Verified 12/15/15 11:22) Hives TOPICAL IODINE/ PT IS OK WITH [id number] FOR CTA'S ondansetron [From Zofran (as hydrochloride)] Allergy (Verified 01/15/17 11:38) Hives Date of admission: 01/15/17 15:21 [facility] Consults: 01/20/17 10:42 Consult to Requisition Approver [CONS] Routine Reason for SW Consult: Patient will need home health at discharge for daily wound packing. Patient will need approval for wound care follow-up through [facility]- need authorization- Fax medical records to Nilda at the [facility] and they will need to Fax authorization # to Helene at [facility] [phone]. 01/22/17 10:19 Consult to Nephrology [CONS] Routine Consulting Provider: [facility]ney Kait/SANDHYA/PHILIP/DIA Reason for Consult: BO Call Completed: Yes Discharging clinician: [place] Anticipated date of discharge: 01/24/17 - Patient Status Disposition: Home Health Service Condition: Fair Functional capacity at discharge: uses cane/walker Overall status at discharge: patient is back to baseline - Discharge Instructions Follow Up With: Sincere López MD [Partnered Physician] - 02/02/17 9:00 am ([facility]- ) [place],[facility] [Primary Care Provider] - 01/30/17 3:00 pm Additional Instructions: Please follow up with your primary care physician within five days after your discharge from the hospital. Please follow up with wound care clinic (Dr. López) on February 02, 2017. Please follow up with nephrology within one week after your discharge from the hospital. Please obtain the prescribed lab work prior to your appointment with your animal ride manager. Please continue the oral antibiotic as prescribed. last day of antibiotic: Please continue prednisone as prescribed for two more days. Please continue to hold Lasix, Spironolactone, Valsartan, and Lisinopril until your follow up appointment with the animal ride manager. Please consult the animal ride manager in regards to restarting these medications. Your home dose of Carvedilol has been decreased to 25mg twice a day. Please closely monitor your blood pressure and heart rate at home. If your systolic blood pressure remains>140 despite taking 25mg of carvedilol, you may restart your home dose of Carvedilol 50mg twice a day. This medication was initially placed on hold because you were noted to have low blood pressure during your admission to the hospital. Please resume your other home medications as prescribed by your primary care physician. Wound care instructions as per surgery: Cleanse midline with soap and water in the shower, pack open areas X 2 with 1/4 inch plain gauze, cover with dry 4X4 gauze and tape to secure daily. - Diet and Activity Activity: as per physical therapy, wear oxygen at all times Diet: diabetic diet, low salt diet Hospital course: Mr. Barcenas is a 76 year old male with PMH of COPD on LTOT, CAD, DM, HTN, s/p colectomy and colostomy, s/p left BKA who was admitted for abd wall cellulitis. He was seen by surgery and underwent I&D. His abx therapy was de-escalated as per wound culture reports. His hospital course was complicated with hypotension and BO. His home antihypertensives were placed on hold and gradually restarted as his BP allowed. He was also noted to have BO likely secondary to vancomycin toxicity. Vancomycin was discontinued. Pt was evaluated by animal ride manager. He was also noted to have acute respiratory distress secondary to COPD exacerbation. He was started on systemic steroids and bronchodilator therapy. He responded appropriately to therapy and is back to his baseline respiratory status. Patient has home health services and wishes to go back home and continue with the home health. He is hemodynamically stable and will be discharged to home with home health services. Pt demonstrates understanding of his diagnosis and agrees with his discharge care and plan. - Time Spent with Patient Total time spent providing and/or coordinating discharge services: Greater than 30 minutes - Constitutional Vitals: Temp Pulse Resp BP Pulse Ox 97.9 F 117 18 134/83 97 01/24/17 11:34 01/24/17 11:34 01/24/17 11:34 01/24/17 11:34 01/24/17 11:34 General appearance: Present: cooperative, A&O X 3, no acute distress, answers questions appropriately - Head Head exam: Present: atraumatic, normocephalic - Respiratory Respiratory exam: Present: CTAB. Absent: accessory muscle use, rales, rhonchi, wheezes - Cardiovascular Cardiovascular exam: Present: RRR, +S1, +S2. Absent: diastolic murmur, gallop, rubs, systolic murmur - GI/Abdominal GI/Abdominal exam: Present: normal bowel sounds, soft, no peritoneal signs. Absent: distended, tenderness Additional comments: RLQ colostomy bag midline dressing intact - Extremities Exam Extremities exam: Present: warm, radial pulses palpable and symetrical. Absent : calf tenderness, cyanotic, pedal edema Additional comments: s/p left BKA - Neurological Exam Neurological exam: Present: oriented X3, no focal deficits. Absent: pronater drift, facial droop, speech deficit - Psychiatric Psychiatric exam: Present: normal affect, normal mood
[2017-01-24 14:39] VITALS: BP 104/70
--- NOTE | 2017-01-24 14:44 | Physician Discharge Referral ---
Home Health/Hosp Referral Info Transfer to: Home Health Provider in Charge Post Discharge: PCP - Diagnosis (1) Cellulitis Priority: Primary Status: Acute (2) Acute kidney injury Priority: Secondary Status: Acute (3) Congestive heart failure Priority: Secondary Status: Chronic (4) COPD (chronic obstructive pulmonary disease) Priority: Secondary Status: Chronic (5) Diabetes mellitus Priority: Secondary Status: Chronic (6) Tobacco abuse Priority: Secondary Status: Chronic (7) DVT prophylaxis Priority: Secondary Status: Acute - Respiratory Orders Smoking Cessation: Smoking cessation has been advised. For more information, call the [place] Tobacco Quit Line at 8-171-TCNBNOW. - Services Needed Following services are medically necessary services: Nursing, Home Health Aide, Physical Therapy, Occupational Therapy - Transfer Medications Prescriptions: Carvedilol [Coreg] 25 mg PO BID #20 Doxycycline 100 mg PO BID #11 predniSONE [PredniSONE] 40 mg PO DAILY #2 tab Home Medications: Albuterol Sulfate [Albuterol Inhaler] 2 puff IH Q8H PRN 12/15/15 [History] Aspirin Enteric Coated [Aspirin EC] 81 mg PO DAILY 12/15/15 [History] Benzonatate [Tessalon] 100 mg PO Q4H PRN 12/15/15 [History] Budesonide/Formoterol 160/4.5 [Symbicort 160/4.5] 2 puff IH BIDR 12/15/15 [ History] Guaifenesin 400 mg PO DAILY PRN 12/15/15 [History] Ipratropium/Albuterol Neb [Duoneb] 3 ml IH Q6HR 12/15/15 [History] Isosorbide MONOnitrate (24 HR) [Imdur] 45 mg PO DAILY 12/15/15 [History] Metformin HCl [Glucophage] 500 mg PO BID 12/15/15 [History] Nortriptyline [Pamelor] 10 mg PO TID 12/15/15 [History] OxyCODONE ER (12 HR) [OxyCONTIN] 20 mg PO Q8H 12/15/15 [History] Pantoprazole Sodium 40 mg PO DAILY 12/15/15 [History] Terazosin HCl 2 mg PO HS 12/15/15 [History] Valsartan [Diovan] 40 mg PO BID 12/15/15 [History] Aloe Vera/Collagen [Aloe [place] Cleansing Foam] 1 appl TP AD PRN 01/15/17 [ History] Atorvastatin Calcium [Lipitor] 10 mg PO DAILY 01/15/17 [History] Clopidogrel [Plavix] 75 mg PO DAILY 01/15/17 [History] Furosemide [Lasix] 20 mg PO QAM 01/15/17 [History] Insulin NPH Human Isophane [Novolin N] 22 unit SQ QAM 01/15/17 [History] Insulin NPH Human Isophane [Novolin N] 27 unit SQ QPM 01/15/17 [History] L. Acidophilus/Pectin, [place] [Acidophilus Probiotic Capsule] 1 cap PO DAILY [History] Lisinopril 2.5 mg PO DAILY 01/15/17 [History] Loratadine [Allergy Relief] 10 mg PO DAILY 01/15/17 [History] Nitroglycerin [Nitrostat] 0.4 mg SL AD PRN 01/15/17 [History] Spironolactone [Aldactone] 12.5 mg PO DAILY 01/15/17 [History] Carvedilol [Coreg] 25 mg PO BID #20 01/24/17 [Rx] Doxycycline 100 mg PO BID #11 01/24/17 [Rx] predniSONE [PredniSONE] 40 mg PO DAILY #2 tab 01/24/17 [Rx] Allergies/Adverse Reactions: Allergies iodine Allergy (Verified 12/15/15 11:22) Hives TOPICAL IODINE/ PT IS OK WITH [id number] FOR CTA'S ondansetron [From Zofran (as hydrochloride)] Allergy (Verified 01/15/17 11:38) Hives Certification: Further, I certify that my clinical findings support that this patient is homebound (i.e. absences from home require considerable and taxing effort and are for medical reasons or rastafari services or infrequently or short duration when for other reasons) because: Homebound Reason: Patient requires assistance of a person or device to safely leave home Attestation: My signature below is to certify that this patient is under my care and that I, or nurse practitioner, or a physician's assistant printer floor covering working with me, has a face-to -face encounter with this patient.
== END 2017-01-24 16:27 | disposition home health service (06) | DRG 919 ==
LOC: EMEROO 10:18 → SUATTDRO 15:21 → 2NENU 15:21
PROVIDERS: ADMIT Internal Medicine; ATTEND Internal Medicine

== ENCOUNTER 2019-03-05 17:08 | Inpatient (IN) ==
[~2019-03-05 17:08] MED LIST: *HR* Amiodarone 150 MG/3 ML VIAL IVPB ONE; *HR* Amiodarone Premix 360 MG/200 ML BAG IVC ONE; *HR* Etomidate 20 MG/10 ML AMPUL IVP ONE; *HR* Magnesium Sulfate 2 GM/50 ML PIGGYBACK IVPB ONE; *HR* Midazolam HCl 2 MG/2 ML VIAL IV ONE; *HR* Midazolam HCl 5 MG/5 ML VIAL IVP ONE
[2019-03-05] MEDS ORDERED: *HR* FentaNYL (PF) 100 MCG/2 ML VIAL ONE ×2 (17:28→17:58)
[2019-03-05] MEDS: Amiodarone Premix 360 MG/200 ML BAG IVC SCH ×2 (17:45→23:36)
[2019-03-05] MEDS ORDERED: 0.9 % Sodium Chloride 1,000 ML ONE ×5 (17:46→18:56)
[2019-03-05] MEDS ORDERED: 0.9 % Sodium Chloride 500 ML ONE (17:46)
[2019-03-05] MEDS ORDERED: *HR* FentaNYL (PF) 1,000 MCG/20 ML VIAL ONE (17:58)
[2019-03-05] MEDS ORDERED: 0.9 % Sodium Chloride 1,000 ML IVC ONE (18:10)
[2019-03-05] MEDS ORDERED: *HR* Midazolam HCl 2 MG/2 ML VIAL IVP ONE (18:10)
[2019-03-05] MEDS: FentaNYL (PF) 1,000 MCG in 0.9 % Sodium Chloride 80 ML IVC SCH (18:15)
[2019-03-05] MEDS ORDERED: *HR* Norepinephrine 4 MG/4 ML VIAL IVC ONE (18:16)
[2019-03-05] MEDS ORDERED: D5% in Water 250 ML ONE (18:16)
[2019-03-05] MEDS ORDERED: Verapamil 5 MG/2 ML VIAL ONE (18:27)
[2019-03-05] MEDS ORDERED: *HR* Heparin 10,000 UNIT/10 ML VIAL ONE (18:28)
[2019-03-05] MEDS ORDERED: Heparin 1,000 UNITS/500 mL 500 ML ONE (18:28)
[2019-03-05] MEDS ORDERED: Nitroglycerin 1,000 MCG/10 ML VIAL IV ONE (18:28)
[2019-03-05 18:31] LABS: Basophils # 0.1 K/mcL (0.0-0.2); Basophils % 0.6 %; Eosinophils # 0.5 K/mcL (0.0-0.6); Eosinophils % 3.1 %; Hematocrit 34.3 % (37.5-50.1); Hemoglobin 11.5 g/dL (12.9-16.9); Immature Granulocytes % 2.3 % (0-4); Lymphocytes # 2.4 K/mcL (0.6-4.6); Lymphocytes % 14.3 %; Mean Corpuscular HGB Conc 33.5 g/dL (31.6-35.5); Mean Corpuscular Hemoglobin 33.1 pg (28.0-33.3); Mean Corpuscular Volume 98.8 fL (83.0-100.0); Mean Platelet Volume 9.5 fL (9.4-12.4); Monocytes # 0.7 K/mcL (0.0-1.3); Monocytes % 4.3 %; Neutrophils # 12.8 K/mcL (1.6-8.9); Platelet Count 204 K/mcL (140-400); Red Blood Count 3.47 M/mcL (4.19-5.50); Red Cell Distribution Width 12.3 % (11.5-14.5); Segmented Neutrophils % 75.4 %; White Blood Count 16.9 K/mcL (4.3-11.1)
[2019-03-05] MEDS ORDERED: Iopamidol 125 ML INFUS..BTL ONE (18:32)
--- NOTE | 2019-03-05 18:33 | Emergency Department Note ---
Disposition Clinical Impression: Ventricular tachycardia Disposition: Still a Patient Condition: Critical [facility]: [facility] Care Provider[facility] - Time of Disposition: 18:33 General Adult HPI - General Chief complaint: ED Chest Pain Stated complaint: cp Time Seen by Provider: 03/05/19 17:16 Source: patient, EMS Limitations: no limitations - History of Present Illness Pain Scale: 10 - Related Data Home Medications Medication Instructions Recorded Confirmed Albuterol Sulfate [Proventil 2 puff IH Q8H PRN 12/15/15 02/16/17 Inhaler] Aspirin Enteric Coated [Aspirin EC] 81 mg PO DAILY 12/15/15 02/16/17 Benzonatate [Tessalon] 100 mg PO Q4H PRN 12/15/15 02/16/17 Budesonide/Formoterol 160/4.5 2 puff IH BIDR 12/15/15 02/16/17 [Symbicort 160/4.5] Guaifenesin 400 mg PO DAILY PRN 12/15/15 02/16/17 Ipratropium/Albuterol Neb [Duoneb] 3 ml IH Q6HR 12/15/15 02/16/17 Isosorbide MONOnitrate (24 HR) 15 mg PO DAILY 12/15/15 02/16/17 [Imdur] Nortriptyline [Pamelor] 10 mg PO TID 12/15/15 02/16/17 Pantoprazole Sodium 40 mg PO DAILY 12/15/15 02/16/17 Terazosin HCl 2 mg PO HS 12/15/15 02/16/17 Valsartan [Diovan] 40 mg PO BID 12/15/15 02/16/17 Aloe Vera/Collagen [Aloe [place] 1 appl TP AD PRN 01/15/17 02/16/17 Cleansing Foam] Atorvastatin Calcium [Lipitor] 10 mg PO DAILY 01/15/17 02/16/17 Clopidogrel [Plavix] 75 mg PO DAILY 01/15/17 02/16/17 Furosemide [Lasix] 20 mg PO QAM 01/15/17 02/16/17 Insulin NPH Human Isophane 20 unit SQ QAM 01/15/17 02/16/17 [Novolin N] Insulin NPH Human Isophane 25 unit SQ QPM 01/15/17 02/16/17 [Novolin N] L. Acidophilus/Pectin, [place] 1 cap PO DAILY 01/15/17 02/16/17 [Acidophilus Probiotic Capsule] Loratadine [Allergy Relief] 10 mg PO DAILY 01/15/17 02/16/17 Nitroglycerin [Nitrostat] 0.4 mg SL AD PRN 01/15/17 02/16/17 Magnesium Oxide [Magnesium] 400 mg PO DAILY 02/16/17 02/16/17 Previous Rx's Medication Instructions Recorded Carvedilol [Coreg] 25 mg PO BID #20 01/24/17 Allergies Allergy/AdvReac Type Severity Reaction Status Date / Time iodine Allergy Hives Verified 03/05/19 18:16 ondansetron Allergy Hives Verified 03/05/19 18:16 [From Zofran (as hydrochloride)] Past Medical History - Past Medical History Medical history: Reports: arthritis, asthma, cardiomyopathy, COPD, coronary artery disease, diabetes, GERD, hyperlipidemia, hypertension, myocardial infarction, osteoporosis, peripheral artery disease, venous stasis, other Surgical history: Reports: angioplasty/stent, colostomy, coronary bypass (CABG), herniorrhaphy, other Psychiatric history: Reports: no psych history - Social History Smoking Status: Current every day smoker Smokeless Tobacco Status: No Alcohol use: Reports: none Drug use: Reports: none Physical Exam - General Limitations: no limitations General appearance: alert Course Vital Signs Temperature 98.3 F 03/05/19 17:12 Pulse Rate 168 03/05/19 17:12 Respiratory Rate 26 03/05/19 17:12 Blood Pressure 100/82 03/05/19 17:12 O2 Sat by Pulse Oximetry 100 03/05/19 17:12 Temperature 98.3 F 03/05/19 17:12 Pulse Rate 168 03/05/19 17:12 Respiratory Rate 26 03/05/19 18:00 Blood Pressure 77/64 03/05/19 18:00 O2 Sat by Pulse Oximetry 100 03/05/19 18:00 Oxygen Delivery Oxygen Delivery Room Air Attestation Statement - Attestation Attestation: I reviewed the residents documentation and agree with the residents assessment and plan of care. I have personally had face to face time with the patient. (Brief History, Brief Exam, and MDM) I personally supervised and was present for the hinojosa/critical portions of the following procedures completed by the resident: EKG, bedside ECHO 78 year old male presents to the ed in VTA at a rate of 170s. Danyell benz was seen by me and REsident Dr. Moses. initially danyell woke up with chest pain tht radaites into his neck and back and has had a histroy of vtach in the past and required chemical conversion without electrical conversion and he does not have a pacemaker. Danyell appears to be i vtach now at ar ate o 160s and was not initially hypotensive and was given amniodarone 150mg but now is hypotensive and will require electrical cardioversion , at this time adnyell was signed out to Dr. Marc Randolph because I was alerted to another critical patient that became hypotensive, hypoxic and altered of which I had to emergently attend too. Dr. Marc Randolph has resumed care after this point and please refer for his note for the remainder of this patients course
--- NOTE | 2019-03-05 18:34 | Emergency Department Note ---
Disposition Clinical Impression: Ventricular tachycardia, Cardiac arrest Disposition: Admitted As Inpatient Condition: Critical Time of Disposition: 19:54 General Adult HPI - General Chief complaint: ED Chest Pain Stated complaint: cp Time Seen by Provider: 03/05/19 17:16 Source: patient, EMS Mode of arrival: EMS Limitations: no limitations Nursing Notes Reviewed: Yes Vital Signs Reviewed: Yes - History of Present Illness HPI Narrative: 78-year-old male presenting for palpitations. According to the patient around 9:30 this morning he started having severe chest pain and palpitations with some radiation to his back. He states this happened once before and was admitted to the hospital but did not require any cardioversion. He states he does take a blood thinner but is unsure what it is. He has had a previous CABG. No further history of present illness was able to be obtained due to the critical nature the patient. Pain Scale: 10 - Related Data Home Medications Medication Instructions Recorded Confirmed Albuterol Sulfate [Proventil 2 puff IH Q8H PRN 12/15/15 02/16/17 Inhaler] Aspirin Enteric Coated [Aspirin EC] 81 mg PO DAILY 12/15/15 02/16/17 Benzonatate [Tessalon] 100 mg PO Q4H PRN 12/15/15 02/16/17 Budesonide/Formoterol 160/4.5 2 puff IH BIDR 12/15/15 02/16/17 [Symbicort 160/4.5] Guaifenesin 400 mg PO DAILY PRN 12/15/15 02/16/17 Ipratropium/Albuterol Neb [Duoneb] 3 ml IH Q6HR 12/15/15 02/16/17 Isosorbide MONOnitrate (24 HR) 15 mg PO DAILY 12/15/15 02/16/17 [Imdur] Nortriptyline [Pamelor] 10 mg PO TID 12/15/15 02/16/17 Pantoprazole Sodium 40 mg PO DAILY 12/15/15 02/16/17 Terazosin HCl 2 mg PO HS 12/15/15 02/16/17 Valsartan [Diovan] 40 mg PO BID 12/15/15 02/16/17 Aloe Vera/Collagen [Aloe [place] 1 appl TP AD PRN 01/15/17 02/16/17 Cleansing Foam] Atorvastatin Calcium [Lipitor] 10 mg PO DAILY 01/15/17 02/16/17 Clopidogrel [Plavix] 75 mg PO DAILY 01/15/17 02/16/17 Furosemide [Lasix] 20 mg PO QAM 01/15/17 02/16/17 Insulin NPH Human Isophane 20 unit SQ QAM 01/15/17 02/16/17 [Novolin N] Insulin NPH Human Isophane 25 unit SQ QPM 01/15/17 02/16/17 [Novolin N] L. Acidophilus/Pectin, [place] 1 cap PO DAILY 01/15/17 02/16/17 [Acidophilus Probiotic Capsule] Loratadine [Allergy Relief] 10 mg PO DAILY 01/15/17 02/16/17 Nitroglycerin [Nitrostat] 0.4 mg SL AD PRN 01/15/17 02/16/17 Magnesium Oxide [Magnesium] 400 mg PO DAILY 02/16/17 02/16/17 Previous Rx's Medication Instructions Recorded Carvedilol [Coreg] 25 mg PO BID #20 01/24/17 Allergies Allergy/AdvReac Type Severity Reaction Status Date / Time iodine Allergy Hives Verified 03/05/19 18:16 ondansetron Allergy Hives Verified 03/05/19 18:16 [From Zofran (as hydrochloride)] Limitations: ROS unobtainable due to patients medical condition Past Medical History - Past Medical History Attestation: Yes The following information was validated with the patient. Medical history: Reports: arthritis, asthma, cardiomyopathy, COPD, coronary artery disease, diabetes, GERD, hyperlipidemia, hypertension, myocardial infarction, osteoporosis, peripheral artery disease, venous stasis, other Surgical history: Reports: angioplasty/stent, colostomy, coronary bypass (CABG), herniorrhaphy, other Psychiatric history: Reports: no psych history - Social History Smoking Status: Current every day smoker Smokeless Tobacco Status: No Alcohol use: Reports: none Drug use: Reports: none Physical Exam - General Limitations: no limitations General appearance: alert, in distress - Head Head exam: atraumatic, normocephalic, normal inspection - Eye Eye exam: Absent: scleral icterus - Chest Chest inspection: Present: symmetric chest wall rise - Respiratory Respiratory exam: Present: normal lung sounds bilaterally - Cardiovascular Cardiovascular exam: Present: tachycardia - Abdominal Exam Abdominal exam: Present: soft. Absent: distention - Extremities Exam Extremities exam: Present: other (Left lower extremity amputation) - Psychiatric Psychiatric exam: Present: anxious Course Course Narrative: 78-year-old male presenting in V. tach. Heart rate in the 180s to 200s. He is complaining of severe chest pain radiating into his back. Initial blood pressure within normal limits. Second and third blood pressures concerning for hypotension. Decision was made to cardiovert at that time. Patient was cardioverted 3 after receiving 4 mg of Versed without any conversion. After the third cardioversion patient went pulseless. CPR was immediately started. Patient was coded for approximately 3 rounds. Was given 2 g of magnesium due to a concerning EKG for torsades. Patient was defibrillated multiple times as well without any response. Decision was made to complete a double defibrillation. After double defibrillation with the amiodarone drip going patient had return of spontaneous circulation. During this patient was intubated. Patient's blood pressure labile therefore 2 L of fluid was put on a pressure bag and patient responded appropriately. Patient was cooled per ACLS criteria for V. tach arrest. We spoke with the overhead cleaner maintainer who agreed to take the patient to the Program Rep. Chest x-ray was completed showing appropriate placement of the ET tube. Patient's indirect Program Rep and will be sent to ICU for further management. Vital Signs Temperature 98.3 F 03/05/19 17:12 Pulse Rate 168 03/05/19 17:12 Respiratory Rate 26 03/05/19 17:12 Blood Pressure 100/82 03/05/19 17:12 O2 Sat by Pulse Oximetry 100 03/05/19 17:12 Temperature 98.3 F 03/05/19 17:12 Pulse Rate 98 03/05/19 18:20 Respiratory Rate 20 03/05/19 18:53 Blood Pressure 115/74 03/05/19 18:53 O2 Sat by Pulse Oximetry 100 03/05/19 18:20 Oxygen Delivery Oxygen Delivery Ventilator Procedures - Intubation Time out performed: Yes sedative: none Laryngoscope: fiber optic video scope ET Tube Size: 7 ET Tube Uncuffed: No Tube Secured Depth (cm): 25 Tube Secured Location: lips Tube Placement Confirmation: visualized tube passing through cords, equal breath sounds bilaterally, no breath sounds over epigastrium, confirmation by capnometry Patient Tolerated Procedure: well Intubation Complications: none Medical Decision Making - Lab Data Result diagrams: 03/05/19 18:16 03/05/19 18:16 Lab Results 03/05/19 03/05/19 03/05/19 Range/Units 18:16 18:16 18:16 WBC 16.9 H (4.3-11.1) K/mcL RBC 3.47 L (4.19-5.50) M/mcL Hgb 11.5 L (12.9-16.9) g/dL Hct 34.3 L (37.5-50.1) % MCV 98.8 (83.0-100.0) fL MCH 33.1 (28.0-33.3) pg MCHC 33.5 (31.6-35.5) g/dL RDW 12.3 (11.5-14.5) % Plt Count 204 (140-400) K/mcL MPV 9.5 (9.4-12.4) fL Immature Gran % 2.3 (0-4) % Seg Neutrophils % 75.4 % Lymphocytes % 14.3 % Monocytes % 4.3 % Eosinophils % 3.1 % Basophils % 0.6 % Neutrophils # 12.8 H (1.6-8.9) K/mcL Lymphocytes # 2.4 (0.6-4.6) K/mcL Monocytes # 0.7 (0.0-1.3) K/mcL Eosinophils # 0.5 (0.0-0.6) K/mcL Basophils # 0.1 (0.0-0.2) K/mcL PT (9.4-12.1) Seconds INR APTT (26.0-36.0) Seconds ABG pH (7.32-7.45) pH Units ABG pCO2 (35-45) mmHg ABG pO2 (85-104) mmHg ABG HCO3 (21-27) mEq/L ABG Total CO2 (20-26) mEq/L ABG O2 Saturation (95-98) % ABG Base Excess (-2 to 3) mEq/L Sodium 135 L (136-145) mEq/L Potassium 4.3 (3.5-5.1) mEq/L Chloride 100 (98-107) mEq/L Carbon Dioxide 17 L (23-29) mEq/L BUN 28 H (8-23) mg/dL Creatinine 1.83 H (0.70-1.30) mg/dL Est GFR ( Amer) 44 L (> 60) Est GFR (Non-Af Amer) 36 L (> 60) BUN/Creatinine Ratio 15 (6-26) Glucose 392 H (70-105) mg/dL Calculated Osmolality 302 H (280-300) Lactic Acid 5.6 H* (0.5-2.2) mmol/L Calcium 9.3 (8.6-10.3) mg/dL Total Bilirubin 0.5 (0.3-1.0) mg/dL Direct Bilirubin 0.1 (0.0-0.2) mg/dL Indirect Bilirubin 0.4 (0.0-1.2) mg/dL AST 142 H (13-39) Units/L ALT 166 H (7-52) Units/L Alkaline Phosphatase 82 (34-104) Units/L Creatine Kinase 90 (30-223) Units/L Troponin I 0.42 H* (< 0.04) ng/mL B-Natriuretic Peptide (Less than 100) pg/mL Serum Total Protein 5.6 L (6.4-8.9) g/dL Albumin 3.5 (3.5-5.7) g/dL Globulin 2.1 L (2.4-3.5) g/dL Albumin/Globulin Ratio 1.7 (1.1-2.2) 03/05/19 03/05/19 03/05/19 Range/Units 18:16 18:16 18:46 WBC (4.3-11.1) K/mcL RBC (4.19-5.50) M/mcL Hgb (12.9-16.9) g/dL Hct (37.5-50.1) % MCV (83.0-100.0) fL MCH (28.0-33.3) pg MCHC (31.6-35.5) g/dL RDW (11.5-14.5) % Plt Count (140-400) K/mcL MPV (9.4-12.4) fL Immature Gran % (0-4) % Seg Neutrophils % % Lymphocytes % % Monocytes % % Eosinophils % % Basophils % % Neutrophils # (1.6-8.9) K/mcL Lymphocytes # (0.6-4.6) K/mcL Monocytes # (0.0-1.3) K/mcL Eosinophils # (0.0-0.6) K/mcL Basophils # (0.0-0.2) K/mcL PT 13.3 H (9.4-12.1) Seconds INR 1.2 APTT 39.4 H (26.0-36.0) Seconds ABG pH 7.23 L (7.32-7.45) pH Units ABG pCO2 40 (35-45) mmHg ABG pO2 570 H (85-104) mmHg ABG HCO3 17 L (21-27) mEq/L ABG Total CO2 18 L (20-26) mEq/L ABG O2 Saturation 100 H (95-98) % ABG Base Excess -10 L (-2 to 3) mEq/L Sodium (136-145) mEq/L Potassium (3.5-5.1) mEq/L Chloride (98-107) mEq/L Carbon Dioxide (23-29) mEq/L BUN (8-23) mg/dL Creatinine (0.70-1.30) mg/dL Est GFR ( Amer) (> 60) Est GFR (Non-Af Amer) (> 60) BUN/Creatinine Ratio (6-26) Glucose (70-105) mg/dL Calculated Osmolality (280-300) Lactic Acid (0.5-2.2) mmol/L Calcium (8.6-10.3) mg/dL Total Bilirubin (0.3-1.0) mg/dL Direct Bilirubin (0.0-0.2) mg/dL Indirect Bilirubin (0.0-1.2) mg/dL AST (13-39) Units/L ALT (7-52) Units/L Alkaline Phosphatase (34-104) Units/L Creatine Kinase (30-223) Units/L Troponin I (< 0.04) ng/mL B-Natriuretic Peptide 515 H (Less than 100) pg/mL Serum Total Protein (6.4-8.9) g/dL Albumin (3.5-5.7) g/dL Globulin (2.4-3.5) g/dL Albumin/Globulin Ratio (1.1-2.2) - EKG Data EKG #1 EKG attestation: Yes I reviewed and interpreted this EKG. EKG results narrative: Wide-complex tachycardia. 190 beats for minute. Concern for torsades. MD interval 88, QRS 17, QTC 526 EKG #2 EKG attestation: Yes I reviewed and interpreted this EKG. EKG results narrative: Sinus tachycardia. Right bundle branch block. 109 bpm. MD interval 124, QRS 164, QTC 551
[2019-03-05] MEDS ORDERED: methylPREDNISolone 125 MG/2 ML VIAL ONE (18:45)
[2019-03-05 18:50] LABS: ABG Base Excess -10 mEq/L (-2 to 3); ABG HCO3 17 mEq/L (21-27); ABG Oxygen Saturation 100 % (95-98); ABG PCO2 40 mmHg (35-45); ABG PH 7.23 pH Units (7.32-7.45); ABG PO2 570 mmHg (85-104); ABG TCO2 18 mEq/L (20-26)
[2019-03-05 18:53] LABS: Albumin 3.5 g/dL (3.5-5.7); Albumin/Globulin Ratio 1.7 (1.1-2.2); Bilirubin,Direct 0.1 mg/dL (0.0-0.2); Bilirubin,Indirect 0.4 mg/dL (0.0-1.2); Bilirubin,Total 0.5 mg/dL (0.3-1.0); Calcium 9.3 mg/dL (8.6-10.3); Globulin 2.1 g/dL (2.4-3.5); Potassium 4.3 mEq/L (3.5-5.1); Total Protein 5.6 g/dL (6.4-8.9)
[2019-03-05 18:57] LABS: INR 1.2; Prothrombin Time 13.3 Seconds (9.4-12.1); Troponin I 0.42 ng/mL (< 0.04)
--- NOTE | 2019-03-05 18:57 | Pre-Sedation Evaluation ---
Pre-sedation evaluation - Pre-sedation checklist Date of procedure: 03/05/19 Procedure: [facility] Recent Vitals: Last Vital Signs Temp 98.3 F 03/05/19 17:12 Pulse 173 03/05/19 17:31 Resp 26 03/05/19 18:00 BP 77/64 03/05/19 18:00 Pulse Ox 100 03/05/19 18:00 H&P (including ROS) documented in medical record: Yes Previous reaction to sedatives/anesthetics: No Dietary Status: unknown ASA Classification *see protocol: CLASS V-Morbid complications, operation only hope of survival, [id number] to any of the above to indicate emergent Plan of Care: Pt appropriate candidate for procedure/moderate/conscious sedation, Risks/benefits of procedure/sedation discussed w/ patient/family, If not NPO; Risk of intake outweiged by necessity to perform procedure Cardiac Registry (Cardio Only) - Functional Capacity Functional Capacity: Unknown - Clincal Frailty Scale Clinical Frailty Scale: Mildly Frail
[2019-03-05 18:59] LABS: Activated Partial Thrombo Time 39.4 Seconds (26.0-36.0)
--- NOTE | 2019-03-05 19:01 | Cardiology History & Physical ---
Date of Encounter: 03/06/19 Time of Encounter: 19:00 Assessment and Plan (1) Cardiac arrest Current Visit: Yes Status: Resolved Patient sp VT/VF arrest x~25 minutes per ED with ROSC. Discussed therapeutic hypothermia with ED who would initiate it. Emergent LHC to determine if ischemic cause of his VT / VF arrest. Amiodarone drip. EF assessment Total critical care time: 90 minutes The assessment and plan as outlined above was discussed with the patient and/or family members who expressed understanding and agreement. All questions were answered. (2) CAD (coronary artery disease) Current Visit: No Status: Chronic sp CABG and redo. Continue medical management. The assessment and plan as outlined above was discussed with the patient and/or family members who expressed understanding and agreement. All questions were answered. Qualifiers: Coronary Disease-Associated Artery/Lesion type: bypass graft [place] vs. transplanted heart: [place] heart Associated angina: with unstable angina Qualified Code(s): I25.700 - Atherosclerosis of coronary artery bypass graft(s), unspecified, with unstable angina pectoris History of Present Illness Chief complaint: chest pain HPI: Mr. Barcenas is a 78 year old male with history of CAD sp CABG and redo 2001, ischemic CM with last EF 45%, COPD presenting with chest pain and weakness per ED. Per initial conversation with ED, while in ED went into stable VT and was synchronized cardioverted but subsequently went into pulseless VT / VF requiring ACLS for approximately 25 minutes. ROSC achieved. Please review ED notes for complete events as there was an ED handoff due to multiple patients in cardiac arrest. Past Med Surg Social Fam HX - Past Medical History Medical history: arthritis, asthma, cardiomyopathy, COPD, coronary artery disease, diabetes, GERD, hyperlipidemia, hypertension, myocardial infarction, osteoporosis, peripheral artery disease, venous stasis, other Additional medical history: peripheral vascular disease Psychiatric history: no psych history - Past Surgical History Surgical History: angioplasty/stent, colostomy, coronary bypass (CABG), herniorrhaphy, other Additional surgical history: left below knee amputation - Social History Smoking Status: Current every day smoker Smokeless Tobacco Status: No Alcohol use: none Drug use: none - Family History Father Family Member Ethnicity: Non- Living Status: Hx Family Respiratory Disorders: Yes Hx Family Cancer: Yes Medications and Allergies Albuterol Sulfate [Proventil Inhaler] 2 puff IH Q8H PRN 12/15/15 [History] Benzonatate [Tessalon] 100 mg PO Q4H PRN 12/15/15 [History] Budesonide/Formoterol 160/4.5 [Symbicort 160/4.5] 2 puff IH BIDR 12/15/15 [History] Guaifenesin 400 mg PO Q12H PRN 12/15/15 [History] Ipratropium/Albuterol Neb [Duoneb] 3 ml IH Q6HR PRN 12/15/15 [History] Isosorbide MONOnitrate (24 HR) [Imdur] 30 mg PO DAILY 12/15/15 [History] Nortriptyline [Pamelor] 10 mg PO TID 12/15/15 [History] Pantoprazole Sodium 40 mg PO Q48H 12/15/15 [History] Terazosin HCl 4 mg PO HS 12/15/15 [History] Valsartan [Diovan] 40 mg PO BID 12/15/15 [History] Aloe Vera/Collagen [Aloe [place] [employer] Foam] 1 appl TP AD PRN 01/15/17 [History] Clopidogrel [Plavix] 75 mg PO DAILY 01/15/17 [History] Furosemide [Lasix] 20 mg PO QAM 01/15/17 [History] Insulin NPH Human Isophane [Novolin N] 23 unit SQ QAM 01/15/17 [History] Insulin NPH Human Isophane [Novolin N] 28 unit SQ QPM 01/15/17 [History] Loratadine [Allergy Relief] 10 mg PO DAILY 01/15/17 [History] Nitroglycerin [Nitrostat] 0.4 mg SL AD PRN 01/15/17 [History] Carvedilol [Coreg] 25 mg PO BID #20 01/24/17 [Rx] Magnesium Oxide [Magnesium] 400 mg PO BID 02/16/17 [History] Apixaban [Eliquis] 2.5 mg PO BID 03/06/19 [History] Atorvastatin [Lipitor] 40 mg PO HS 03/06/19 [History] Oxycodone HCl 20 mg PO TID PRN 03/06/19 [History] Tamsulosin HCl [Flomax] 0.4 mg PO DAILY 03/06/19 [History] raNITIdine HCl [Zantac] 150 mg PO Q48H 03/06/19 [History] Allergy/AdvReac Type Severity Reaction Status Date / Time iodine Allergy Hives Verified 03/06/19 10:25 ondansetron Allergy Hives Verified 03/06/19 10:25 [From Zofran (as hydrochloride)] ROS unobtainable: due to endotracheal tube, due to mental status All Systems Review: The remainder of the systems were reviewed and are negative Physical Examination Vital Signs, Last 4 Hours Temp Pulse Resp BP Pulse Ox 03/05/19 18:00 26 77/64 100 03/05/19 17:31 173 27 117/85 96 03/05/19 17:27 168 28 108/85 98 03/05/19 17:20 168 20 92/65 99 03/05/19 17:12 98.3 F 168 26 100/82 100 General: Other (intubated / sedated / distressed (receiving versed and fentanyl now)) HEENT: Atraumatic Neck: No JVD Cardiac: Other (tachy s1 s2) Lungs: Other (bl coarse bs) Neuro: Other (intubated / sedated) Abdomen: Soft Skin: No rashes noted on visualized skin Extremities: No Edema Results 03/06/19 03:50 03/06/19 03:50 Lab Results 03/05/19 03/05/19 18:16 18:16 WBC 16.9 H Hgb 11.5 L Hct 34.3 L Plt Count 204 Sodium 135 L Potassium 4.3 Chloride 100 Carbon Dioxide 17 L BUN 28 H Creatinine 1.83 H Glucose 392 H Calcium 9.3 Total Bilirubin 0.5 AST 142 H ALT 166 H Alkaline Phosphatase 82 Troponin I 0.42 H*
[2019-03-05] MEDS ORDERED: *HR* Midazolam HCl 5 MG/5 ML VIAL IVP ONE (19:07)
[2019-03-05] MEDS ORDERED: *HR* FentaNYL (PF) 250 MCG/5 ML VIAL ONE (19:07)
[2019-03-05] MEDS ORDERED: Amiodarone Premix 360 MG/200 ML BAG IVC ONE (19:09)
[2019-03-05] MEDS ORDERED: *HR* Midazolam HCl 2 MG/2 ML VIAL ONE (19:41)
[2019-03-05] MEDS ORDERED: Benzonatate 100 MG CAPSULE PO PRN (19:57)
[2019-03-05] MEDS ORDERED: Nitroglycerin 0.4 MG TAB.SUBL SL PRN (19:57)
--- NOTE | 2019-03-05 20:01 | Event Note ---
Date of Encounter: 03/05/19 Time of Encounter: 20:00 - Cardiology Event Note EF 20% JEAN LAD patent with collaterals to LCx distribution SVG RCA patent Severe andreafski CAD Continue amiodarone. Lifevest on discharge. Consult EP.
[2019-03-05] MEDS ORDERED: D5% in Water 1,000 ML IVC PRN (20:02)
[2019-03-05] MEDS ORDERED: *HR* Dextrose 50 % in Water (Syg) 50 ML SYRINGE IVP PRN (20:02)
[2019-03-05] MEDS ORDERED: Dextrose Gel 15 GM/37.5 ML TUBE PO PRN ×2 (20:02)
--- NOTE | 2019-03-05 20:18 | Invasive Diagnostic Lab Proc ---
Name: Jeevan Barcenas Date of Study: 03/05/2019 Date: 1940 Ht: 75.0in Medical Record#: [id number] Age: 78 Wt: 217.00lb Gender: Male BSA: 2.27 Order #: [id number] BMI: 27.12 Physicians Procedure Physician: Clem Tucker MD, [facility] Referring MD: Referring MD: Staff Name Position Time In Catie Molina RT (R) Monitor 07:08 PM Yung Mares RN Lamp Replacer 07:08 PM Mary Alice Estrada RT (R) Scrub 07:08 PM Procedures Performed Procedure L HRT ART/GRFT ANGIO INJECT SUPRVLVAORTAGRAM Pre-Procedure Checklist Informed consent is complete signed and on chart. H&P is on chart. ID band is on and ID verified with patient. Patient NPO for procedure The procedure was described for the patient and questions were answered. Blood Pressure: 164/92 ECG is on chart. Plan of Care Patient will tolerate the procedure without complications. Adequate level of comfort will be maintained. Hemodynamics will remain stable Patient will recover from procedure without complications. Respiratory function will be maintained. Cardiac rhythm will remain stable. Patient temperature will be maintained. Patient and/or family have verbalized understanding of the procedure. Patient Education Chief Complaint/Reason for Test: Cardiac Cath Developmental Category: Geriatric (65+ years) Developmentally Appropriate for Age: Yes Learning Barriers: Sedated Education Needs: Procedure Education Method: N/A Information Taught: Cardiac Cath Educational Evaluation: Other Note: patient intubated Intravenous Access Time IV Size Location DC'd Fluid/Drip Rate Units RN 06:46 PM 20g 1 1/" Patent On Arrival Rt Antecubital 0.9NaCl 50 ml/hr Yung Mares RN 07:13 PM 22g 1" Patent On Arrival Lt Antecubital Yung Mares RN Allergies IODINE SKIN PREP iodine ondansetron Vital Signs Time BP (mmHg) HR (bpm) O2 Sat. RR (bpm) LOC 07:10 PM / % 1 = Reflexes present/moves spontaneously 07:10 PM / % 1 = Reflexes present/moves spontaneously 07:31 PM / % 1 = Reflexes present/moves spontaneously 07:31 PM / % 2 = Responds to voice 07:09 PM 164 / 92 125 90 % 16 07:17 PM 164 / 88 105 100 % 16 07:22 PM 135 / 79 97 100 % 16 07:26 PM 128 / 71 94 100 % 16 07:31 PM 127 / 72 94 100 % 16 07:37 PM 134 / 76 91 100 % 16 07:41 PM 146 / 78 91 100 % 16 07:47 PM 137 / 77 91 100 % 16 07:51 PM 134 / 74 91 100 % 16 07:56 PM 144 / 83 94 100 % Procedural Medications Time Medication Dose Units Method Given By 07:12 PM Versed 2 mg Intravenous Yung Mares RN 07:12 PM Fentanyl 50 mcg Intravenous Yung Mares RN 07:12 PM Solumedrol 125 mg Intravenous Yung Mares RN 07:14 PM Versed 2 mg Intravenous Yung Mares RN 07:14 PM Fentanyl 50 mcg Intravenous Yung Mares RN 07:19 PM Lidocaine 2% 20 ml Subcutaneous Clem Tucker MD, [facility] 07:40 PM Versed 2 mg Intravenous Yung Mares RN 07:41 PM Fentanyl 50 mcg Intravenous Yung Mares RN 07:08 PM Amiodarone 1 mg/min Intravenous 07:08 PM Fentanyl 100 mcg/hr Intravenous 07:08 PM Versed 2 mg/hr Intravenous ASA Classification: Emergent Procedure: ASA score is assumed Stephanie Score Preprocedure Postprocedure Activity 1- Moves 2 extremities sustained head lift Activity 1- Moves 2 extremities sustained head lift Circulation 1- SBP+/= 20 - 50 points of pre-anesthetic level Circulation 1- SBP+/= 20 - 50 points of pre-anesthetic level Consciousness 1- Responds to verbal stimuli drowsy Consciousness 1- Responds to verbal stimuli drowsy O2 Saturation 1- Needs O2 inhalation to maintain O2 saturation of 90% O2 Saturation 1- Needs O2 inhalation to maintain O2 saturation of 90% Respiratory 0- Apneic requires ventilator or assisted respiration Respiratory 0- Apneic requires ventilator or assisted respiration Total Score 4 Total Score 4 Contrast Agent: Isovue Diagnostic Contrast: 105 ml Total Contrast: 105 ml Fluoro Dose: 29 mGy Procedure Log Time Note Enter By 07:07 PM CathStat 07:07 PM Vitals capture started with the following parameters, Patient=Adult, Interval=5 min, Initial Ncqgkghb=943 mmHg, Deflation Rate=3 mmHg, Cuff placed on Right Arm 07:08 PM Patient arrived at 19:08 with Versed Intravenous drip @ 2 mg/hr twilson 07:08 PM Patient arrived at 19:08 with Amiodarone Intravenous drip @ 1 mg/min tw 07:08 PM Pt arrived to warehouse laborer 2 at 19:07 twilson 07:08 PM Physician arrived 19:08 tw: PM Meet and juan completed : PM Sign in performed according to hospital policy. Informed consent was obtained. :08 PM Catie Molina RT (R) Position: Monitor Time in: : 07:08 PM Yung Mares RN Position: Lamp Replacer Time in: :ilson 07:08 PM Patient arrived at 19:08 with Fentanyl Intravenous drip @ 100 mcg/hr twilson 07:08 PM Mary Alice Estrada RT (R) Position: Scrub Time in: : 07:08 PM Patient charges- Angio tray pack, Navilyst 3mm J, Pulse Oximetry and ACIST tubing and transducer twilson :08 PM Hair removed from procedure site in procedure lab using clippers. Bilateral groin prepped with Chloraprep by Catie Molina RT (R), then patient was draped. Skin intact. tw 07:09 PM NC=640 bpm, LSJF=149/92 mmhg, SpO2=90 %, Resp=16 B/min 07:10 PM Time: 19:10 Patient comfortable and pain free: Yes tw 07: PM Time: 19:10LOC: 1 = Reflexes present/moves spontaneously twilson 07:11 PM Patient on vent. Respiratory present. Setting 500 volume. 50%. Rate 12. Peep 5. tw 07:12 PM Procedure start 19:12 tw 07:12 PM Time: 19:12 Versed 2 mg Intravenous Given by Yung Mares RN [facility] 07:12 PM Time: 19:12 Fentanyl 50 mcg Intravenous Given by Yung Mares RN [facility] 07:13 PM Time: 19:12 Solumedrol 125 mg Intravenous Given by Yung Mares RN [facility] 07:13 PM Recorded ECG: HW=081 Condition=Condition 1 07:14 PM Time: 19:14 Versed 2 mg Intravenous Given by Yung Mares RN [facility] 07:14 PM Time: 19:14 Fentanyl 50 mcg Intravenous Given by Yung Mares RN [facility] 07:15 PM Vitals capture stopped. 07:16 PM Time out was performed according to hospital policy. Conscious sedation and anesthesia was achieved (see medication log with in this report above) twilson 07:16 PM Vitals capture started with the following parameters, Patient=Adult, Interval=5 min, Initial Hswueuxn=905 mmHg, Deflation Rate=3 mmHg, Cuff placed on Right Arm 07:17 PM WP=225 bpm, WSLK=859/88 mmhg, GsA2=099.0 %, Resp=16 B/min 07:19 PM Recorded ECG: QI=715 Condition=Condition 1 07:19 PM Time: 19:19 20 ml Lidocaine 2% to right groin Subcutaneous Given by Clem Tucker MD, [facility] twilson 07: PM Micro-Introducer Kit utilized for sheath placement twilson 07: PM HR=97 bpm, BELP=697/79 mmhg, MhN4=474.0 %, Resp=16 B/min 07: PM Pressure channel 1 zeroed. 07:24 PM Access obtained by percutaneous puncture. 6Fr 10cm Terumo [place] sheath placed in right Femoral artery. [id number] twilson 07:24 PM 5Fr FL 4 catheter inserted over the wire DN twilson : PM 0.035 150cm VSI Santi-Torque wire [id number] twilson 07:24 PM Wire removed twilson 07:25 PM LCA angiography performed in multiple views. twilson 07:25 PM Recorded Pressure: Ao, HR=86, Condition=Condition 1 (Aorta) Ao 120/73/94 07:25 PM Wire reinserted. twilson : PM Time: 19:10LOC: 1 = Reflexes present/moves spontaneously twilson :25 PM Time: 19:10 Patient comfortable and pain free: Yes twilson 07: PM Catheter removed twilson 07: PM 5Fr FR 4 catheter inserted over the wire DN twilson 07: PM HR=94 bpm, JVCA=883/71 mmhg, LyG9=558.0 %, Resp=16 B/min 07: PM Recorded Pressure: Ao, HR=94, Condition=Condition 1 (Aorta) Ao 109/71/88 07:27 PM Wire removed twilson 07: PM RCA angiography performed in multiple views. twilson 07: PM Lesion found in Mid RCA. Pre Stenosis: 100 Pre EFREN Flow: twilson 07:28 PM Lesion found in Distal LMCA. Pre Stenosis: 95 Pre EFREN Flow: twilson 07:28 PM Lesion found in Proximal LAD. Pre Stenosis: 100 Pre EFREN Flow: twilson 07:28 PM Recorded Pressure: Ao, HR=95, Condition=Condition 1 (Aorta) Ao 99/68/83 07:28 PM SVG to the RCA angio performed in multiple views. twilson 07:29 PM Lesion found in Proximal Circumflex. Pre Stenosis: 99 Pre EFREN Flow: twilson 07:29 PM Left Main Coronary Artery with 95% stenosis twilson 07:29 PM Proximal Left Anterior Descending Coronary Artery with 100% stenosis. If graft is supplying this territory, 0 % stenosis. twilson 07:29 PM Circumflex, Obtuse Marginal, Left Posterior Descending, and Left Posterolateral Coronary Arteries with 99 % stenosis. If graft is supplying this area, 0 % stenosis twilson 07:29 PM Right Coronary, Right Posterior Descending Arteries with Right Posterolateral and Acute Marginal branches with 100 % stenosis. If graft is supplying this area, 0 % stenosis twilson 07:31 PM Time: 19:31 Patient comfortable and pain free: Yes twilson 07:31 PM Time: 19:31LOC: 1 = Reflexes present/moves spontaneously twilson 07:31 PM Wire reinserted. twilson 07:31 PM Catheter removed twilson 07:31 PM 5Fr IM catheter inserted over the wire [id number] twilson 07:31 PM HR=94 bpm, NIYU=499/72 mmhg, VvQ8=497.0 %, Resp=16 B/min 07:32 PM Recorded Pressure: Ao, HR=93, Condition=Condition 1 (Aorta) Ao 128/61/86 07:33 PM Recorded Pressure: Ao, HR=93, Condition=Condition 1 (Aorta) Ao 109/71/88 07:33 PM Left LANIE to the LAD angio performed in multiple views. twilson 07:34 PM Wire reinserted. twilson 07:35 PM Catheter removed twilson 07:35 PM 5Fr Pigtail catheter inserted over the wire DNC twilson 07:36 PM Catheter removed twilson 07:36 PM 6Fr Pigtail catheter inserted over the wire DNC twilson 07:37 PM HR=91 bpm, PFGN=170/76 mmhg, YrG1=177.0 %, Resp=16 B/min 07:38 PM Wire removed twilson 07:39 PM Bolus angiogram of Aortic root complete: 10 ml/sec for a total of 30 mls twilson 07:40 PM SVG to OM 1 occluded. twilson 07:41 PM Time: 19:40 Versed 2 mg Intravenous Given by Yung Mares RN twilson 07:41 PM Time: 19:41 Fentanyl 50 mcg Intravenous Given by Yung Mares RN twilson 07:41 PM Wire reinserted. twilson 07:41 PM Catheter crossed the aortic valve and was selectively placed in the left ventricle. Pressures recorded on pullback for left heart catheterization. twilson 07:41 PM HR=91 bpm, OQWQ=273/78 mmhg, ShU7=071.0 %, Resp=16 B/min 07:41 PM Wire removed twilson 07:42 PM Recorded Pressure: LV, HR=92, Condition=Condition 1 (Left Ventricle) LV 146/20/29 07:42 PM Bolus angiogram of left Ventricle complete: 10 ml/sec for a total of 30 mls twilson 07:42 PM Recorded Pressure: LV, Ao, HR=97, Condition=Condition 1 (Left Ventricle) LV 147/32/31, (Aorta) Ao 144/76/105 07:43 PM Wire reinserted. twilson 07:43 PM Wire and catheter removed. twilson 07:44 PM Wholey wire and JR4 diagnostic catheter reinserted. twilson 07:45 PM Wire removed twilson 07:46 PM Time: 19:31 Patient comfortable and pain free: Yes twilson 07:46 PM Time: 19:31LOC: 2 = Responds to voice twilson 07:47 PM Wire reinserted. twilson 07:47 PM HR=91 bpm, IBGS=982/77 mmhg, JxF0=060.0 %, Resp=16 B/min 07:47 PM Catheter and wire removed, intact. twilson 07:49 PM Bolus angiogram of right Femoral complete: 2 ml/sec for a total of 4 mls twilson 07:50 PM Coronary Dominance: right twilson 07:51 PM HR=91 bpm, IOLP=516/74 mmhg, FhH6=667.0 %, Resp=16 B/min 07:53 PM Procedure completed at 19:53 03/05/2019 twilson 07:56 PM Did you address EFREN flow and Dominance? YesCoronary Dominance: right twilson 07:56 PM HR=94 bpm, VSHP=538/83 mmhg, IbB6=609.0 % 07:57 PM Sign out completed: Radiation Dose 167.03 mGy, 29.4 Gy/cm2 Fluoro Time: 8.1 Isovue 370 - 200ml contrast 105 ml given by Clem Tucker MD, [facility]. Complications: None. 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 Sedation minutes 45. Cardiac Rehab Consult needed: No. Confirmed administered medications: Yes twilson 07:57 PM Isovue 370 - 125ml,2 Bottle(s) used. twilson 07:58 PM Arterial sheath pulled, Mynx closure device used and was Successful [id number] S/N. twilson 07:58 PM Estimated Blood Loss: minimal twilson 07:58 PM Post ECG NSR twilson 07:58 PM Post Blood Pressure 144/82 twilson 07:58 PM 19:58 Post Pulses Bilateral DP & PT 1+ twilson 07:58 PM Information taught Cardiac Cath and Mynx twilson 07:58 PM Education needs Procedure, Plan of Care, and Responsibilities of Patient in Care twilson 07:58 PM Learning barriers :None twilson 07:58 PM Education Methods Verbal twilson 07:58 PM Education evaluation Able to repeat information twilson 07:58 PM Site status No bleeding/ No Hematoma - Rt Groin as reported by Mary Alice Estrada RT (R) at 19:58 twilson 07:58 PM Opsite applied twilson 07:58 PM Family placed in consult room. twilson 08:06 PM Report given to RN Pt taken to ICU Room #2. 20:06 twilson 08:06 PM Patient out of room: 20:06 twilson Complications Complication None Hemodynamics Pressures Site Systolic/A Wave Diastolic/V Wave Mean AO 120 73 94 AO 109 71 88 AO 99 68 83 AO 128 61 86 AO 109 71 88 LV 146 20 29 LV 147 32 31 AO 144 76 105 Post Procedure Information Blood Pressure: 144/82 mmHg Rhythm: NSR Post procedural instructions were given Closure Device Time Device Success/Fail 03/05/2019 8:00:00 PM Mechanical Compression Successful Site Checks Time Location Status Staff Sheath In? Note 07:58 PM Rt Groin No bleeding/ No Hematoma Mary Alice Estrada RT (R) Pulses Time Site Pre-Procedure Post-Procedure Note 03/05/2019 6:46:00 PM Bilateral DP & PT 1+ 7:58:00 PM Bilateral DP & PT 1+ Updated by Catie Molina RT (R) on 03/05/2019 8:10:57 PM electronically signed on 03/05/2019 8:11:47 PM with status of Final
[2019-03-05] MEDS: Budesonide/Formoterol 160/4.5 1 PUFF INH IH SCH (21:23)
[2019-03-05] MEDS: Ipratropium/Albuterol Neb 3 ML IH SCH (21:24)
--- NOTE | 2019-03-05 21:37 | Internal Medicine Consult Note ---
Date of Encounter: 03/05/19 Time of Encounter: 21:35 - Time Spent With Patient Total time spent is greater than 50% in coordination of care (as documented) at patient's floor/unit and/or counseling patient: Internal Medicine - CN: HPI - Data of Consult Patient: new to practice Consult date: 03/05/19 Requesting Physician: Clem Tucker MD - Consult Narrative Reason for consult: Cardiac arrest History of present illness: Jeevan Barcenas is a 78-year-old man with multiple comorbidities including diabetes with peripheral angiopathy status post left below the knee amputation, hypertension, COPD secondary to tobacco abuse, coronary artery disease with a history of CABG in 2000 and angioplasty in 2008 and chronic systolic heart failure secondary to ischemic cardiomyopathy who presented to the emergency room initially complains of palpitations and chest pain that started at 9:30 this morning reportedly radiating to his back. No arrival to the ER he was noted to be in ventricular tachycardia and subsequently became hypotensive. Electrical cardioversion was performed unsuccessfully and after the third attempt he became pulseless. ACLS protocol was initiated and there is documentation that he was coded for approximately 3 rounds and defibrillation performed. He was intubated and amiodarone drip was started. His blood pressure remained labile and received 2 L of fluids. He was started on hypothermia protocol and interventional cardiology was consulted so he was taken to the Continuity [facility] finding an EF of 20%, patent bypass grafts but severe [place] coronary artery disease. He is now admitted to the ICU. On my assessment he is awake and followed commands adequately upon discontinuation of 1 of 2 sedative medications. However due to disruptive behavior, this was resumed. Vitals: Reviewed General: Elderly man sedated and intubated on mechanical ventilation Skin: Warm and dry, pale. Hyperkeratotic and scaly lesions in lower extremities. HEENT: Slightly dry mucous membranes. + conjunctivae pallor. Neck: No lymphadenopathy. No carotid bruits. No palpable thyroid. Chest: Reduced thoracic expansion. No wheezes, rales or rhonchi. Heart: Normal S1 & S2; rhythmic. Abdomen: Non-distended, soft and no apparent tenderness or guarding on palpation. Colostomy bag noted on the right lower quadrant. Extremities: Left leg prosthesis noted. Right ankle wrapped with dry dressing. Neurological: Sedated. Psych: Sedated. Assessment/Recommendations 1. Cardiac arrest: In the setting of ventricular tachycardia with underlying coronary artery disease. EKG now showing progression to right bundle branch block. He has been placed on amiodarone and is currently hemodynamically stable. This will continue overnight. Given his favorable mental status, hypothermia protocol will not be indicated. He will remain on mechanical ventilation with mild sedation till morning when weaning trials can be performed as deemed adequate. Will place consult to critical care for continuation of management. 2. 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 Will get a dedicated TTE for comprehensive cardiac morphology evaluation. He currently appears euvolemic and not in need of aggressive diuresis. Home medications of carvedilol, valsartan and furosemide resumed. He will need a lifevest temporarily and consideration for ICD. EP consult requested. 3. Coronary artery disease: On dual antiplatelet therapy. Monitor troponin values. 4. Acute liver injury: Suspect in the setting of hypoperfusion/low flow state from cardiac arrest. Will monitor trend. 5. Diabetes: Complicated by peripheral vascular disease s/p left BKA. Current state of control unknown. Currently on insulin sliding scale. 6. COPD: Secondary to longstanding tobacco use. No evidence of hypercarbia. Remains ventilated. Will repeat ABG in the morning prior to weaning trials. Bro nchidilators to be given as needed. 7. Chronic kidney disease: Stable at stage 3b. 8. Colostomy: Per chart review, the patient underwent a subtotal colectomy in 2009 at [facility] for unclear reasons. Past Med Surg Social Fam HX - Past Medical History Medical history: arthritis, asthma, cardiomyopathy, COPD, coronary artery di sease, diabetes, GERD, hyperlipidemia, hypertension, myocardial infarction, osteoporosis, peripheral artery disease, venous stasis, other Additional medical history: peripheral vascular disease Psychiatric history: no psych history - Past Surgical History Surgical History: angioplasty/stent, colostomy, coronary bypass (CABG), herniorrhaphy, other Additional surgical history: left below knee amputation - Social History Smoking Status: Current every day smoker Smokeless Tobacco Status: No Alcohol use: none Drug use: none - Family History Father Family Member Ethnicity: Non- Living Status: Hx Family Respiratory Disorders: Yes Hx Family Cancer: Yes ROS unobtainable: due to endotracheal tube, due to mental status Internal Medicine - CN: Meds Albuterol Sulfate [Proventil Inhaler] 2 puff IH Q8H PRN 12/15/15 [History] Aspirin Enteric Coated [Aspirin EC] 81 mg PO DAILY 12/15/15 [History] Benzonatate [Tessalon] 100 mg PO Q4H PRN 12/15/15 [History] Budesonide/Formoterol 160/4.5 [Symbicort 160/4.5] 2 puff IH BIDR 12/15/15 [History] Guaifenesin 400 mg PO DAILY PRN 12/15/15 [History] Ipratropium/Albuterol Neb [Duoneb] 3 ml IH Q6HR 12/15/15 [History] Isosorbide MONOnitrate (24 HR) [Imdur] 15 mg PO DAILY 12/15/15 [History] Nortriptyline [Pamelor] 10 mg PO TID 12/15/15 [History] Pantoprazole Sodium 40 mg PO DAILY 12/15/15 [History] Terazosin HCl 2 mg PO HS 12/15/15 [History] Valsartan [Diovan] 40 mg PO BID 12/15/15 [History] Aloe Vera/Collagen [Aloe [place] Cleansing Foam] 1 appl TP AD PRN 01/15/17 [History] Atorvastatin Calcium [Lipitor] 10 mg PO DAILY 01/15/17 [History] Clopidogrel [Plavix] 75 mg PO DAILY 01/15/17 [History] Furosemide [Lasix] 20 mg PO QAM 01/15/17 [History] Insulin NPH Human Isophane [Novolin N] 20 unit SQ QAM 01/15/17 [History] Insulin NPH Human Isophane [Novolin N] 25 unit SQ QPM 01/15/17 [History] L. Acidophilus/Pectin, [place] [Acidophilus Probiotic Capsule] 1 cap PO DAILY 01/15/17 [History] Loratadine [Allergy Relief] 10 mg PO DAILY 01/15/17 [History] Nitroglycerin [Nitrostat] 0.4 mg SL AD PRN 01/15/17 [History] Carvedilol [Coreg] 25 mg PO BID #20 01/24/17 [Rx] Magnesium Oxide [Magnesium] 400 mg PO DAILY 02/16/17 [History] Allergy/AdvReac Type Severity Reaction Status Date / Time iodine Allergy Hives Verified 03/05/19 18:16 ondansetron Allergy Hives Verified 03/05/19 18:16 [From Zofran (as hydrochloride)] Hospitalist - CN: Exam - Constitutional Vitals: Temp Pulse Resp BP Pulse Ox 97.6 F 85 20 129/65 97 03/05/19 21:00 03/05/19 21:00 03/05/19 21:23 03/05/19 21:23 03/05/19 21:23 Exam: . Internal Medicine - CN: Reslt - Labs CBC & Chem 7: 03/05/19 18:16 03/05/19 18:16 Labs: Short CBC 03/05/19 Range/Units 18:16 WBC 16.9 H (4.3-11.1) K/mcL Hgb 11.5 L (12.9-16.9) g/dL Hct 34.3 L (37.5-50.1) % Plt Count 204 (140-400) K/mcL Neutrophils # 12.8 H (1.6-8.9) K/mcL BMP 03/05/19 18:16 Sodium 135 L Potassium 4.3 Chloride 100 Carbon Dioxide 17 L BUN 28 H Creatinine 1.83 H Glucose 392 H Calcium 9.3 Cardiac Enzymes 03/05/19 Range/Units 18:16 Troponin I 0.42 H* (< 0.04) ng/mL Liver Function 03/05/19 Range/Units 18:16 Total Bilirubin 0.5 (0.3-1.0) mg/dL Direct Bilirubin 0.1 (0.0-0.2) mg/dL AST 142 H (13-39) Units/L ALT 166 H (7-52) Units/L Alkaline Phosphatase 82 (34-104) Units/L Albumin 3.5 (3.5-5.7) g/dL - ABG Interpretation ABG results: ABG ABG pH 7.23 pH Units (7.32-7.45) L 03/05/19 18:46 ABG pCO2 40 mmHg (35-45) 03/05/19 18:46 ABG pO2 570 mmHg (85-104) H 03/05/19 18:46 ABG O2 Saturation 100 % (95-98) H 03/05/19 18:46 PT/INR, D-dimer PT 13.3 Seconds (9.4-12.1) H 03/05/19 18:16 - Impressions Impressions Chest X-Ray 03/05/19 18:10 IMPRESSION: Tip of the endotracheal tube is 4 cm above the avery. Curvilinear interface at the left lung apex. Although this is most likely a skin fold, consider follow-up chest radiograph to exclude less likely possibility of small pneumothorax. No focal consolidation or significant pleural effusion. D/ / 03/05/2019 18:58:45 Willie Wilkinson MD / wily Interpreting Provider: Willie Wilkinson MD Consult Discharge Plan - Plan [facility] [Primary Care Provider[facility] -
[2019-03-05] MEDS: Norepinephrine 4 MG in 0.9 % Sodium Chloride 250 ML IVC SCH (22:07)
[2019-03-05] MEDS: Valsartan 80 MG TABLET PO SCH (22:08)
--- NOTE | 2019-03-05 22:24 | Emergency Department Note ---
Disposition Clinical Impression: Ventricular tachycardia, Cardiac arrest Disposition: Admitted As Inpatient Condition: Critical Time of Disposition: 18:50 General Adult HPI - General Chief complaint: ED Chest Pain Stated complaint: cp Time Seen by Provider: 03/05/19 17:16 Source: patient, EMS Mode of arrival: EMS Limitations: no limitations Nursing Notes Reviewed: Yes Vital Signs Reviewed: Yes - History of Present Illness Pain Scale: 0 - Related Data Home Medications Medication Instructions Recorded Confirmed Albuterol Sulfate [Proventil 2 puff IH Q8H PRN 12/15/15 02/16/17 Inhaler] Aspirin Enteric Coated [Aspirin EC] 81 mg PO DAILY 12/15/15 02/16/17 Benzonatate [Tessalon] 100 mg PO Q4H PRN 12/15/15 02/16/17 Budesonide/Formoterol 160/4.5 2 puff IH BIDR 12/15/15 02/16/17 [Symbicort 160/4.5] Guaifenesin 400 mg PO DAILY PRN 12/15/15 02/16/17 Ipratropium/Albuterol Neb [Duoneb] 3 ml IH Q6HR 12/15/15 02/16/17 Isosorbide MONOnitrate (24 HR) 15 mg PO DAILY 12/15/15 02/16/17 [Imdur] Nortriptyline [Pamelor] 10 mg PO TID 12/15/15 02/16/17 Pantoprazole Sodium 40 mg PO DAILY 12/15/15 02/16/17 Terazosin HCl 2 mg PO HS 12/15/15 02/16/17 Valsartan [Diovan] 40 mg PO BID 12/15/15 02/16/17 Aloe Vera/Collagen [Aloe [place] 1 appl TP AD PRN 01/15/17 02/16/17 Cleansing Foam] Atorvastatin Calcium [Lipitor] 10 mg PO DAILY 01/15/17 02/16/17 Clopidogrel [Plavix] 75 mg PO DAILY 01/15/17 02/16/17 Furosemide [Lasix] 20 mg PO QAM 01/15/17 02/16/17 Insulin NPH Human Isophane 20 unit SQ QAM 01/15/17 02/16/17 [Novolin N] Insulin NPH Human Isophane 25 unit SQ QPM 01/15/17 02/16/17 [Novolin N] L. Acidophilus/Pectin, [place] 1 cap PO DAILY 01/15/17 02/16/17 [Acidophilus Probiotic Capsule] Loratadine [Allergy Relief] 10 mg PO DAILY 01/15/17 02/16/17 Nitroglycerin [Nitrostat] 0.4 mg SL AD PRN 01/15/17 02/16/17 Magnesium Oxide [Magnesium] 400 mg PO DAILY 02/16/17 02/16/17 Previous Rx's Medication Instructions Recorded Carvedilol [Coreg] 25 mg PO BID #20 01/24/17 Allergies Allergy/AdvReac Type Severity Reaction Status Date / Time iodine Allergy Hives Verified 03/05/19 18:16 ondansetron Allergy Hives Verified 03/05/19 18:16 [From Zofran (as hydrochloride)] Past Medical History - Past Medical History Medical history: Reports: arthritis, asthma, cardiomyopathy, COPD, coronary artery disease, diabetes, GERD, hyperlipidemia, hypertension, myocardial infarction, osteoporosis, peripheral artery disease, venous stasis, other Surgical history: Reports: angioplasty/stent, colostomy, coronary bypass (CABG), herniorrhaphy, other Psychiatric history: Reports: no psych history - Social History Smoking Status: Current every day smoker Smokeless Tobacco Status: No Alcohol use: Reports: none Drug use: Reports: none Physical Exam - General Limitations: no limitations General appearance: alert, in distress Course Vital Signs Temperature 98.3 F 03/05/19 17:12 Pulse Rate 168 03/05/19 17:12 Respiratory Rate 26 03/05/19 17:12 Blood Pressure 100/82 03/05/19 17:12 O2 Sat by Pulse Oximetry 100 03/05/19 17:12 Temperature 97.6 F 03/06/19 07:47 Pulse Rate 75 03/06/19 06:00 Respiratory Rate 17 03/06/19 06:00 Blood Pressure 130/60 03/06/19 06:00 O2 Sat by Pulse Oximetry 100 03/06/19 06:00 Oxygen Delivery Oxygen Delivery Ventilator Medical Decision Making - MDM Narrative Medical decision making narrative: I, Marc Randolph, examined this patient and my medical decision-making was reviewed with the AEROSOL LINE OPERATOR/PA/Advanced Practice Nurse/Resident Physician. I agree with the documented findings, disposition and treatment plan as described except to the extent set forth below. I took over care of this patient during an emergent situation. Patient presented the to the emergency Department with concerns of palpitations, weakne ss and fatigue. Symptoms have been present and worsening over the past 24-48 hours. Family states the patient did not have electricity at his house and was therefore unable to have oxygen or his nebulizer. It is unclear if he is been taking his medications at home. Patient has a history of V. tach in the past but thinks that he converted with IV medication without having been cardioverted. During our evaluation the patient became hypotensive. We gave her Versed and we cardioverted with synchronized 100 J for a wide regular tachycardic rhythm. Patient cardioverted initially but then returned to V. tach. He was then shocked 2 more times in conjunction with ACLS protocol. Patient then lost pulses and went into V. fib. He was then defibrillated. We went through multiple rounds of ACLS with rhythms of V. tach, V. fib. Patient had a rhythm that looked like torsades at one point and he was given a total of 4 mg of magnesium. Amiodarone was given during this time. We received return of spontaneous circulation. BP remained stable with IV fluids. Chest x-ray after intubation showed good placement of ET tube. It also showed a possible small pneumothorax. Patient is intubated at this time. We called [facility] to update them on x-ray results. I was present during the intubation and supervised the procedure by the resident. I spoke with the belt maker helper who agreed to take the patient to the [facility] for further care and evaluation. Patient was placed on cooling protocol and labs are pending at the time of patient being taken to [facility]. - Medical Records Medical records reviewed: Yes I reviewed the patient's medical records. - Lab Data Lab results reviewed: Yes I reviewed the patient's lab results. Result diagrams: 03/06/19 03:50 03/06/19 03:50 Lab Results 03/05/19 03/05/19 03/05/19 Range/Units 18:16 18:16 18:16 WBC 16.9 H (4.3-11.1) K/mcL RBC 3.47 L (4.19-5.50) M/mcL Hgb 11.5 L (12.9-16.9) g/dL Hct 34.3 L (37.5-50.1) % MCV 98.8 (83.0-100.0) fL MCH 33.1 (28.0-33.3) pg MCHC 33.5 (31.6-35.5) g/dL RDW 12.3 (11.5-14.5) % Plt Count 204 (140-400) K/mcL MPV 9.5 (9.4-12.4) fL Immature Gran % 2.3 (0-4) % Seg Neutrophils % 75.4 % Lymphocytes % 14.3 % Monocytes % 4.3 % Eosinophils % 3.1 % Basophils % 0.6 % Neutrophils # 12.8 H (1.6-8.9) K/mcL Lymphocytes # 2.4 (0.6-4.6) K/mcL Monocytes # 0.7 (0.0-1.3) K/mcL Eosinophils # 0.5 (0.0-0.6) K/mcL Basophils # 0.1 (0.0-0.2) K/mcL PT (9.4-12.1) Seconds INR APTT (26.0-36.0) Seconds ABG pH (7.32-7.45) pH Units ABG pCO2 (35-45) mmHg ABG pO2 (85-104) mmHg ABG HCO3 (21-27) mEq/L ABG Total CO2 (20-26) mEq/L ABG O2 Saturation (95-98) % ABG Base Excess (-2 to 3) mEq/L Sodium 135 L (136-145) mEq/L Potassium 4.3 (3.5-5.1) mEq/L Chloride 100 (98-107) mEq/L Carbon Dioxide 17 L (23-29) mEq/L BUN 28 H (8-23) mg/dL Creatinine 1.83 H (0.70-1.30) mg/dL Est GFR ( Amer) 44 L (> 60) Est GFR (Non-Af Amer) 36 L (> 60) BUN/Creatinine Ratio 15 (6-26) Glucose 392 H (70-105) mg/dL Calculated Osmolality 302 H (280-300) Lactic Acid 5.6 H* (0.5-2.2) mmol/L Calcium 9.3 (8.6-10.3) mg/dL Total Bilirubin 0.5 (0.3-1.0) mg/dL Direct Bilirubin 0.1 (0.0-0.2) mg/dL Indirect Bilirubin 0.4 (0.0-1.2) mg/dL AST 142 H (13-39) Units/L ALT 166 H (7-52) Units/L Alkaline Phosphatase 82 (34-104) Units/L Creatine Kinase 90 (30-223) Units/L Troponin I 0.42 H* (< 0.04) ng/mL B-Natriuretic Peptide (Less than 100) pg/mL Serum Total Protein 5.6 L (6.4-8.9) g/dL Albumin 3.5 (3.5-5.7) g/dL Globulin 2.1 L (2.4-3.5) g/dL Albumin/Globulin Ratio 1.7 (1.1-2.2) 03/05/19 03/05/19 03/05/19 Range/Units 18:16 18:16 18:46 WBC (4.3-11.1) K/mcL RBC (4.19-5.50) M/mcL Hgb (12.9-16.9) g/dL Hct (37.5-50.1) % MCV (83.0-100.0) fL MCH (28.0-33.3) pg MCHC (31.6-35.5) g/dL RDW (11.5-14.5) % Plt Count (140-400) K/mcL MPV (9.4-12.4) fL Immature Gran % (0-4) % Seg Neutrophils % % Lymphocytes % % Monocytes % % Eosinophils % % Basophils % % Neutrophils # (1.6-8.9) K/mcL Lymphocytes # (0.6-4.6) K/mcL Monocytes # (0.0-1.3) K/mcL Eosinophils # (0.0-0.6) K/mcL Basophils # (0.0-0.2) K/mcL PT 13.3 H (9.4-12.1) Seconds INR 1.2 APTT 39.4 H (26.0-36.0) Seconds ABG pH 7.23 L (7.32-7.45) pH Units ABG pCO2 40 (35-45) mmHg ABG pO2 570 H (85-104) mmHg ABG HCO3 17 L (21-27) mEq/L ABG Total CO2 18 L (20-26) mEq/L ABG O2 Saturation 100 H (95-98) % ABG Base Excess -10 L (-2 to 3) mEq/L Sodium (136-145) mEq/L Potassium (3.5-5.1) mEq/L Chloride (98-107) mEq/L Carbon Dioxide (23-29) mEq/L BUN (8-23) mg/dL Creatinine (0.70-1.30) mg/dL Est GFR ( Amer) (> 60) Est GFR (Non-Af Amer) (> 60) BUN/Creatinine Ratio (6-26) Glucose (70-105) mg/dL Calculated Osmolality (280-300) Lactic Acid (0.5-2.2) mmol/L Calcium (8.6-10.3) mg/dL Total Bilirubin (0.3-1.0) mg/dL Direct Bilirubin (0.0-0.2) mg/dL Indirect Bilirubin (0.0-1.2) mg/dL AST (13-39) Units/L ALT (7-52) Units/L Alkaline Phosphatase (34-104) Units/L Creatine Kinase (30-223) Units/L Troponin I (< 0.04) ng/mL B-Natriuretic Peptide 515 H (Less than 100) pg/mL Serum Total Protein (6.4-8.9) g/dL Albumin (3.5-5.7) g/dL Globulin (2.4-3.5) g/dL Albumin/Globulin Ratio (1.1-2.2) - Radiology Data Radiology results reviewed: Yes I reviewed the patient's radiology results.
[2019-03-05] MEDS: Insulin LISPRO 300 UNITS/3 ML VIAL SQ SCH (23:47)
[2019-03-06] MEDS: FentaNYL (PF) 1,000 MCG in 0.9 % Sodium Chloride 80 ML IVC SCH ×2 (01:35→19:49)
[2019-03-06] MEDS: Ipratropium/Albuterol Neb 3 ML IH SCH ×4 (03:41→21:47)
[2019-03-06 04:14] LABS: Basophils % 0.2 %; Eosinophils % 0.1 %; Immature Granulocytes % 0.7 % (0-4); Lymphocytes # 0.8 K/mcL (0.6-4.6); Lymphocytes % 5.4 %; Mean Corpuscular HGB Conc 34.4 g/dL (31.6-35.5); Mean Corpuscular Hemoglobin 33.3 pg (28.0-33.3); Mean Platelet Volume 9.7 fL (9.4-12.4); Monocytes # 0.6 K/mcL (0.0-1.3); Monocytes % 4.2 %; Neutrophils # 12.6 K/mcL (1.6-8.9); Platelet Count 157 K/mcL (140-400); Red Cell Distribution Width 12.1 % (11.5-14.5); Segmented Neutrophils % 89.4 %; White Blood Count 14.2 K/mcL (4.3-11.1)
[2019-03-06 04:35] LABS: Albumin 3.5 g/dL (3.5-5.7); Albumin/Globulin Ratio 1.8 (1.1-2.2); Bilirubin,Direct 0.1 mg/dL (0.0-0.2); Bilirubin,Indirect 0.2 mg/dL (0.0-1.2); Bilirubin,Total 0.3 mg/dL (0.3-1.0); Calcium 8.6 mg/dL (8.6-10.3); Potassium 3.8 mEq/L (3.5-5.1); Total Protein 5.5 g/dL (6.4-8.9); Troponin I 2.3 ng/mL (< 0.04)
[2019-03-06 05:24] LABS: ABG Base Excess -2 mEq/L (-2 to 3); ABG HCO3 25 mEq/L (21-27); ABG Oxygen Saturation 97 % (95-98); ABG PCO2 50 mmHg (35-45); ABG PH 7.31 pH Units (7.32-7.45); ABG PO2 100 mmHg (85-104); ABG TCO2 27 mEq/L (20-26); Blood Gas Modality AF; Blood Gas PEEP 5 cm H2O; Blood Gas VT 500 cc
[2019-03-06] MEDS ORDERED: *HR* Heparin 5,000 UNIT/ML VIAL SQ SCH (06:00)
[2019-03-06] MEDS: Insulin LISPRO 300 UNITS/3 ML VIAL SQ SCH ×5 (06:20→23:38)
--- NOTE | 2019-03-06 07:08 | Pulmonology Consult Note ---
<Eric Harrison W - Last Filed: 03/06/19 07:40> Date of Encounter: 03/06/19 Medications and Allergies Albuterol Sulfate [Proventil Inhaler] 2 puff IH Q8H PRN 12/15/15 [History] Aspirin Enteric Coated [Aspirin EC] 81 mg PO DAILY 12/15/15 [History] Benzonatate [Tessalon] 100 mg PO Q4H PRN 12/15/15 [History] Budesonide/Formoterol 160/4.5 [Symbicort 160/4.5] 2 puff IH BIDR 12/15/15 [History] Guaifenesin 400 mg PO DAILY PRN 12/15/15 [History] Ipratropium/Albuterol Neb [Duoneb] 3 ml IH Q6HR 12/15/15 [History] Isosorbide MONOnitrate (24 HR) [Imdur] 15 mg PO DAILY 12/15/15 [History] Nortriptyline [Pamelor] 10 mg PO TID 12/15/15 [History] Pantoprazole Sodium 40 mg PO DAILY 12/15/15 [History] Terazosin HCl 2 mg PO HS 12/15/15 [History] Valsartan [Diovan] 40 mg PO BID 12/15/15 [History] Aloe Vera/Collagen [Aloe [employer] Foam] 1 appl TP AD PRN 01/15/17 [History] Atorvastatin Calcium [Lipitor] 10 mg PO DAILY 01/15/17 [History] Clopidogrel [Plavix] 75 mg PO DAILY 01/15/17 [History] Furosemide [Lasix] 20 mg PO QAM 01/15/17 [History] Insulin NPH Human Isophane [Novolin N] 20 unit SQ QAM 01/15/17 [History] Insulin NPH Human Isophane [Novolin N] 25 unit SQ QPM 01/15/17 [History] L. Acidophilus/Pectin, [place] [Acidophilus Probiotic Capsule] 1 cap PO DAILY 01/15/17 [History] Loratadine [Allergy Relief] 10 mg PO DAILY 01/15/17 [History] Nitroglycerin [Nitrostat] 0.4 mg SL AD PRN 01/15/17 [History] Carvedilol [Coreg] 25 mg PO BID #20 01/24/17 [Rx] Magnesium Oxide [Magnesium] 400 mg PO DAILY 02/16/17 [History] Allergy/AdvReac Type Severity Reaction Status Date / Time iodine Allergy Hives Verified 03/05/19 18:16 ondansetron Allergy Hives Verified 03/05/19 18:16 [From Zofran (as hydrochloride)] All Systems: The remainder of the systems were reviewed and are negative Physical Examination Vital Signs: Vital Signs, Last 4 Hours Temp Pulse Resp BP Pulse Ox 03/06/19 06:00 75 17 130/60 100 03/06/19 05:42 16 127/61 99 03/06/19 05:30 73 17 127/61 99 03/06/19 04:00 76 17 130/70 97 03/06/19 03:57 96.3 F L 03/06/19 03:43 18 120/63 98 Ventilator Settings Ventilator Settings: Ventilator Settings, Last 8 Hours Ventilator Tidal Volume 500 Setting Ventilator Tidal Volume 500 Setting Ventilator Tidal Volume 500 Setting Ventilator Tidal Volume 500 Setting Ventilator Tidal Volume 500 Setting Ventilator Tidal Volume 500 Setting Ventilator Tidal Volume 500 Setting Ventilator Tidal Volume 500 Setting Ventilator Tidal Volume 500 Setting Ventilator Tidal Volume 500 Setting Ventilator Tidal Volume 500 Setting Ventilator Tidal Volume 500 Setting Ventilator Respiratory Rate 12 Setting Ventilator Respiratory Rate 12 Setting Ventilator Respiratory Rate 12 Setting Ventilator Respiratory Rate 12 Setting Ventilator Respiratory Rate 12 Setting Ventilator Respiratory Rate 12 Setting Ventilator Respiratory Rate 12 Setting Ventilator Respiratory Rate 12 Setting Ventilator Respiratory Rate 12 Setting Ventilator Respiratory Rate 12 Setting Ventilator Respiratory Rate 12 Setting Ventilator Respiratory Rate 12 Setting Actual Respiratory Rate 18 Actual Respiratory Rate 16 Actual Respiratory Rate 16 Actual Respiratory Rate 17 Actual Respiratory Rate 18 Actual Respiratory Rate 18 Actual Respiratory Rate 16 Actual Respiratory Rate 17 Actual Respiratory Rate 18 Actual Respiratory Rate 17 Actual Respiratory Rate 18 Positive End Expiratory 5 Pressure Positive End Expiratory 5 Pressure Positive End Expiratory 5 Pressure Positive End Expiratory 5 Pressure Positive End Expiratory 5 Pressure Positive End Expiratory 5 Pressure Positive End Expiratory 5 Pressure Positive End Expiratory 5 Pressure Positive End Expiratory 5 Pressure Positive End Expiratory 5 Pressure Positive End Expiratory 5 Pressure Positive End Expiratory 5 Pressure Peak Inspiratory Airway 11 Pressure Peak Inspiratory Airway 14 Pressure Peak Inspiratory Airway 14 Pressure Peak Inspiratory Airway 6 Pressure Peak Inspiratory Airway 12 Pressure Peak Inspiratory Airway 6 Pressure Peak Inspiratory Airway 6 Pressure Peak Inspiratory Airway 12 Pressure Peak Inspiratory Airway 6 Pressure Peak Inspiratory Airway 7 Pressure Peak Inspiratory Airway 12 Pressure Results - Laboratory Findings CBC and BMP: 03/06/19 03:50 03/06/19 03:50 ABG ABG pH 7.31 pH Units (7.32-7.45) L 03/06/19 05:21 ABG pCO2 50 mmHg (35-45) H 03/06/19 05:21 ABG pO2 100 mmHg (85-104) 03/06/19 05:21 ABG O2 Saturation 97 % (95-98) 03/06/19 05:21 PT/INR, D-dimer PT 13.3 Seconds (9.4-12.1) H 03/05/19 18:16 Abnormal lab findings: Abnormal lab results WBC 14.2 K/mcL (4.3-11.1) H 03/06/19 03:50 RBC 3.30 M/mcL (4.19-5.50) L 03/06/19 03:50 Hgb 11.0 g/dL (12.9-16.9) L 03/06/19 03:50 Hct 32.0 % (37.5-50.1) L 03/06/19 03:50 Neutrophils # 12.6 K/mcL (1.6-8.9) H 03/06/19 03:50 PT 13.3 Seconds (9.4-12.1) H 03/05/19 18:16 APTT 39.4 Seconds (26.0-36.0) H 03/05/19 18:16 ABG pH 7.31 pH Units (7.32-7.45) L 03/06/19 05:21 ABG pCO2 50 mmHg (35-45) H 03/06/19 05:21 ABG pO2 570 mmHg (85-104) H 03/05/19 18:46 ABG HCO3 17 mEq/L (21-27) L 03/05/19 18:46 ABG Total CO2 27 mEq/L (20-26) H 03/06/19 05:21 ABG O2 Saturation 100 % (95-98) H 03/05/19 18:46 ABG Base Excess -10 mEq/L (-2 to 3) L 03/05/19 18:46 Sodium 135 mEq/L (136-145) L 03/05/19 18:16 Carbon Dioxide 22 mEq/L (23-29) L 03/06/19 03:50 BUN 28 mg/dL (8-23) H 03/06/19 03:50 Creatinine 1.48 mg/dL (0.70-1.30) H 03/06/19 03:50 Est GFR ( Amer) 56 (> 60) L 03/06/19 03:50 Est GFR (Non-Af Amer) 46 (> 60) L 03/06/19 03:50 Glucose 228 mg/dL (70-105) H 03/06/19 03:50 POC Glucose 229 mg/dL (70-99) H 03/06/19 05:22 Calculated Osmolality 302 (280-300) H 03/05/19 18:16 Lactic Acid 5.6 mmol/L (0.5-2.2) H* 03/05/19 18:16 AST 161 Units/L (13-39) H 03/06/19 03:50 ALT 175 Units/L (7-52) H 03/06/19 03:50 Troponin I 2.30 ng/mL (< 0.04) H* 03/06/19 03:50 B-Natriuretic Peptide 515 pg/mL (Less than 100) H 03/05/19 18:16 Serum Total Protein 5.5 g/dL (6.4-8.9) L 03/06/19 03:50 Globulin 2.0 g/dL (2.4-3.5) L 03/06/19 03:50 - Clinical Findings Intake & Output: Intake & Output 03/05/19 03/05/19 03/06/19 15:59 23:59 07:59 Intake Total 200 / 200 309 / 309 Output Total 450 / 450 0 / 0 Balance -250 / -250 309 / 309 Weight 82.3 kg Consult Discharge Plan - Plan Referrals: [facility] [Primary Care Provider] - - Attending Attestation I examined this patient and my medical decision-making was reviewed with the Resident Physician. I agree with the documented findings, disposition and treatment plan as described except to the extent set forth below. We independently had [id number] contact with the patient I spent 32min of Critical Care time with this patient. It involved decision making of high complexity to assess, manipulate, and support vital organ system failure and/or to prevent further life threatening deterioration of the patient's condition. The time involved in the performance of separately reportable procedures was not counted toward critical care time. Patient seen and examined at bedside Labs, radiology, chart personally reviewed. Management was reviewed during multidisciplinary critical care rounds. SPIRITUAL MINISTER: The patient is awake and able to follow commands status post cardiac arrest no clear evidence of acute neurological impairment we will have to monitor this very closely Pulm: Hypoxic respiratory failure and was intubated after cardiac arrest he is on the vent now with acceptable gas exchange Plan for liberation trial Cards: Severe coronary artery disease with Cardiac arrest in the context of ventricular tachyarrhythmia he has decompensated systolic heart failure likely need ICD placement electrophysiology service will be consulted continue amiodarone for now avoid QT prolonging medications GI: GI prophylaxis while on vent Nutrition: Nothing by mouth for now Renal: Acute on chronic kidney injury UOP Monitored, Cont to Trend sCr and monitor Electrolytes. ID: No clear evidence of infection we will continue to monitor I suspect leukocytosis is reactionary Heme/Onc: Continue DVT prophylaxis Endo: Glucose Monitored Integ/MSK: Skin Care per routine ICU Nursing Protocol to prevent ulcers. Lines: All lines examined without evidence of infection : Dispo: Monitor in ICU for critical illness CODE: Full <Pedro Pablo Cobb - Last Filed: 03/06/19 10:17> Date of Encounter: 03/06/19 Time of Encounter: 07:08 Assessment and Plan (1) Decompensated heart failure Current Visit: Yes Status: Acute Catheter report shows patient with EF of 20% Most recent previous echo from 12/31/16 with an EF of 40-45%. -EP consulted, pt will probably need ICD placement -Continue current medical therapy including Coreg 25 mg twice a day, isosorbide mononitrate 15 mg daily, lasix 20 mg, and valsartan 40 mg twice a day -Continue Amiodarone IV -Avoid QT prolonging medications (2) Cardiac arrest Current Visit: Yes Status: Resolved Recent with an episode of V. tach in the ED with heart rates in the 180s to 200s patient Patient became hypotensive and the decision to cardiovert was made after giving patient 4 mg of Versed 3 rounds of cardioversion performed with third resulting in patient becoming pulseless CPR was initiated as well as defibrillation and intubation Patient regained ROSC and therapeutic hypothermia was initiated as per ACLS criteria Interventional cardiology then took patient to label operator (3) Ventricular tachycardia Current Visit: Yes Status: Resolved She was noted on telemetry to be in V. tach ECG in ED with wide complex tachycardia at 190 beats per minute Patient came hypotensive and went into cardiac arrest as explained above -Currently patient is in normal sinus rhythm with a heart rate of 75 and blood pressure of 130/60. -Continue to monitor patient on telemetry (4) Acute on chronic respiratory failure with hypoxia and hypercapnia Current Visit: No Status: Acute Patient intubated in the ED and placed on ventilator overnight. Kept on 40% FiO2, PEEP of 5, Tidal Volume of 500, and RR 12 -Extubated this morning with good oxygenation on 3 L O2 via NC (5) Diabetes mellitus Current Visit: No Status: Chronic BG of 229 currently -On medium dose SSI with q6h glucose monitoring -Will adjust as needed when pt is able to begin oral nutrition Qualifiers: Diabetes mellitus type: type 2 Diabetes mellitus group home insulin use: with terminal clerk use Diabetes mellitus complication status: with circulatory complication Diabetes mellitus complication detail: with peripheral angiopathy without gangrene Qualified Code(s): E11.51 - Type 2 diabetes mellitus with diabetic peripheral angiopathy without gangrene; Z79.4 - terminal clerk (current) use of insulin (6) Acute on chronic kidney failure Current Visit: Yes Status: Acute On admission patient with a creatinine of 1.83 Patient has received 2 L of normal saline since admission -Creatinine this morning of 1.48 appears to be closer to patient's baseline. -Due to patient's history of heart failure will be hesitant to give her IV hydration. -Continue to monitor Qualifiers: Acute renal failure type: unspecified Chronic kidney disease stage: stage 3 (moderate) Qualified Code(s): N17.9 - Acute kidney failure, unspecified; N18.3 - Chronic kidney disease, stage 3 (moderate) (7) DVT prophylaxis Current Visit: Yes Status: Acute 5000 units SubQ Heparin TID History of Present Illness Consult date: 03/06/19 Chief complaint: Cardiac Arrest History of present illness: 78M with a past medical history of CHF with EF of 20%, COPD, CAD post CABG, diabetes, GERD, PAD, and hypertension presents to the ED for palpitations that started early yesterday morning. Patient was also having severe chest pain at that time that radiated to his back. History was difficult to obtain due to patient's critical nature. In the ED an EKG revealed wide complex tachycardia at 190 bpm, troponin of 0.42. Patient went into V. tach and V. fib arrest with ROSC. Patient was intubated at this time. Therapeutic hyperthermia was started in ED and patient was taken for an emergent left heart catheter to determine if there is ischemic cause of arrest. Patient was started on an amiodarone drip. Left heart catheter last night revealed severe chicken ranch CAD, JEAN to the LAD patent with collaterals, and SVG to RCA patent with an EF of 20%. Patient was then brought to ICU for monitoring on ventilator. Past Med Surg Social Fam HX - Past Medical History Medical history: arthritis, asthma, cardiomyopathy, COPD, coronary artery disease, diabetes, GERD, hyperlipidemia, hypertension, myocardial infarction, osteoporosis, peripheral artery disease, venous stasis, other Additional medical history: peripheral vascular disease Psychiatric history: no psych history - Past Surgical History Surgical History: angioplasty/stent, colostomy, coronary bypass (CABG), herniorrhaphy, other Additional surgical history: left below knee amputation - Social History Smoking Status: Current every day smoker Smokeless Tobacco Status: No Alcohol use: none Drug use: none - Family History Father Family Member Ethnicity: Non- Living Status: Hx Family Respiratory Disorders: Yes Hx Family Cancer: Yes ROS unobtainable: due to mental status All Systems: The remainder of the systems were reviewed and are negative Physical Examination Vital Signs: Vital Signs, Last 4 Hours Temp Pulse Resp BP Pulse Ox 03/06/19 06:00 75 17 130/60 100 03/06/19 05:42 16 127/61 99 03/06/19 05:30 73 17 127/61 99 03/06/19 04:00 76 17 130/70 97 03/06/19 03:57 96.3 F L 03/06/19 03:43 18 120/63 98 General appearance: no acute distress Eyes: nonicteric Neck: supple, no lymphadenopathy Effort: normal Auscultation: bilateral: clear Cardiovascular: regular rate and rhythm Gastrointestinal: normoactive bowel sounds, soft, non-distended Integumentary: normal Extremities: no cyanosis, no edema Musculoskeletal: other (LLE amputation) unable to assess due to mental status Ventilator Settings Ventilator Settings: Ventilator Settings, Last 8 Hours Ventilator Tidal Volume 500 Setting Ventilator Tidal Volume 500 Setting Ventilator Tidal Volume 500 Setting Ventilator Tidal Volume 500 Setting Ventilator Tidal Volume 500 Setting Ventilator Tidal Volume 500 Setting Ventilator Tidal Volume 500 Setting Ventilator Tidal Volume 500 Setting Ventilator Tidal Volume 500 Setting Ventilator Tidal Volume 500 Setting Ventilator Tidal Volume 500 Setting Ventilator Tidal Volume 500 Setting Ventilator Tidal Volume 500 Setting Ventilator Respiratory Rate 12 Setting Ventilator Respiratory Rate 12 Setting Ventilator Respiratory Rate 12 Setting Ventilator Respiratory Rate 12 Setting Ventilator Respiratory Rate 12 Setting Ventilator Respiratory Rate 12 Setting Ventilator Respiratory Rate 12 Setting Ventilator Respiratory Rate 12 Setting Ventilator Respiratory Rate 12 Setting Ventilator Respiratory Rate 12 Setting Ventilator Respiratory Rate 12 Setting Ventilator Respiratory Rate 12 Setting Ventilator Respiratory Rate 12 Setting Actual Respiratory Rate 18 Actual Respiratory Rate 16 Actual Respiratory Rate 16 Actual Respiratory Rate 17 Actual Respiratory Rate 18 Actual Respiratory Rate 18 Actual Respiratory Rate 16 Actual Respiratory Rate 17 Actual Respiratory Rate 18 Actual Respiratory Rate 17 Actual Respiratory Rate 18 Actual Respiratory Rate 19 Positive End Expiratory 5 Pressure Positive End Expiratory 5 Pressure Positive End Expiratory 5 Pressure Positive End Expiratory 5 Pressure Positive End Expiratory 5 Pressure Positive End Expiratory 5 Pressure Positive End Expiratory 5 Pressure Positive End Expiratory 5 Pressure Positive End Expiratory 5 Pressure Positive End Expiratory 5 Pressure Positive End Expiratory 5 Pressure Positive End Expiratory 5 Pressure Positive End Expiratory 5 Pressure Peak Inspiratory Airway 11 Pressure Peak Inspiratory Airway 14 Pressure Peak Inspiratory Airway 14 Pressure Peak Inspiratory Airway 6 Pressure Peak Inspiratory Airway 12 Pressure Peak Inspiratory Airway 6 Pressure Peak Inspiratory Airway 6 Pressure Peak Inspiratory Airway 12 Pressure Peak Inspiratory Airway 6 Pressure Peak Inspiratory Airway 7 Pressure Peak Inspiratory Airway 12 Pressure Peak Inspiratory Airway 7 Pressure Results - Laboratory Findings CBC and BMP: 03/06/19 03:50 03/06/19 03:50 ABG ABG pH 7.31 pH Units (7.32-7.45) L 03/06/19 05:21 ABG pCO2 50 mmHg (35-45) H 03/06/19 05:21 ABG pO2 100 mmHg (85-104) 03/06/19 05:21 ABG O2 Saturation 97 % (95-98) 03/06/19 05:21 PT/INR, D-dimer PT 13.3 Seconds (9.4-12.1) H 03/05/19 18:16 Abnormal lab findings: Abnormal lab results WBC 14.2 K/mcL (4.3-11.1) H 03/06/19 03:50 RBC 3.30 M/mcL (4.19-5.50) L 03/06/19 03:50 Hgb 11.0 g/dL (12.9-16.9) L 03/06/19 03:50 Hct 32.0 % (37.5-50.1) L 03/06/19 03:50 Neutrophils # 12.6 K/mcL (1.6-8.9) H 03/06/19 03:50 PT 13.3 Seconds (9.4-12.1) H 03/05/19 18:16 APTT 39.4 Seconds (26.0-36.0) H 03/05/19 18:16 ABG pH 7.31 pH Units (7.32-7.45) L 03/06/19 05:21 ABG pCO2 50 mmHg (35-45) H 03/06/19 05:21 ABG pO2 570 mmHg (85-104) H 03/05/19 18:46 ABG HCO3 17 mEq/L (21-27) L 03/05/19 18:46 ABG Total CO2 27 mEq/L (20-26) H 03/06/19 05:21 ABG O2 Saturation 100 % (95-98) H 03/05/19 18:46 ABG Base Excess -10 mEq/L (-2 to 3) L 03/05/19 18:46 Sodium 135 mEq/L (136-145) L 03/05/19 18:16 Carbon Dioxide 22 mEq/L (23-29) L 03/06/19 03:50 BUN 28 mg/dL (8-23) H 03/06/19 03:50 Creatinine 1.48 mg/dL (0.70-1.30) H 03/06/19 03:50 Est GFR ( Amer) 56 (> 60) L 03/06/19 03:50 Est GFR (Non-Af Amer) 46 (> 60) L 03/06/19 03:50 Glucose 228 mg/dL (70-105) H 03/06/19 03:50 POC Glucose 229 mg/dL (70-99) H 03/06/19 05:22 Calculated Osmolality 302 (280-300) H 03/05/19 18:16 Lactic Acid 5.6 mmol/L (0.5-2.2) H* 03/05/19 18:16 AST 161 Units/L (13-39) H 03/06/19 03:50 ALT 175 Units/L (7-52) H 03/06/19 03:50 Troponin I 2.30 ng/mL (< 0.04) H* 03/06/19 03:50 B-Natriuretic Peptide 515 pg/mL (Less than 100) H 03/05/19 18:16 Serum Total Protein 5.5 g/dL (6.4-8.9) L 03/06/19 03:50 Globulin 2.0 g/dL (2.4-3.5) L 03/06/19 03:50 - Clinical Findings Intake & Output: Intake & Output 03/05/19 03/05/19 03/06/19 15:59 23:59 07:59 Intake Total 200 / 200 309 / 309 Output Total 450 / 450 0 / 0 Balance -250 / -250 309 / 309 Weight 82.3 kg
[2019-03-06 07:20] LABS: Magnesium 2.3 mg/dL (1.6-2.6)
[2019-03-06] MEDS ORDERED: Perflutren Lipid Microsphere 1.3 ML in 0.9 % Sodium Chloride 8.7 ML IVP ONE (07:22)
[2019-03-06 07:27] LABS: VBG Ionized Calcium 1.15 mmol/L (1.15-1.35)
[2019-03-06] MEDS: Valsartan 80 MG TABLET PO SCH ×2 (07:52→20:04)
[2019-03-06] MEDS ORDERED: Magnesium Oxide 400 MG TABLET PO SCH (09:00)
[2019-03-06] MEDS ORDERED: Furosemide 20 MG TABLET PO SCH (09:00)
[2019-03-06] MEDS ORDERED: Aspirin Enteric Coated 81 MG Tablet PO SCH (09:00)
[2019-03-06] MEDS ORDERED: Isosorbide MONOnitrate (24 HR) 30 MG TAB.ER.24H PO SCH (09:00)
[2019-03-06] MEDS: Budesonide/Formoterol 160/4.5 1 PUFF INH IH SCH ×2 (09:57→21:47)
[2019-03-06] MEDS: Amiodarone Premix 360 MG/200 ML BAG IVC SCH ×2 (10:54→21:00)
[2019-03-06] MEDS ORDERED: *HR* Heparin 5,000 UNIT/ML VIAL IVP PRN ×2 (11:38)
[2019-03-06] MEDS ORDERED: *HR* Heparin 5,000 UNIT/ML VIAL IVP ONE (11:38)
[2019-03-06] MEDS ORDERED: Heparin 25,000 UNIT/250 ML D5W 25,000 UNIT/250 ML IV.SOLN IVC SCH (11:45)
--- NOTE | 2019-03-06 12:26 | Cardiology Progress Note ---
Date of Encounter: 03/06/19 Time of Encounter: 09:15 Assessment and Plan (1) Cardiac arrest Current Visit: Yes Status: Resolved Per cardiology: -Patient sp VT/VF arrest x~25 minutes per ED with ROSC. -S/P LHC yesterday without intervention. -On amiodarone drip, no recurrence of VT noted. -Currently extubated. -TTE pending. -Continue amiodarone. -Appreciate critical care team assistance. (2) Ventricular tachycardia Current Visit: Yes Status: Resolved Per cardiology: -Admitted with VT, was defibrillated multiple times in ER> -On amiodarone drip. On BB. -No recurrence of VT noted. -K 3.8, Mg 2.3. -TTE pending. LV gram per [facility] with LVEF 20%. -Keep K >4, Mg >2. -Continue amiodarone, BB. -Plan for EP consult on Thursday for evaluation of ICD placement for secondary prevention. (3) NSTEMI (non-ST elevated myocardial infarction) Current Visit: Yes Status: Acute Per cardiology: -Troponins 0.42, 2.3 in the setting of cardiac arrest, VT, multiple defibrillations. -Denies chest pain. -S/p LHC yesterday without intervention. Medical management recommended. -On asa, plavix, statin, BB. -TTE pending. -Continue current medical therapy. (4) Cardiomyopathy Current Visit: Yes Status: Chronic Per cardiology: -Known ischemic cardiomyopathy. -12/2018 TTE [facility] with LVEF 45%, hypokinesis of basal to mid inferior and inferolateral segments of LV. Mild to moderate MR, mild AR. -ON BB, ARB. On po lasix. Euvolemic on exam. -Currently TTE pending. -Continue current medical therapy. Qualifiers: Cardiomyopathy type: ischemic Qualified Code(s): I25.5 - Ischemic cardiomyopathy (5) PAF (paroxysmal atrial fibrillation) Current Visit: Yes Status: Chronic Per cardiology: -Known PAF. -ON BB, HR controlled. -Had been on eliquis in outpatient setting for anticoagulation. -Continue BB. -Will hold eliquis for now, pending EP evaluation. Will start heparin drip for anticoagulation. (6) CAD (coronary artery disease) Current Visit: No Status: Chronic Per cardiology: -Known history of CAD s/p CABG, re-do CABG, and PCI. -Continue current medical therapy. Qualifiers: Coronary Disease-Associated Artery/Lesion type: bypass graft [place] vs. transplanted heart: [place] heart Associated angina: with unstable angina Qualified Code(s): I25.700 - Atherosclerosis of coronary artery bypass graft(s), unspecified, with unstable angina pectoris Discussion w patient/family: The assessment and plan as outlined above was discussed with the patient who expressed understanding and agreement. All questions were answered. Thank you for involving us in the care of your patient. Please call with any questions. Discussed and reviewed with . Subjective Principal diagnosis: VT, cardiac arrest Interval history: Patient extubated in ICU. Denies complaints today. Somewhat lethargic on exam. Objective Vital Signs, Last 4 Hours Temp Pulse Resp BP Pulse Ox 03/06/19 11:46 97.9 F 03/06/19 11:00 82 15 141/66 99 03/06/19 10:00 80 14 129/78 100 03/06/19 09:00 77 15 126/59 99 General: Conversant, No Apparent Distress, Other (Slightly lethargic today on exam. ) HEENT: Atraumatic, Normocephaly, Mucus Membranes Moist Neck: No JVD, Normal carotid pulses Cardiac: Reg Rate and Rhythm, Normal S1 and S2, No Murmur Lungs: Normal Breath Sounds, No Wheeze, Rales, Rhonchi Neuro: Alert and responsive, No focal deficits noted Abdomen: Soft, Non-Tender Skin: No rashes noted on visualized skin Musculoskeletal: No Chest Wall Tenderness Extremities: No Clubbing, No Cyanosis, No Edema, Normal Pulses, Other (Left BKA. ) Results 03/06/19 03:50 03/06/19 03:50 Lab Results Impressions Chest X-Ray 03/05/19 18:10 IMPRESSION: Tip of the endotracheal tube is 4 cm above the avery. Curvilinear interface at the left lung apex. Although this is most likely a skin fold, consider follow-up chest radiograph to exclude less likely possibility of small pneumothorax. No focal consolidation or significant pleural effusion. D/ / 03/05/2019 18:58:45 Willie Wilkinson MD / [facility] Interpreting Provider: Willie Wilkinson MD Active Medications Acetaminophen (Tylenol) 500 mg PO Q6HR PRN PRN Reason: Mild Pain Stop: 09/04/19 19:08 Albuterol Sulfate (Proventil Inhaler) 2 puff IH Q8H PRN PRN Reason: Shortness Of Breath Stop: 09/04/19 19:58 Albuterol/Ipratropium (Duoneb) 3 ml IH [id number] [facility] Stop: 09/05/19 04:01 Last Admin: 03/06/19 09:55 Dose: 3 ml Documented by: Aspirin (Aspirin Ec) 81 mg PO DAILY [facility] Stop: 09/05/19 09:01 Last Admin: 03/06/19 07:52 Dose: Not Given Documented by: Atorvastatin Calcium (Lipitor) 10 mg PO DAILY [facility] Stop: 09/05/19 09:01 Last Admin: 03/06/19 07:53 Dose: Not Given Documented by: Benzonatate (Tessalon) 100 mg PO Q4H PRN PRN Reason: Cough Stop: 09/04/19 19:58 Budesonide/Formoterol Fumarate (Symbicort) 2 puff IH BIDR [facility]; Protocol Stop: 09/04/19 22:01 Last Admin: 03/06/19 09:57 Dose: 2 puff Documented by: Carvedilol (Coreg) 25 mg PO BIDWM [facility]; Protocol Stop: 09/04/19 21:01 Last Admin: 03/06/19 07:52 Dose: Not Given Documented by: Clopidogrel Bisulfate (Plavix) 75 mg PO DAILY [facility] Stop: 09/05/19 09:01 Last Admin: 03/06/19 07:53 Dose: Not Given Documented by: Dextrose/Water (Dextrose 50% (Syg)) 25 ml IVP AD PRN PRN Reason: Hypoglycemia Stop: 09/04/19 20:03 Diphenhydramine HCl (Benadryl) 25 mg PO HS PRN PRN Reason: Insomnia Stop: 09/04/19 19:57 Furosemide (Lasix) 20 mg PO QAM [facility] Stop: 09/05/19 09:01 Last Admin: 03/06/19 07:52 Dose: Not Given Documented by: Glucagon (Glucagen) 1 mg IM ONCE PRN PRN Reason: Hypoglycemia Stop: 09/04/19 20:03 Glucose (Gluctose) 15 gm PO ONCE PRN PRN Reason: Hypoglycemia Stop: 09/04/19 20:03 Glucose (Gluctose) 30 gm PO ONCE PRN PRN Reason: Hypoglycemia Stop: 09/04/19 20:03 Guaifenesin (Mucinex) 600 mg PO DAILY PRN PRN Reason: Congestion Heparin Sodium (Porcine) (Heparin) 5,800 unit 70 unit/kg (5800 unit) IVP Q6HR PRN PRN Reason: SEE COMMENTS Stop: 09/05/19 11:39 Heparin Sodium (Porcine) (Heparin) 2,900 unit 35 unit/kg (2900 unit) IVP Q6H PRN PRN Reason: SEE COMMENTS Stop: 09/05/19 11:39 Fentanyl Citrate 1,000 mcg/ (Sodium Chloride) 100 mls @ 5 mls/hr IVC [facility]; Protocol Stop: 09/04/19 18:16 Last Titration: 03/06/19 08:30 Dose: 25 mcg/hr, 2.5 mls/hr Documented by: Midazolam HCl 50 mg/ Sodium (Chloride) 100 mls @ 4 mls/hr IVC [facility]; Protocol Stop: 09/04/19 18:16 Last Titration: 03/06/19 06:21 Dose: 0 mg/hr, 0 mls/hr Documented by: Norepinephrine Bitartrate 4 mg (/ Sodium Chloride) 254 mls @ 19.05 mls/hr IVC [facility]; Protocol Stop: 09/04/19 18:31 Last Admin: 03/05/19 22:07 Dose: Not Given Documented by: Amiodarone HCl/Dextrose (Amiodarone Drip Premix 360mg/200ml) 360 mg in 200 mls @ 16.667 mls/hr IVC [facility] Stop: 09/04/19 19:16 Last Admin: 03/06/19 10:54 Dose: 0.5 mg/min, 16.7 mls/hr Documented by: Dextrose (Dextrose 5%) 1,000 mls @ 100 mls/hr IVC .Q10H PRN PRN Reason: HYPOGLYCEMIA Stop: 09/04/19 20:03 Heparin Sodium/Dextrose (Heparin 25,000 Unit/250 Ml D5w) 25,000 unit in 250 mls @ 11.522 mls/hr IVC .[id number] [facility]; Protocol Stop: 09/05/19 11:46 Insulin Human Lispro (Humalog) 0 units SQ Q6HR [facility]; Protocol Stop: 09/05/19 00:01 Last Admin: 03/06/19 06:20 Dose: 8 units Documented by: Isosorbide Mononitrate (Imdur) 15 mg PO DAILY [facility] Stop: 09/05/19 09:01 Last Admin: 03/06/19 07:52 Dose: Not Given Documented by: Lansoprazole (Prevacid) 30 mg GTUBE DAILY@0730 [facility] Stop: 09/05/19 07:31 Last Admin: 03/06/19 07:52 Dose: Not Given Documented by: Magnesium Oxide (Mag-Ox) 400 mg PO DAILY [facility] Stop: 09/05/19 09:01 Last Admin: 03/06/19 07:53 Dose: Not Given Documented by: Nitroglycerin (Nitroglycerin) 0.4 mg SL Q5MIN PRN PRN Reason: CHEST PAIN Stop: 09/04/19 19:58 Nortriptyline HCl (Pamelor) 10 mg PO TID [facility] Stop: 09/04/19 21:01 Last Admin: 03/06/19 07:53 Dose: Not Given Documented by: Terazosin HCl (Hytrin) 2 mg PO HS [facility] Stop: 09/04/19 21:01 Last Admin: 03/05/19 22:08 Dose: Not Given Documented by: Valsartan (Diovan) 40 mg PO BID [facility] Stop: 09/04/19 21:01 Last Admin: 03/06/19 07:52 Dose: Not Given Documented by: Laboratory Tests 03/05/19 03/06/19 03/06/19 18:16 03:50 03:50 WBC 14.2 H Hgb 11.0 L Creatinine 1.83 H 1.48 H Troponin I 0.42 H* 2.30 H* - Imaging and Cardiology Chest Xray: report reviewed Echo: pending, report reviewed Cardiac cath: report reviewed Consult Discharge Plan - Plan Referrals: [facility] [Primary Care Provider] -
[2019-03-06 13:24] LABS: Hematocrit 33.3 % (37.5-50.1); Hemoglobin 11.7 g/dL (12.9-16.9); Mean Corpuscular HGB Conc 35.1 g/dL (31.6-35.5); Mean Corpuscular Hemoglobin 33.2 pg (28.0-33.3); Mean Corpuscular Volume 94.6 fL (83.0-100.0); Mean Platelet Volume 9.6 fL (9.4-12.4); Platelet Count 169 K/mcL (140-400); Red Blood Count 3.52 M/mcL (4.19-5.50); Red Cell Distribution Width 12.2 % (11.5-14.5); White Blood Count 19.4 K/mcL (4.3-11.1)
[2019-03-06 13:32] LABS: Heparin anti-factor XA UFH 0.09 IU/mL (0.30-0.70); INR 1.1
[2019-03-06] MEDS: Norepinephrine 4 MG in 0.9 % Sodium Chloride 250 ML IVC SCH (14:54)
[2019-03-06] MEDS ORDERED: Dexmedetomidine HCl 400 MCG/100 ML MLS IVC ONE (22:44)
[2019-03-06] MEDS ORDERED: Dexmedetomidine HCl 400 MCG/100 ML MLS IVC SCH (22:45)
[2019-03-07 01:50] LABS: ABG Base Excess -6 mEq/L (-2 to 3); ABG HCO3 19 mEq/L (21-27); ABG Oxygen Saturation 99 % (95-98); ABG PCO2 33 mmHg (35-45); ABG PH 7.36 pH Units (7.32-7.45); ABG PO2 128 mmHg (85-104); ABG TCO2 20 mEq/L (20-26); Blood Gas PEEP 6 cm H2O
[2019-03-07] MEDS ORDERED: 0.9 % Sodium Chloride 1,000 ML ONE (02:32)
[2019-03-07] MEDS ORDERED: Morphine Sulfate 2 MG/ML SYRINGE IVP ONE (02:39)
[2019-03-07] MEDS ORDERED: 0.9 % Sodium Chloride 1,000 ML IVC ONE (02:39)
[2019-03-07] MEDS ORDERED: Morphine Sulfate 2 MG/ML SYRINGE IVP PRN (03:04)
--- NOTE | 2019-03-07 03:09 | Event Note ---
Date of Encounter: 03/07/19 Time of Encounter: 03:09 Because notified by the nurse and patient remains restless; continues to ride in bed and complaining of pain. His blood pressure dropped into the 60s systolic after initiating Precedex for treatment of his anxiety and was immediately discontinued. Blood pressure partially rebounded with systolics now in the 70s to 80s. Patient remains tachypneic in the 20s to 30s and complaining of generalized pain. Currently on 25 of fentanyl. An additional 4 mg of morphine IV push was given with hopes of improving pain and breathing. Discussion of patient's CODE STATUS ensued due to patient's instability. Patient was alert oriented 3, following commands and coherent. He stated he did not want to undergo CPR but was amenable to intubation. CODE STATUS changed to DNR CCA. Patient's brother was called and updated and was understanding with regard to patient's wishes. At 3:45 AM patient continued to remain tachypneic in the 30's and agitated despite titrating up his fentanyl and giving additional morphine. This point the decision was made to intubate patient. Patient given Versed and successfully intubated shortly thereafter. We will resume Versed in addition of fentanyl for sedation. IO placed in the right tibia due to hypotension; BP 60's/40's. Levofed initiated with good response.
[2019-03-07] MEDS ORDERED: *HR* Midazolam HCl 5 MG/5 ML VIAL IVP ONE ×2 (03:31→03:35)
[2019-03-07] MEDS: Ipratropium/Albuterol Neb 3 ML IH SCH ×2 (04:07→10:31)
[2019-03-07] MEDS: Norepinephrine 4 MG in 0.9 % Sodium Chloride 250 ML IVC SCH (04:24)
[2019-03-07] MEDS: FentaNYL (PF) 1,000 MCG in 0.9 % Sodium Chloride 80 ML IVC SCH (05:09)
[2019-03-07] MEDS: *HR* Atropine Sulfate 1 MG/10 ML SYRINGE ONE ×2 (05:10→06:45)
[2019-03-07 05:24] LABS: ABG Base Excess -10 mEq/L (-2 to 3); ABG HCO3 17 mEq/L (21-27); ABG Oxygen Saturation 96 % (95-98); ABG PCO2 41 mmHg (35-45); ABG PH 7.22 pH Units (7.32-7.45); ABG PO2 97 mmHg (85-104); ABG TCO2 18 mEq/L (20-26); Blood Gas Modality ASSIST CONTROL; Blood Gas PEEP 5 cm H2O; Blood Gas VT 500 cc
[2019-03-07 06:03] VITALS: BP 76/47
[2019-03-07] MEDS ORDERED: EPINEPHrine 1 MG in D5% in Water 250 ML IVC SCH (07:00)
--- NOTE | 2019-03-07 07:05 | Death Note ---
Pronouncement Note - Date and Time of Date of : 03/07/19 Time of : 06:56 - PCOD Preliminary cause of : Cardiac arrest - Additional Data Confirmation of : no pulse, no respirations, no heart sounds, pupils fixed and dilated Family: contacted Attending/PCP notified?: No Attending physician: Clem Tucker MD Was code activated?: No crime scene examiner notified?: No
--- NOTE | 2019-03-07 07:16 | Event Note ---
Date of Encounter: 03/07/19 Time of Encounter: 06:45 Was informed by nurse at 6:41 AM in patient's heart rate dropped into the low 50s. Patient additionally became hypotensive with a blood pressure the 60s over 40s. Patient was maxed out on levofed. Dopamine drip was ordered in an attempt to improve heart rate and blood pressure.. I arrived to patient's bedroom at 6:45. Dopamine drip was running. Heart rate remained in the 40s to 50s. Patient was no longer breathing over the vent as during previous assessment. Blood pressure unchanged. Was unable to obtain a pulse to palpation. Attempt was made with Doppler without success. At 6:50 AM monitor showed no evidence of heartbeat. After evaluation, patient was pronounced at 6:56 AM. Nurse currently attempting to reach out to patient's brother.
--- NOTE | 2019-03-07 07:17 | Event Note ---
<Pedro Pablo Cobb N - Last Filed: 03/07/19 08:20> Date of Encounter: 03/07/19 Time of Encounter: 07:10 informed by the nurse at this time that the patient had passed. Patient is documented as DNR-CCA. Patient was maxed out on the Levophed and dopamine at the time of his passing. The hospitalist was called and patient was pronounced at that time. pronouncement note entered by the hospitalist. <Chuy Mckeon M - Last Filed: 03/07/19 08:48> Date of Encounter: 03/07/19 I examined this patient and my medical decision-making was reviewed with the Resident Physician. I agree with the documented findings, disposition and treatment plan as described except to the extent set forth below. Patient was pronounced before I saw him and discharge summary and certificate to be signed by hospitalist/rn traveling.
--- NOTE | 2019-03-07 08:23 | Death Note ---
<Pedro Pablo Cobb N - Last Filed: 03/07/19 10:27> Discharge Sum: Summary - Date and Time Date of admission: 03/05/19 19:39 Date of : 03/07/19 Time of : 06:56 - Summary Details: As noted in event note - Additional Data Confirmation of as documented by pronouncing clinician: no pulse, no respirations, no heart sounds, pupils fixed and dilated Family: contacted Additional persons at bedside: other (RN) Attending/PCP notified?: Yes Attending physician: Clem Tucker MD Was code activated?: No Autopsy requested?: No merchandise examiner notified?: No Organ bank notified?: No Advance directives: No Hospice patient?: No Discharge Sum: Diag - PCOD Probable Cause of : Heart failure Discharge Sum: Prov - Provider Primary care physician: [facility] Consults: 03/05/19 19:07 Consult to Cardiac Rehabilitation-Phase1 [CONS] Routine Comment: Reason for Consult: AMI Call Completed: Yes Consult to Nurse Navigator [CONS] Routine Comment: 03/05/19 19:10 Consult to Hospitalist [CONS] Stat Consulting Provider: Hospitalist [place] Reason for Consult: copd / ventilated patient. sp VT arrest Call Completed: No 03/05/19 21:15 Consult to Critical Care [CONS] Routine Consulting Provider: [facility]m [facility] [place] Reason for Consult: Patient developed V-tach cardiac arrest. Call Completed: No 03/05/19 21:26 Consult to Electrophysiology (EP) [CONS] Routine Consulting Provider: Electrophysiology [place] Reason for Consult: s/p V-tach cardiac arrest and seen to have an EF of 20%. Call Completed: No Pronouncing clinician: Ranjan Hatfield <Chuy Mckeon M - Last Filed: 03/09/19 15:34> Discharge Sum: Summary - Date and Time Date of admission: 03/05/19 19:39 - Additional Data Attending physician: Clem Tucker MD Discharge Sum: Prov - Provider Primary care physician: [facility]CP [facility] Consults: 03/05/19 19:07 Consult to Cardiac Rehabilitation-Phase1 [CONS] Routine Comment: Reason for Consult: AMI Call Completed: Yes Consult to Nurse Navigator [CONS] Routine Comment: 03/05/19 19:10 Consult to Hospitalist [CONS] Stat Consulting Provider: Hospitalist [place] Reason for Consult: copd / ventilated patient. sp VT arrest Call Completed: No 03/05/19 21:15 Consult to Critical Care [CONS] Routine Consulting Provider: [facility] [place] Reason for Consult: Patient developed V-tach cardiac arrest. Call Completed: No 03/05/19 21:26 Consult to Electrophysiology (EP) [CONS] Routine Consulting Provider: Electrophysiology [place] Reason for Consult: s/p V-tach cardiac arrest and seen to have an EF of 20%. Call Completed: No - Attending Attestation Resident told me about this patient, but I didn't see him and discharge summary was done by hospitalist.
[2019-03-07] MEDS: Budesonide/Formoterol 160/4.5 1 PUFF INH IH SCH (10:32)
--- NOTE | 2019-03-07 22:43 | Electrocardiograph Report ---
[address] [place], [place] [address] Test Date: 2019-03-05 Pat Name: Jeevan Barcenas Department: TRAUMA2 Room: 02 Gender: M Telephone Supervisor: : 1940 Requested By: Marc Randolph Order Number: [id number] Reading MD: Clifford Castro Measurements Intervals [place] Rate: 147 P: FL: QRS: -89 QRSD: 117 T: 82 QT: 375 QTc: 546 Interpretive Statements Wide complex tachycardia Likely bidirectional VT Electronically Signed On 03-07-2019 22:41:53 EDT by Clifford Castro
--- NOTE | 2019-03-07 22:47 | Electrocardiograph Report ---
[address] [place], [place] [address] Test Date: 2019-03-05 Pat Name: Jeevan Barcenas Department: TRAUMA2 Room: 02 Gender: M Senior Android Developer: : 1940 Requested By: Clem Tucker Order Number: [id number] Reading MD: Clifford Castro Measurements Intervals [place] Rate: 109 P: 0 CT: QRS: -89 QRSD: 164 T: 94 QT: 409 QTc: 551 Interpretive Statements Ventricular tachycardia Electronically Signed On 03-07-2019 22:51:05 EDT by Clifford Castro
--- NOTE | 2019-03-07 22:51 | Electrocardiograph Report ---
[place] [address] Test Date: 2019-03-05 Pat Name: Jeevan Barcenas Department: 109 Room: 02 Gender: M Automatic Screwmaker: : 1940 Requested By: Clem Tucker Order Number: [id number] Reading MD: Clifford Castro Measurements Intervals [place] Rate: 85 P: -74 RI: 236 QRS: -88 QRSD: 153 T: 49 QT: 427 QTc: 469 Interpretive Statements SINUS RHYTHM WITH 1ST DEGREE AVB MARKED LEFT AXIS DEVIATION IVCD Electronically Signed On 03-07-2019 22:49:38 EDT by Clifford Castro
--- NOTE | 2019-03-08 10:26 | Electrocardiograph Report ---
[address] [address] Test Date: 2019-03-07 Pat Name: Jeevan Barcenas Department: 109 Room: 02 Gender: M Senior Coldfusion Developer: : 1940 Requested By: Ranjan Hatfield Order Number: [id number] Reading MD: Clifford Castro Measurements Intervals [place] Rate: 72 P: MS: 0 QRS: 20 QRSD: 126 T: 110 QT: 445 QTc: 469 Interpretive Statements ATRIAL FIBRILLATION WITH ABERRANT CONDUCTION OR VENTRICULAR PREMATURE COMPLEXES MODERATE INTRAVENTRICULAR CONDUCTION DELAY NONSPECIFIC ST & T-WAVE ABNORMALITY PROLONGED QT INTERVAL Electronically Signed On 03-08-2019 10:24:32 EDT by Clifford Castro
--- NOTE | 2019-03-11 17:37 | Electrocardiograph Report ---
[place] Test Date: 2019-03-05 Pat Name: Jeevan Barcenas Department: TRAUMA2 Room: 02 Gender: M Photograph Retoucher: : 1940 Requested By: Clem Tucker Order Number: [id number] Reading MD: Sunday Canales Measurements Intervals [place] Rate: 191 P: 58 NV: 88 QRS: 243 QRSD: 157 T: 66 QT: 292 QTc: 526 Interpretive Statements Extreme tachycardia with wide complex, no further rhythm analysis attempted Baseline wander in lead(s) II III aVF V1 V3 V4 V6 Electronically Signed On 03-11-2019 17:35:42 EDT by Sunday Canales
== END 2019-03-07 06:56 | disposition expired ==
LOC: EMEROOARM 17:08 → ICNU 18:53
PROVIDERS: ADMIT Emergency Medicine; ATTEND Emergency Medicine